=== PATIENT | male | born 1940 | race American Indian/Alaskan Native ===

== ENCOUNTER 2022-06-25 07:56 | Inpatient (IN) | payer MEDICARE ==
[2022-06-25] MEDS ORDERED: SODIUM CHLORIDE 0.9% 1000 ML 1,000 ML ONE (08:05)
[2022-06-25] MEDS ORDERED: SODIUM CHLORIDE 0.9% 1000 ML IV SOLN IV ONE (08:07)
--- NOTE | 2022-06-25 08:16 | Emergency Department Report ---
ED General Adult HPI - General Chief complaint: Altered Mental Status Stated complaint: AMS Time Seen by Provider: 06/25/22 07:59 Source: patient, EMS Mode of arrival: Stretcher Limitations: Altered Mental Status - History of Present Illness Initial comments: This is an 82-year-old male with medical history of stroke about 13 years ago and also prostate cancer who was recently started on bicalutamide this past Saturday brought in by EMS. Called out to EMS was a stroke like symptoms due to AMS and right sided weakness. EKG was done by EMS and with ST elevation; however, EKG was not transmitted to the ER prior to arrival. On arrival, patient was alert and oriented and denies any discomfort; denies chest discomfort/palpitation. Patient has right sided of upper extremity weakness which daughter states that has been going on since Saturday after he was started bicalutamide and noticed it was getting worse yesterday (unknown time) but today not able to move it. Per daughter, patient is able to walk with a front wheel walker at baseline and also is able to move his both upper extremities before as well. EMS EKG WAS SENT TO DR. BREWER AT [phone] AT 07:56AM; STATES ITS NOT STEMI BUT AF W/ BBB. CODE STROKE WAS ACTIVATED IMMEDIATELY. Severity scale (0 -10): 0 - Related Data Allergies Allergy/AdvReac Type Severity Reaction Status Date / Time No Known Allergies Allergy Verified 06/25/22 08:03 ED Review of Systems ROS: Stated complaint: AMS Other details as noted in HPI Comment: All other systems reviewed and negative Constitutional: no symptoms reported Eyes: as per HPI ENT: as per HPI Respiratory: no symptoms reported Cardiovascular: as per HPI Endocrine: no symptoms reported Gastrointestinal: as per HPI Musculoskeletal: other (RIGHT UPPER EXTREMITY WEAKNESS) Skin: as per HPI Neurological: other (RIGHT UPPER EXTREMITY WEAKNESS). denies: headache, weakness, numbness, paresthesias, confusion, abnormal gait Psychiatric: as per HPI Hematological/Lymphatic: as per HPI ED Past Medical Hx - Past Medical History Previous Medical History?: Yes Hx CVA: Yes Hx of Cancer: Yes (PROSTATE) ED Physical Exam - General Limitations: Altered Mental Status ED Course Vital Signs 06/25/22 06/25/22 06/25/22 07:59 08:11 08:34 Temperature 100.2 F H Pulse Rate 76 77 Respiratory 16 10 L Rate Blood Pressure Blood Pressure 78/40 [Left] O2 Sat by Pulse 100 99 Oximetry 06/25/22 06/25/22 08:45 09:01 Temperature Pulse Rate 79 Respiratory 21 Rate Blood Pressure 92/46 Blood Pressure [Left] O2 Sat by Pulse 98 Oximetry - Consultations Consultation #1: 06/25/22 08:21 EMS EKG WAS SENT TO DR. BREWER AT [phone] AT 07:56AM; STATES ITS NOT STEMI BUT AF W/ BBB. CODE STROKE WAS ACTIVATED IMMEDIATELY. PER NURSE, TELE NEUROLOGIST RECOMMEND CT HEAD W/O CONTRAST. ALSO NURSE BROUGHT TO MY ATTENTION THAT PATIENT'S BLOOD PRESSURE IS SOFT (78/40)WITH TEMPERATURE OF 100.2; I WILL EMPERICALLY BOLUS PATIENT AT 30MG/KG AND START SEPSIS PROTOCOL WELL. 06/25/22 08:[address] GAUTHIER; WOULDN'T TPA; BUT WOULD ADMIT FOR ENCEPHALOPATHY WORK UP AND GET MRI INPATIENT. WILL WAIT FOR REST OF LABS TO RETURN AND THEN ADMIT PATIENT. 06/25/22 10:[address] shelley who kindly accepted the patietn. ED Medical Decision Making - Lab Data Result diagrams: 06/25/22 08:23 06/25/22 08:23 Critical care attestation.: If time is entered above; I have spent that time in minutes in the direct care of this critically ill patient, excluding procedure time. ED Disposition Clinical Impression: Hypocalcemia, AMS (altered mental status), Prolonged QT interval Disposition: ADMITTED INPATIENT Is pt being admited?: Yes Does the pt Need Aspirin: No Condition: Stable Time of Disposition: 10:52
--- NOTE | 2022-06-25 08:42 | Cat Scan Report ---
CT HEAD WITHOUT CONTRAST INDICATION / CLINICAL INFORMATION: stroke protocol. TECHNIQUE: All CT scans at this location are performed using CT dose reduction for ALARA by means of automated e xposure control. COMPARISON: None available. FINDINGS: HEMORRHAGE: No evidence of intracranial hemorrhage or extra-axial fluid collection. EXTRA-AXIAL SPACES: Focal dilatation of cortical sulci and enlargement of the left sylvian fissure is noted adjacent to encephalomalacia secondary to large remote left MCA infarction. Elsewhere, the cor tical sulci and sylvian fissures are enlarged reflecting a degree of parenchymal volume loss which is within normal limits for the patient's age of 82 years. Basilar cisterns have an unremarkable appear ance. VENTRICULAR SYSTEM: The third and lateral ventricles are enlarged reflecting presence of age related parenchymal volume loss. In addition there is ex vacuo dilatation of the atria and occipital horn of the left lateral ventricle. CEREBRAL PARENCHYMA: Large areas of encephalomalacia are observed involving much of the left temporal lobe and portions of the left frontal operculum. Additional areas of encephalomalacia are observed i n the left parietal lobe and at the right frontoparietal vertex. These findings reflect the sequelae of multiple remote cortical infarctions. MIDLINE SHIFT OR HERNIATION: There is no mass effect. CEREBELLUM / BRAINSTEM: Several remote infarctions are observed in the left cerebellar hemisphere. MIDLINE STRUCTURES:Pituitary gland has an unremarkable appearance. No abnormalities are seen in the p ineal region. INTRACRANIAL VESSELS:Calcified atherosclerotic plaque is present along the course of the cavernous se gments of both internal carotid arteries. Similar findings are seen at the distal vertebral arteries. CRANIOCERVICAL JUNCTION:No significant abnormality. ORBITS: visualized portions of the orbits have an unremarkable appearance. SOFT TISSUES of HEAD: No significant abnormality. CALVARIUM: Evaluation of bone windows reveals no abnormalities. PARANASAL SINUSES / MASTOID AIR CELLS: Paranasal sinuses are free from inflammatory mucosal disease. Mastoid air cells are normally pneumatized. IMPRESSION: 1. Age-related atrophy and microvascular ischemic change. 2. Large regions of encephalomalacia are present in multiple vascular distributions secondary to mult ifocal remote cortical infarctions as described above. 2. No acute intracranial abnormality. Signer Name: Jim Stokes MD Signed: 06/25/2022 8:37 AM Workstation Name: [id number]
--- NOTE | 2022-06-25 08:47 | XRay Report ---
CHEST 1 VIEW 06/25/2022 7:40 AM INDICATION / CLINICAL INFORMATION: stroke like symptoms. COMPARISON: None available. FINDINGS: SUPPORT DEVICES: None. HEART / MEDIASTINUM: Heart is upper normal size for AP portable technique. LUNGS / PLEURA: No significant pulmonary or pleural abnormality. No pneumothorax. ADDITIONAL FINDINGS: No significant additional findings. IMPRESSION: 1. No acute findings. Signer Name: Nasreen Brown MD Signed: 06/25/2022 8:42 AM Workstation Name: [id number]
--- NOTE | 2022-06-25 09:04 | Consultation ---
History of Present Illness - Reason for Consult Consult date: 06/25/22 - History of Present Illness [facility] Consult Note # Demographics Consult Type: Acute Stroke Level 1 (0-4.5 hrs) Patient Location: Emergency Room First Name: Jim Last Name: Laverne Date of : 1940 Age: 82 Gender: Male Facility: [facility] Time of Initial Page (Eastern Time): 06/25/2022, 08:00 Time of Return Call (Eastern Time): 06/25/2022, 08:00 # HPI History: 82yo man who has had increasing weakness and more confusion for the last day or so. # Scores Time of exam and NIHSS ( Time): 06/25/2022, 08:06 Level of Consciousness 1a: [0] = Alert; keenly responsive LOC Questions 1b: [1] = Answers one correctly LOC Commands 1c: [1] = Performs one correctly Best Gaze 2: [0] = Normal Visual 3: [0] = No visual loss Facial Palsy 4: [1] = Minor paralysis Motor Arm Left 5a: [1] = Drift Motor Arm Right 5b: [2] = Some effort against gravity Motor Leg Left 6a: [3] = No effort against gravity Motor Leg Right 6b: [3] = No effort against gravity Limb Ataxia 7: [0] = Absent Sensory 8: [0] = Normal Best Language 9: [3] = Mute Dysarthria 10: [2] = Severe dysarthria Extinction and Inattention 11: [0] = No abnormality NIHSS Total: 17 # Exam Vitals: vital signs reviewed # PMH-FH-SH Past Medical History: stroke baseline right sided weakness # Data Head CT: no bleed # Assessment Impression: Altered Mental Status Weakness # Plan Thrombolytic/Intervention: NOT IV Thrombolysis or IA Intervention candidate Thrombolytic Exclusion (< 3 hour window): time of onset unclear Intraarterial Exclusion: clinically not consistent with stroke Labs: Ammonia B12 comprehensive metabolic panel ESR liver function tests TSH urine drug screen ua Imaging: (urgency: routine): MRI Brain without contrast only if no other cause found for altered mentation Other: telemetry monitoring I have discussed my recommendations with the referring provider Medications and Allergies Allergies Allergy/AdvReac Type Severity Reaction Status Date / Time No Known Allergies Allergy Verified 06/25/22 08:03 Exam - Constitutional Vitals: Temp Pulse Resp BP Pulse Ox 100.2 F H 79 21 92/46 98 06/25/22 07:59 06/25/22 08:45 06/25/22 08:45 06/25/22 08:45 06/25/22 09:01
[2022-06-25 09:37] LABS: Hematocrit 37.5 % (35.5-45.6); Hemoglobin 11.9 gm/dl (11.8-15.2); Mean Corpuscular HGB Conc 32 % (32-34); Mean Corpuscular Volume 83 fl (84-94); Platelet Count 225 K/mm3 (140-440); Red Blood Count 4.54 M/mm3 (3.65-5.03); Red Cell Distribution Width 16.4 % (13.2-15.2)
[2022-06-25 09:43] LABS: INR 1.27 (0.87-1.13)
[2022-06-25 09:44] LABS: Partial Thromboplastin Time 34.3 Sec. (24.2-36.6)
[2022-06-25 09:49] LABS: Mucus,Urine FEW /HPF
[2022-06-25 09:55] LABS: Alanine Aminotransferase 30 units/L (7-56); Albumin 2.5 g/dL (3.9-5); BUN/Creatinine Ratio 13; Blood Urea Nitrogen 17 mg/dL (9-20); Calcium 7.2 mg/dL (8.4-10.2); Hemolysis Index 58
[2022-06-25 10:20] LABS: Bilirubin,Urine Negative (Negative); Blood,Urine Negative (Negative); Color,Urine Amber (Yellow); Protein,Urine <30 mg dL mg/dL (Negative)
[2022-06-25 10:21] LABS: Urobilinogen,Urine < 2.0 mg/dL (<2.0)
[2022-06-25] MEDS ORDERED: ALBUTEROL 2.5 MG/3 ML NEBU IH PRN (11:23)
[2022-06-25] MEDS ORDERED: PROMETHAZINE 25 MG RECT SUPP PR PRN (11:23)
[2022-06-25] MEDS ORDERED: NALOXONE 0.4 MG/1 ML INJ IV PRN (11:23)
[2022-06-25] MEDS ORDERED: ONDANSETRON 4 MG/2 ML INJ IV PRN ×2 (11:23)
[2022-06-25] MEDS ORDERED: METOCLOPRAMIDE 10 MG TAB PO PRN (11:23)
[2022-06-25] MEDS ORDERED: oxyCODONE /ACETAMINOPHEN 5-325MG TAB PO PRN ×2 (11:23)
[2022-06-25] MEDS ORDERED: ACETAMINOPHEN 325 MG TAB PO PRN ×2 (11:23)
[2022-06-25] MEDS ORDERED: MAGNESIUM HYDROXIDE (MOM) ORAL LIQD UDC PO PRN (11:23)
[2022-06-25] MEDS ORDERED: SODIUM BICARB 8.4% 50 MEQ/50 ML SYRINGE IV ONE (11:43)
--- NOTE | 2022-06-25 11:43 | History and Physical Report ---
History of Present Illness Date of examination: 06/25/22 Date of admission: 06/25/22 Chief complaint: AMS History of present illness: Patient is an 82-year-old male with past medical history of CVA about 13 years ago, stage IV prostate cancer currently started on bicalutamide 3 days ago. He presents to the ED today with complaints of strokelike symptoms worsening co nfusion and right-sided weakness with spasms. Per the the patient has some expressive aphasia that appeared to have worsened today and since the initiation of thebicalutamide the patient has been experiencing right-sided upper extremity weakness but today had increased spasm on the right upper extremity and worsening confusion today. They brought him to the ER where code stroke was called there was also concern of abnormality on the EKG which showed A. fib with bundle branch block instead. There was also noted hypotension and patient recommended for inpatient admission. Initial CT scan of the head shows the previous stroke but no acute pathology at this time. Patient does not present any fever patient is accompanied by the who denies any nausea vomiting or diarrhea. Patient was seen by teleneurology who states that he is not a candidate for tPA but recommended further stroke work-up if no other finding for the altered mental status Past History Past Medical History: stroke (Over 13 years ago) Social history: no significant social history, full code. denies: smoking, alcohol abuse, prescription drug abuse, IV drug use Family history: no significant family history Medications and Allergies Allergies Allergy/AdvReac Type Severity Reaction Status Date / Time No Known Allergies Allergy Verified 06/25/22 08:03 Home Medications Medication Instructions Recorded Confirmed Last Taken Type Bicalutamide [Casodex] 50 mg PO DAILY 06/25/22 06/25/22 06/24/22 History Simvastatin 20 mg PO DAILY 06/25/22 06/25/22 06/24/22 History Tamsulosin [Flomax] 0.4 mg PO QDAY 06/25/22 06/25/22 06/24/22 History lisinopriL [Lisinopril] 20 mg PO DAILY 06/25/22 06/25/22 06/24/22 History Active Meds: Active Medications Acetaminophen (Acetaminophen 325 Mg Tab) 650 mg PO Q4H PRN PRN Reason: Pain, Mild (1-3) Albuterol (Albuterol 2.5 Mg/3 Ml Nebu) 2.5 mg IH Q3HRT PRN PRN Reason: Shortness Of Breath Aspirin (Aspirin 325 Mg Tab) 325 mg PO QDAY RAMEZ Atorvastatin Calcium (Atorvastatin 40 Mg Tab) 40 mg PO QHS RAMEZ Bisacodyl (Bisacodyl 10 Mg Rect Supp) 10 mg CO QDAY PRN PRN Reason: Constipation Heparin Sodium (Porcine) (Heparin 5,000 Unit/1 Ml Vial) 5,000 unit SUB-Q Q8HR RAMEZ Magnesium Hydroxide (Magnesium Hydroxide (Mom) Oral Liqd Udc) 30 ml PO Q4H PRN PRN Reason: Constipation Metoclopramide HCl (Metoclopramide 10 Mg Tab) 10 mg PO Q6H PRN PRN Reason: Nausea And Vomiting Naloxone HCl (Naloxone 0.4 Mg/1 Ml Inj) 0.1 mg IV Q2MIN PRN PRN Reason: Res Rate </= 8 or 02 SAT < 92% Ondansetron HCl (Ondansetron 4 Mg/2 Ml Inj) 4 mg IV Q8H PRN PRN Reason: Nausea And Vomiting Ondansetron HCl (Ondansetron 4 Mg/2 Ml Inj) 4 mg IV Q8H PRN PRN Reason: Nausea And Vomiting Oxycodone/Acetaminophen (Oxycodone /Acetaminophen 5-325mg Tab) 1 tab PO Q6H PRN PRN Reason: Pain, Moderate (4-6) Promethazine HCl (Promethazine 25 Mg Rect Supp) 25 mg CO Q6H PRN PRN Reason: Nausea And Vomiting Senna (Sennosides 8.6 Mg Tab) 8.6 mg PO BID RAMEZ Sodium Chloride (Sodium Chloride 0.9% 10 Ml Flush Syringe) 10 ml IV BID RAMEZ Sodium Chloride (Sodium Chloride 0.9% 10 Ml Flush Syringe) 10 ml IV PRN PRN PRN Reason: LINE FLUSH Sodium Chloride (Sodium Chloride 0.9% 10 Ml Flush Syringe) 10 ml INJ PRN PRN PRN Reason: LINE FLUSH Review of Systems All systems: negative Constitutional: weakness (Right-sided upper extremity), no weight loss, no weight gain, no fever, no chills, no sweats, no night sweats, no anorexia, no fatigue Cardiovascular: no chest pain, no orthopnea, no palpitations, no rapid/irregular heart beat, no syncope, no lightheadedness, no shortness of breath Respiratory: no cough, no excessive sputum, no hemoptysis, no shortness of breath, no dyspnea on exertion Gastrointestinal: no nausea, no diarrhea Musculoskeletal: muscle weakness, no neck stiffness, no neck pain, no shooting arm pain, no arm numbness/tingling, no low back pain, no shooting leg pain, no leg numbness/tingling, no redness of joints, no morning stiffness Integumentary: no rash, no redness, no sores, no darkening of skin Neurological: paralysis, weakness, numbness, paralysis, no head injury, no transient paralysis Exam - Physical Exam Narrative exam: VITAL SIGNS: Reviewed. GENERAL: The patient appears normally developed, Vital signs as documented. HEAD: No signs of head trauma. EYES: Pupils are equal. Extraocular motions intact. EARS: Hearing grossly intact. MOUTH: Oropharynx is normal. NECK: No adenopathy, no JVD. CHEST: Chest with clear breath sounds bilaterally. No wheezes, rales, or rhonchi. CARDIAC: Regular rate and rhythm. S1 and S2, without murmurs, gallops, or ru bs. VASCULAR: No Edema. Peripheral pulses normal and equal in all extremities. ABDOMEN: Soft, non tender and non distended. No rebound or guarding, and no masses palpated. Bowel Sounds normal. MUSCULOSKELETAL: Good range of motion of all major joints. Extremities without clubbing, cyanosis or edema. NEUROLOGIC EXAM: Alert and oriented x 3 no focal sensory deficit. Patient does have right upper extremity spasm with motor strength of 3/5. Dysarthria expressive aphasia. Follows commands. PSYCHIATRIC: Mood normal. SKIN: detail exam as documented in skin assessment - Constitutional Vitals: Temp Pulse Resp BP Pulse Ox 100.2 F H 79 21 92/46 98 06/25/22 07:59 06/25/22 08:45 06/25/22 08:45 06/25/22 08:45 06/25/22 09:01 Results - Labs CBC & Chem 7: 06/25/22 08:23 06/25/22 08:23 Labs: Laboratory Last Values WBC 9.5 K/mm3 (4.5-11.0) 06/25/22 08:23 RBC 4.54 M/mm3 (3.65-5.03) 06/25/22 08:23 Hgb 11.9 gm/dl (11.8-15.2) 06/25/22 08:23 Hct 37.5 % (35.5-45.6) 06/25/22 08:23 MCV 83 fl (84-94) L 06/25/22 08:23 MCH 26 pg (28-32) L 06/25/22 08:23 MCHC 32 % (32-34) 06/25/22 08:23 RDW 16.4 % (13.2-15.2) H 06/25/22 08:23 Plt Count 225 K/mm3 (140-440) 06/25/22 08:23 PT 17.4 Sec. (12.2-14.9) H 06/25/22 08:23 INR 1.27 (0.87-1.13) H 06/25/22 08:23 APTT 34.3 Sec. (24.2-36.6) 06/25/22 08:23 Sodium 134 mmol/L (137-145) L 06/25/22 08:23 Potassium 4.5 mmol/L (3.6-5.0) 06/25/22 08:23 Chloride 108.7 mmol/L (98-107) H 06/25/22 08:23 Carbon Dioxide 16 mmol/L (22-30) L 06/25/22 08:23 Anion Gap 14 mmol/L 06/25/22 08:23 BUN 17 mg/dL (9-20) 06/25/22 08:23 Creatinine 1.3 mg/dL (0.8-1.3) 06/25/22 08:23 Estimated GFR > 60 ml/min 06/25/22 08:23 BUN/Creatinine Ratio 13 % 06/25/22 08:23 Glucose 89 mg/dL (75-100) 06/25/22 08:23 POC Glucose 100 mg/dL (70-105) 06/25/22 08:03 Lactic Acid 2.00 mmol/L (0.7-2.0) 06/25/22 08:48 Calcium 7.2 mg/dL (8.4-10.2) L 06/25/22 08:23 Magnesium 1.70 mg/dL (1.7-2.3) 06/25/22 08:23 Total Bilirubin 0.70 mg/dL (0.1-1.2) 06/25/22 08:23 AST 170 units/L (5-40) H 06/25/22 08:23 ALT 30 units/L (7-56) 06/25/22 08:23 Alkaline Phosphatase 356 units/L (35-129) H 06/25/22 08:23 Total Protein 5.4 g/dL (6.3-8.2) L 06/25/22 08:23 Albumin 2.5 g/dL (3.9-5) L 06/25/22 08:23 Albumin/Globulin Ratio 0.9 % 06/25/22 08:23 Urine Color [place] (Yellow) 06/25/22 09:24 Urine Turbidity Clear (Clear) 06/25/22 09:24 Urine pH 6.0 (5.0-7.0) 06/25/22 09:24 Ur Specific [place] 1.020 (1.003-1.030) 06/25/22 09:24 Urine Protein <30 mg dl mg/dL (Negative) 06/25/22 09:24 Urine Glucose (UA) Negative mg/dL (Negative) 06/25/22 09:24 Urine Ketones Negative mg/dL (Negative) 06/25/22 09:24 Urine Blood Negative (Negative) 06/25/22 09:24 Urine Nitrite Negative (Negative) 06/25/22 09:24 Ur Reducing Substances Not Reportable 06/25/22 09:24 Urine Bilirubin Negative (Negative) 06/25/22 09:24 Urine Ictotest Not Reportable 06/25/22 09:24 Urine Urobilinogen < 2.0 mg/dL (<2.0) 06/25/22 09:24 Ur Leukocyte Esterase Trace (Negative) 06/25/22 09:24 Urine WBC (Auto) 5.0 /HPF (0.0-6.0) 06/25/22 09:24 Urine RBC (Auto) 11.0 /HPF (0.0-6.0) 06/25/22 09:24 U Epithel Cells (Auto) 2.0 /HPF (0-13.0) 06/25/22 09:24 Urine Mucus Few /HPF 06/25/22 09:24 Assessment and Plan Assessment and plan: Patient is an 82-year-old male with past medical history of CVA about 13 years ago, stage IV prostate cancer currently started on bicalutamide 3 days ago. He presents to the ED today with complaints of strokelike symptoms worsening confusion and right-sided weakness with spasms. Per the the patient has some expressive aphasia that appeared to have worsened today and since the initiation of thebicalutamide the patient has been experiencing right-sided upper extremity weakness but today had increased spasm on the right upper extremity and worsening confusion today. They brought him to the ER where code stroke was called there was also concern of abnormality on the EKG which showed A. fib with bundle branch block instead. There was also noted hypotension and patient recommended for inpatient admission. Initial CT scan of the head shows the previous stroke but no acute pathology at this time. Patient does not present any fever patient is accompanied by the who denies any nausea vomiting or diarrhea. Patient was seen by teleneurology who states that he is not a candidate for tPA but recommended further stroke work-up if no other finding for the altered mental status Systemic inflammatory response syndrome without organ dysfunction Metabolic acidosis Hypotension- Unknown etiology, R/O Sepsis Hypoalbuminemia with moderate protein calorie malnutrition Hypocalcemia with corrected calcium showing 8.4 Prolonged QT interval Atrial fibrillation without RVR Acute on chronic metabolic encephalopathy Prior history of stroke Expressive aphasia Right-sided upper extremity paresis slightly worse Plan Admit to ICU Stroke protocol-start on ASA and statin Hold all ANTI HYPERTENSIVE MEDS considering Hypotension Check Lactate and Blood cultures No antibiotics indicated at this time MRI brain without contrast Neurology consult Dovetailer consult discussed with the team Cardiology consultation Speech, PT and OT evaluation Obtain appropriate home medications restart required meds we will hold bicalutamide at this time Obtained TSH, ammonia level, UDS Aspiration and fall precautions DVT and GI prophylaxis Plan of care discussed with the patient and the in detail. Critical care time spent 35 minutes. Advance care planning for 20 additional minutes family reports status as full code. Advance Directives: Yes Plan of care discussed with patient/family: Yes
--- NOTE | 2022-06-25 15:16 | Consultation ---
History of Present Illness Consult date: 06/25/22 Reason for Consult: CVA Chief complaint: Right arm weakness History of present illness: 82 yo male, right-handed, with cva 10 years ago (occassional difficulty with speech), stage IV prostate cancer, glaucoma with progressive vision loss, arthritis, who presents with initiation of baclutamide recently and noted with new onset of weakness of the right arm (LKNormal is unclear but may be evening of 06/21/22 or the morning of 06/22/22). Currently, the granddaughter is at his bedside and notes that he does occassionally have trouble thinking of he right words but the difficulty with speech currently is more than his normal baseline. It is unclear to her if the patient has any active bleeding. Past History Past Medical History: stroke (Over 13 years ago), other (stage IV prostate cancer, arthritis;) Past Surgical History: Other (pt cannot provide hx;) Social history: no significant social history, full code. denies: smoking, alcohol abuse, prescription drug abuse, IV drug use Family history: no significant family history Medications and Allergies Allergies Allergy/AdvReac Type Severity Reaction Status Date / Time No Known Allergies Allergy Verified 06/25/22 08:03 Home Medications Medication Instructions Recorded Confirmed Last Taken Type Bicalutamide [Casodex] 50 mg PO DAILY 06/25/22 06/25/22 06/24/22 History Simvastatin 20 mg PO DAILY 06/25/22 06/25/22 06/24/22 History Tamsulosin [Flomax] 0.4 mg PO QDAY 06/25/22 06/25/22 06/24/22 History lisinopriL [Lisinopril] 20 mg PO DAILY 06/25/22 06/25/22 06/24/22 History Active Meds: Active Medications Acetaminophen (Acetaminophen 325 Mg Tab) 650 mg PO Q4H PRN PRN Reason: Pain, Mild (1-3) Albuterol (Albuterol 2.5 Mg/3 Ml Nebu) 2.5 mg IH Q3HRT PRN PRN Reason: Shortness Of Breath Aspirin (Aspirin 325 Mg Tab) 325 mg PO QDAY RAMEZ Atorvastatin Calcium (Atorvastatin 40 Mg Tab) 40 mg PO QHS RAMEZ Bisacodyl (Bisacodyl 10 Mg Rect Supp) 10 mg [place] QDAY PRN PRN Reason: Constipation Heparin Sodium (Porcine) (Heparin 5,000 Unit/1 Ml Vial) 5,000 unit SUB-Q Q8HR RAMEZ Magnesium Hydroxide (Magnesium Hydroxide (Mom) Oral Liqd Udc) 30 ml PO Q4H PRN PRN Reason: Constipation Metoclopramide HCl (Metoclopramide 10 Mg Tab) 10 mg PO Q6H PRN PRN Reason: Nausea And Vomiting Naloxone HCl (Naloxone 0.4 Mg/1 Ml Inj) 0.1 mg IV Q2MIN PRN PRN Reason: Res Rate </= 8 or 02 SAT < 92% Ondansetron HCl (Ondansetron 4 Mg/2 Ml Inj) 4 mg IV Q8H PRN PRN Reason: Nausea And Vomiting Oxycodone/Acetaminophen (Oxycodone /Acetaminophen 5-325mg Tab) 1 tab PO Q6H PRN PRN Reason: Pain, Moderate (4-6) Promethazine HCl (Promethazine 25 Mg Rect Supp) 25 mg GA Q6H PRN PRN Reason: Nausea And Vomiting Senna (Sennosides 8.6 Mg Tab) 8.6 mg PO BID RAMEZ Sodium Chloride (Sodium Chloride 0.9% 10 Ml Flush Syringe) 10 ml IV BID RAMEZ Sodium Chloride (Sodium Chloride 0.9% 10 Ml Flush Syringe) 10 ml IV PRN PRN PRN Reason: LINE FLUSH Tamsulosin HCl (Tamsulosin 0.4 Mg Cap) 0.4 mg PO QDAY RAMEZ Review of Systems All systems: negative (as per hpi and limited by pt's dysphasia;) Physical Examination - Vital Signs Vital Signs: Vital Signs Temp 100.2 F H 06/25/22 07:59 - Physical Exam Narrative exam: Gen: nad; Head: normocephalic; Eyes: no gaze deviation; no ptosis; ENT: normal vocalization; CVS: warm and well-perfused; Pulm: no respiratory distress; GI: appears non-distended; Ext: no cyanosis appreciated at distal extremities; Skin: no acute rash at distal extremities; Heme: no pathologic ecchymosis appreciated at distal extremities; Neuro: alert, oriented to name, not age, not month, not year, +perseveration; moderate dysphasia/aphasia (mixed expressive/receptive); CN 2 - Left PRRL, visual granado grossly intact on the left with patchy deficits in the right visual field, CN 3, 4, 6 - EOMI, CN 5 - facial sensation symmetric to light touch, CN 7 - facial movement symmetric, CN 8 - hearing grossly intact, CN 9, 10 - uvula midline, CN 11 symmetric shoulder movement, CN 12 - tongue midline; Motor - at least 4/5 at left exts; at least 3/5 at proximal rue/ 0/5 at distal rue; at least 3+/5 at proximal rle, at least 4/5 at distal rle; Sensory - light touch decreased at rle, Cerebellar - fnf /hts difficult due to dysphasia/aphasia, Gait - deferred secondary to fall risk; NIHSS (1a.) Level of Consciousness:0 (1b.) LOC Questions:2 (1c.) LOC Commands:1 (2.) Best Gaze:0 (3.) Visual:2 (4.) Facial Palsy:0 (5a.) Motor Arm, Left:1 (5b.) Motor Arm, Right:2 (6a.) Motor Leg, Left:2 (6b.) Motor Leg, Right:2 (7.) Limb Ataxia:0 (8.) Sensory:1 (9.) Best Language:1 (10.) Dysarthria:1 (11.) Extinction and Inattention:1 NIHSS Total Score: 16 Results - Laboratory Findings CBC and BMP: 06/25/22 08:23 06/25/22 08:23 Abnormal Lab Findings: Abnormal Labs 06/25/22 06/25/22 06/25/22 08:23 08:23 08:23 MCV 83 L MCH 26 L RDW 16.4 H PT 17.4 H INR 1.27 H Sodium 134 L Chloride 108.7 H Carbon Dioxide 16 L Calcium 7.2 L AST 170 H Alkaline Phosphatase 356 H Total Protein 5.4 L Albumin 2.5 L Assessment and Plan 82 yo right-handed male with cva 10 years ago (occasional difficulty with speech), stage IV prostate cancer, glaucoma with progressive vision loss, arthritis, who presents with initiation of bicalutamide recently and noted with new onset of weakness of the right arm (LKNormal is unclear but may be evening of 06/21/22 or the morning of 06/22/22). 1. Acute Ischemic Stroke: ASA 81 mg PO qday, MRI Brain w/o contrast (when clinically stable), CTA Head/Neck w/ & w/o contrast (when clinically stable), TTEcho, confirm LDL/TSH/Covid-19, telemetry, NIHSS q4 hours; SBP goal 160-200 mmHg and DBP 80-100 mmHg for 72 hours. Statin therapy for a goal LDL of 70, when patient passes swallow evaluation. PT/OT/ST/Swallow evaluation. Long-term risk-factor modification, including a strict diet/exercise regimen for secondary stroke prophylaxis. Stroke education prior to discharge. 2. Hypotension (Relative) - ideally, in the setting of stroke, goal SBP 160-200 mmHg and DBP 80-100 mmHg for 72 hours; management per primary team. 3. Dysarthria / Dysphagia - st / swallow evaluation/monitoring. 4. Right Arm Weakness - pt/ot evaluation/monitoring. 5. Unsteady Gait - pt/ot evaluation/monitoring. 6. Vision Loss - low vision ot evaluation/monitoring. 7. Prostate Cancer - consider alternative therapy to bicaluatmide if true culprit for afib; per oncology. 8. Paroxysmal Afib - consider long-term anticoagulation for secondary stroke prophylaxis if "non-triggered" afib, per cardiology. 9. Metabolic Encephalopathy - in the setting of underlying fever, hypotension, transaminitis; r/o underlying infectious, toxic etiology per primary team. 10. Aspiration / Fall precautions. Zev Samuel MD [facility] [id number]
[2022-06-25] MEDS: MIDODRINE 5 MG TAB PO SCH (16:42)
[2022-06-25] MEDS ORDERED: SODIUM CHLORIDE 0.9% 1000 ML 1,000 ML IV SCH (18:00)
--- NOTE | 2022-06-25 18:04 | Consultation ---
History of Present Illness History of present illness: This is patient with hx of hypertension was on lisinopril and new dx of stage 4 prostate cancer. His daughter reports that he was started on anew med and it was not tolerated. She reports that after 2 days he began having contracture in UE. she stopped med but he had persistent symptoms with decrease in oral intake over the past few days. She reports that his antiHTN meds were dc secondary to decrease BP. He also had decrease in mental status and she brought him to ER for evaluation. Pt was also noted to be hypotensive in the ER Presently pt is awake answers questions slowly. Daughter at bedside (Hard of hearing) Past History Past Medical History: hypertension, stroke (Over 13 years ago), other (stage IV prostate cancer, arthritis;glaucoma) Past Surgical History: Other (pt cannot provide hx;) Social history: no significant social history, full code, other ( recently ). denies: smoking, alcohol abuse, prescription drug abuse, IV drug use Family history: no significant family history Medications and Allergies Allergies Allergy/AdvReac Type Severity Reaction Status Date / Time No Known Allergies Allergy Verified 06/25/22 08:03 Home Medications Medication Instructions Recorded Confirmed Last Taken Type Bicalutamide [Casodex] 50 mg PO DAILY 06/25/22 06/25/22 06/24/22 History Simvastatin 20 mg PO DAILY 06/25/22 06/25/22 06/24/22 History Tamsulosin [Flomax] 0.4 mg PO QDAY 06/25/22 06/25/22 06/24/22 History lisinopriL [Lisinopril] 20 mg PO DAILY 06/25/22 06/25/22 06/24/22 History Active Meds: Active Medications Acetaminophen (Acetaminophen 325 Mg Tab) 650 mg PO Q4H PRN PRN Reason: Pain, Mild (1-3) Albuterol (Albuterol 2.5 Mg/3 Ml Nebu) 2.5 mg IH Q3HRT PRN PRN Reason: Shortness Of Breath Aspirin (Aspirin 325 Mg Tab) 325 mg PO QDAY RAMEZ Atorvastatin Calcium (Atorvastatin 40 Mg Tab) 40 mg PO QHS RAMEZ Bisacodyl (Bisacodyl 10 Mg Rect Supp) 10 mg [place] QDAY PRN PRN Reason: Constipation Heparin Sodium (Porcine) (Heparin 5,000 Unit/1 Ml Vial) 5,000 unit SUB-Q Q8HR [facility] Sodium Chloride (Nacl 0.9% 1000 Ml) 1,000 mls @ 42 mls/hr IV DIRECT [facility] Magnesium Hydroxide (Magnesium Hydroxide (Mom) Oral Liqd Udc) 30 ml PO Q4H PRN PRN Reason: Constipation Metoclopramide HCl (Metoclopramide 10 Mg Tab) 10 mg PO Q6H PRN PRN Reason: Nausea And Vomiting Midodrine (Midodrine 5 Mg Tab) 10 mg PO TID@0800,1200,1600 [facility] Last Admin: 06/25/22 16:42 Dose: 10 mg Naloxone HCl (Naloxone 0.4 Mg/1 Ml Inj) 0.1 mg IV Q2MIN PRN PRN Reason: Res Rate </= 8 or 02 SAT < 92% Ondansetron HCl (Ondansetron 4 Mg/2 Ml Inj) 4 mg IV Q8H PRN PRN Reason: Nausea And Vomiting Oxycodone/Acetaminophen (Oxycodone /Acetaminophen 5-325mg Tab) 1 tab PO Q6H PRN PRN Reason: Pain, Moderate (4-6) Promethazine HCl (Promethazine 25 Mg Rect Supp) 25 mg [place] Q6H PRN PRN Reason: Nausea And Vomiting Senna (Sennosides 8.6 Mg Tab) 8.6 mg PO BID [facility] Sodium Chloride (Sodium Chloride 0.9% 10 Ml Flush Syringe) 10 ml IV BID [facility] Sodium Chloride (Sodium Chloride 0.9% 10 Ml Flush Syringe) 10 ml IV PRN PRN PRN Reason: LINE FLUSH Tamsulosin HCl (Tamsulosin 0.4 Mg Cap) 0.4 mg PO QDAY [facility] Review of Systems Eyes: bilateral: decreased vision Genitourinary Male: other (prostate cancer ) Physical Examination Vital signs: Vital Signs Temp 100.2 F H 06/25/22 07:59 General appearance: no acute distress, other (awake) Eyes: non-icteric, other (yellow discharge from rt eye) ENT: oropharynx moist Neck: supple Ascultation: Bilateral: diminished breath sounds Cardiovascular: irregular rhythm Gastrointestinal: normoactive bowel sounds Integumentary: normal Extremities: no cyanosis Musculoskeletal: no deformities Gait: other (not done) Results - Laboratory Findings CBC and BMP: 06/25/22 08:23 06/25/22 08:23 PT/INR, D-dimer PT 17.4 Sec. (12.2-14.9) H 06/25/22 08:23 INR 1.27 (0.87-1.13) H 06/25/22 08:23 Abnormal lab findings: Abnormal Labs 06/25/22 06/25/22 06/25/22 08:23 08:23 08:23 MCV 83 L MCH 26 L RDW 16.4 H PT 17.4 H INR 1.27 H Sodium 134 L Chloride 108.7 H Carbon Dioxide 16 L Calcium 7.2 L AST 170 H Alkaline Phosphatase 356 H Total Protein 5.4 L Albumin 2.5 L - Diagnostic Findings Chest x-ray: report reviewed Assessment and Plan - Patient Problems (1) Hypotension Current Visit: Yes Status: Acute (2) Prostate cancer Current Visit: Yes Status: Acute (3) Glaucoma Current Visit: Yes Status: Acute (4) Volume depletion, unspecified Current Visit: Yes Status: Acute (5) AMS (altered mental status) Current Visit: Yes Status: Acute (6) Hypocalcemia Current Visit: Yes Status: Acute (7) Prolonged QT interval Current Visit: Yes Status: Acute
[2022-06-25 20:26] LABS: Amphetamine Screen,Urine PRESUMPTIVE NEGATIVE; Benzodiazepines Screen,Urine PRESUMPTIVE NEGATIVE; Cannabinoid Screen,Urine PRESUMPTIVE NEGATIVE; Cocaine Screen,Urine PRESUMPTIVE NEGATIVE; Methadone Screen,Urine PRESUMPTIVE NEGATIVE; Opiate Screen,Urine PRESUMPTIVE NEGATIVE
[2022-06-25] MEDS ORDERED: SODIUM CHLORIDE 0.9% 500 ML 500 ML IV ONE (21:00)
[2022-06-25] MEDS: HEPARIN 5,000 UNIT/1 ML VIAL SUB-Q SCH (21:34)
[2022-06-25] MEDS: SENNOSIDES 8.6 MG TAB PO SCH (21:38)
[2022-06-25] MEDS: HYPROMELLOSE 0.5% OPHTH SOLN 15 ML OU SCH (21:39)
[2022-06-25] MEDS ORDERED: NORepinephrine/NS 8 MG-250 ML 8 MG/250 ML INFUS..BTL IV SCH (23:06)
[2022-06-25] MEDS ORDERED: SODIUM CHLORIDE 0.9% 1000 ML 1,000 ML IV ONE (23:26)
[2022-06-26 05:07] LABS: Basophils % (Auto) 0.2 % (0.0-1.8); Hematocrit 38.6 % (35.5-45.6); Hemoglobin 12.3 gm/dl (11.8-15.2); Lymphocytes # (Auto) 1.4 K/mm3 (1.2-5.4); Lymphocytes % (Auto) 11.8 % (13.4-35.0); Mean Corpuscular HGB Conc 32 % (32-34); Mean Corpuscular Volume 82 fl (84-94); Monocytes # (Auto) 1.3 K/mm3 (0.0-0.8); Monocytes % (Auto) 10.7 % (0.0-7.3); Platelet Count 218 K/mm3 (140-440); Red Cell Distribution Width 16.9 % (13.2-15.2)
[2022-06-26 05:30] LABS: Albumin 2.8 g/dL (3.9-5); Calcium 7.8 mg/dL (8.4-10.2); Chol/HDL Ratio 2.54 %
[2022-06-26] MEDS: HYPROMELLOSE 0.5% OPHTH SOLN 15 ML OU SCH ×3 (07:24→21:13)
[2022-06-26] MEDS: HEPARIN 5,000 UNIT/1 ML VIAL SUB-Q SCH ×3 (07:25→21:12)
[2022-06-26] MEDS: MIDODRINE 5 MG TAB PO SCH ×3 (09:00→16:00)
[2022-06-26] MEDS: cefTRIAXone/NS 1 GM/50 ML 1 GM/50 ML BAG IV SCH (09:00)
--- NOTE | 2022-06-26 09:38 | Electrocardiograph Report ---
[facility] Test Date: 2022-06-25 Test Time: 07:59:26 Pat Name: JENNIFER VALDIVIA Department: Room: A255 Gender: M Chief Executive: KYREE : 1940 Requested By: MAYE SANDS Order Number: [id number] Reading MD: Valerio Rod Measurements Intervals Scalf Rate: 76 P: 0 AL: 196 QRS: -85 QRSD: 150 T: 78 QT: 426 QTc: 477 Interpretive Statements Sinus rhythm Atrial premature complexes Right bundle branch block ST elevation secondary to IVCD No previous ECG available for comparison Electronically Signed On 06-26-2022 9:38:19 EDT by Valerio Rod
--- NOTE | 2022-06-26 10:20 | Magnetic Resonance Report ---
NONENHANCED MR SCAN OF THE BRAIN: INDICATION / CLINICAL INFORMATION: CVA. TECHNIQUE: Multiplanar, multisequence MR images of the brain obtained. COMPARISON: CT scan of the head 06/25/2022 FINDINGS: BRAIN / INTRACRANIAL CONTENTS: Subacute border zone ischemia in the left external frontal zone, left centrum semiovale; subacute ischemia left precentral gyrus involving the hand center and left lateral precentral gyrus and superior frontal gyrus; these lesions are more than 12 levels old (increased T2 signal intensity) but less than 5 days old (low ADC) chronic ischemic lesions in the left cerebellar hemisphere, right periventricular white matter extending towards the right occipital lobe, MCA infer ior division territory; Wallerian degeneration in the left corticospinal tract In the CT scan, slight prominence soft tissue above the left anterior clinoid process; no obvious men ingioma seen in the MRI scan CRANIOCERVICAL JUNCTION: No significant abnormality. VASCULAR FLOW-VOIDS: Normal flow signal in the right vertebral artery, basilar artery, carotid arteri es at the level of siphon ORBITS: No significant abnormality of visualized orbits. SINUSES / MASTOIDS: Mucosal thickening in the left maxillary sinus, left frontal sinus ADDITIONAL FINDINGS: Left cervical internal carotid artery intravascular stent extending up to the C1 level IMPRESSION: 1. Subacute border zone ischemic changes in the left frontal lobe and left centrum semiovale ; focal areas of subacute ischemia in the left precentral gyrus and left superior frontal gyrus Signer Name: Juan Manuel Britton MD Signed: 06/26/2022 10:16 AM Workstation Name: [email or web address]
[2022-06-26] MEDS ORDERED: SODIUM CHLORIDE 0.9% 1000 ML 1,000 ML IV ONE ×3 (10:45→17:58)
[2022-06-26] MEDS: SENNOSIDES 8.6 MG TAB PO SCH ×2 (11:00→21:21)
[2022-06-26] MEDS: TAMSULOSIN 0.4 MG CAP PO SCH (11:00)
[2022-06-26] MEDS: ASPIRIN 325 MG TAB PO SCH (11:00)
--- NOTE | 2022-06-26 11:11 | Progress Note ---
Assessment and Plan 82 y/o male with prior history of stroke, presents with several days of stroke like symptoms that have progressed, and found to be hypotensive. 1. Cards-despite depressed EF, patient still on room air with good sats despite volume challenges yesterday. Likely needs more. Will give at least 2 more liter boluses today and reassess. Given new information of CHF, doubt patient's blood pressure is normal at baseline. Will change parameters for weaning pressors to maps of 55 or greater as long as mental state does not become compromised. Follow up cards recs for today. 2. Renal- bump in Cr to 1.5 from 1.3 on yesterday. Still with urine output. Would like to give more volume. Will send urine lytes as well. If continues to worsen, renal ultrasound and renal consult. 3. neuro- follow up MRI results from today and any new neuro recs 4. Prophylaxis 5. Guarded prognosis CCT 31 minutes. Subjective Date of service: 06/26/22 Interval history: Had MRI this morning. Remains on room air. echo shows and EF of 35-40. Still on pressors with levophed at 2. Also on Midodrine therapy as well. Objective - Constitutional Vitals: Vital Signs - 12hr 06/25/22 06/25/22 06/25/22 23:10 23:15 23:20 Temperature 99.3 F Pulse Rate 77 73 Respiratory 20 40 H Rate Blood Pressure 79/39 81/47 O2 Sat by Pulse 98 99 Oximetry 06/25/22 06/25/22 06/25/22 23:30 23:40 23:50 Temperature Pulse Rate 68 79 69 Respiratory 30 H 23 25 H Rate Blood Pressure 80/46 83/45 82/46 O2 Sat by Pulse 100 97 98 Oximetry 06/26/22 06/26/22 06/26/22 00:00 00:11 00:21 Temperature Pulse Rate 73 76 61 Respiratory 39 H 31 H 18 Rate Blood Pressure 89/43 84/47 84/53 O2 Sat by Pulse 100 100 Oximetry 06/26/22 06/26/22 06/26/22 00:31 00:41 00:51 Temperature Pulse Rate 77 74 75 Respiratory 17 16 29 H Rate Blood Pressure 85/48 85/48 83/44 O2 Sat by Pulse 100 96 99 Oximetry 06/26/22 06/26/22 06/26/22 01:00 01:10 01:11 Temperature Pulse Rate 118 H 113 H Respiratory 30 H 18 34 H Rate Blood Pressure 167/96 109/50 O2 Sat by Pulse 97 98 99 Oximetry 06/26/22 06/26/22 06/26/22 01:20 01:31 01:40 Temperature Pulse Rate 100 H 88 85 Respiratory 30 H 30 H 30 H Rate Blood Pressure 84/48 84/42 85/58 O2 Sat by Pulse 98 98 96 Oximetry 06/26/22 06/26/22 06/26/22 01:51 02:00 02:10 Temperature Pulse Rate 84 81 85 Respiratory 35 H 34 H 32 H Rate Blood Pressure 82/44 77/46 90/54 O2 Sat by Pulse 96 97 95 Oximetry 06/26/22 06/26/22 06/26/22 02:20 02:30 02:40 Temperature Pulse Rate 88 99 H 100 H Respiratory 19 25 H 28 H Rate Blood Pressure 112/67 128/65 125/68 O2 Sat by Pulse 95 96 96 Oximetry 06/26/22 06/26/22 06/26/22 02:51 03:01 03:10 Temperature Pulse Rate 110 H 108 H 103 H Respiratory 40 H 37 H 18 Rate Blood Pressure 115/64 110/56 O2 Sat by Pulse 93 93 98 Oximetry 06/26/22 06/26/22 06/26/22 03:11 03:21 03:31 Temperature Pulse Rate 103 H 98 H 103 H Respiratory 32 H 26 H 35 H Rate Blood Pressure 111/72 115/65 110/54 O2 Sat by Pulse 96 92 98 Oximetry 06/26/22 06/26/22 06/26/22 03:40 03:50 04:00 Temperature Pulse Rate 96 H 98 H 94 H Respiratory 30 H 37 H 30 H Rate Blood Pressure 107/65 119/62 105/55 O2 Sat by Pulse 99 98 99 Oximetry 06/26/22 06/26/22 06/26/22 04:10 04:20 04:30 Temperature Pulse Rate 95 H 90 94 H Respiratory 29 H 21 33 H Rate Blood Pressure 107/63 108/61 105/59 O2 Sat by Pulse 97 97 97 Oximetry 06/26/22 06/26/22 06/26/22 04:40 04:51 05:00 Temperature 97.8 F Pulse Rate 98 H 102 H Respiratory 38 H 29 H Rate Blood Pressure 111/63 96/59 O2 Sat by Pulse 97 96 Oximetry 06/26/22 06/26/22 06/26/22 05:01 05:10 05:21 Temperature Pulse Rate 89 105 H 94 H Respiratory 32 H 31 H 31 H Rate Blood Pressure 113/62 105/63 110/69 O2 Sat by Pulse 96 96 97 Oximetry 06/26/22 06/26/22 06/26/22 05:31 05:41 05:51 Temperature Pulse Rate 86 90 87 Respiratory 23 24 27 H Rate Blood Pressure 115/53 113/66 117/69 O2 Sat by Pulse 97 97 95 Oximetry 06/26/22 06/26/22 06/26/22 06:01 06:10 06:11 Temperature Pulse Rate 97 H 84 75 Respiratory 12 18 28 H Rate Blood Pressure 116/61 112/58 O2 Sat by Pulse 97 98 95 Oximetry 06/26/22 06/26/22 06/26/22 06:21 06:31 06:41 Temperature Pulse Rate 88 87 110 H Respiratory 21 31 H 24 Rate Blood Pressure 105/59 109/60 111/54 O2 Sat by Pulse 94 95 97 Oximetry 06/26/22 06/26/22 06/26/22 06:51 07:01 07:09 Temperature 99.5 F Pulse Rate 86 84 Respiratory 32 H 37 H Rate Blood Pressure 81/44 88/50 O2 Sat by Pulse 95 94 Oximetry 06/26/22 06/26/22 06/26/22 07:11 07:21 07:31 Temperature Pulse Rate 89 86 87 Respiratory 30 H 39 H 37 H Rate Blood Pressure 106/63 90/61 102/66 O2 Sat by Pulse 95 86 95 Oximetry 06/26/22 06/26/22 06/26/22 07:40 07:51 08:00 Temperature Pulse Rate 83 79 75 Respiratory 28 H 20 32 H Rate Blood Pressure 101/62 115/60 107/58 O2 Sat by Pulse 97 97 96 Oximetry 06/26/22 06/26/22 06/26/22 08:10 08:20 08:30 Temperature Pulse Rate 84 79 83 Respiratory 28 H 29 H 28 H Rate Blood Pressure 104/68 109/66 104/60 O2 Sat by Pulse 98 97 97 Oximetry 06/26/22 06/26/22 06/26/22 08:41 09:55 10:01 Temperature Pulse Rate 96 H 100 H 92 H Respiratory 38 H 16 22 Rate Blood Pressure 122/59 109/63 109/63 O2 Sat by Pulse 98 Oximetry 06/26/22 06/26/22 06/26/22 10:11 10:21 10:31 Temperature Pulse Rate 102 H 98 H 93 H Respiratory 30 H 26 H 28 H Rate Blood Pressure 109/63 109/63 109/63 O2 Sat by Pulse 100 98 Oximetry 06/26/22 06/26/22 10:41 10:51 Temperature Pulse Rate 78 72 Respiratory 36 H 29 H Rate Blood Pressure 109/63 109/63 O2 Sat by Pulse 98 98 Oximetry - Labs CBC & Chem 7: 06/26/22 04:24 06/26/22 04:24 Labs: Abnormal lab results 06/25/22 06/26/22 06/26/22 Range/Units 17:10 04:24 04:24 WBC 11.7 H (4.5-11.0) K/mm3 MCV 82 L (84-94) fl MCH 26 L (28-32) pg RDW 16.9 H (13.2-15.2) % Lymph % (Auto) 11.8 L (13.4-35.0) % Traill % (Auto) 10.7 H (0.0-7.3) % Traill # (Auto) 1.3 H (0.0-0.8) K/mm3 Seg Neutrophils % 77.3 H (40.0-70.0) % Seg Neutrophils # 9.0 H (1.8-7.7) K/mm3 Sodium 133 L (137-145) mmol/L Carbon Dioxide 18 L (22-30) mmol/L Creatinine 1.5 H (0.8-1.3) mg/dL Glucose 109 H (75-100) mg/dL POC Glucose (70-105) mg/dL Hemoglobin A1c (4-6) % Lactic Acid 2.50 H* (0.7-2.0) mmol/L Calcium 7.8 L (8.4-10.2) mg/dL AST 141 H (5-40) units/L Alkaline Phosphatase 374 H (35-129) units/L Total Protein 5.8 L (6.3-8.2) g/dL Albumin 2.8 L (3.9-5) g/dL 06/26/22 06/26/22 Range/Units 04:24 07:20 WBC (4.5-11.0) K/mm3 MCV (84-94) fl MCH (28-32) pg RDW (13.2-15.2) % Lymph % (Auto) (13.4-35.0) % Traill % (Auto) (0.0-7.3) % Traill # (Auto) (0.0-0.8) K/mm3 Seg Neutrophils % (40.0-70.0) % Seg Neutrophils # (1.8-7.7) K/mm3 Sodium (137-145) mmol/L Carbon Dioxide (22-30) mmol/L Creatinine (0.8-1.3) mg/dL Glucose (75-100) mg/dL POC Glucose 109 H (70-105) mg/dL Hemoglobin A1c 6.2 H (4-6) % Lactic Acid (0.7-2.0) mmol/L Calcium (8.4-10.2) mg/dL AST (5-40) units/L Alkaline Phosphatase (35-129) units/L Total Protein (6.3-8.2) g/dL Albumin (3.9-5) g/dL Medications & Allergies - Medications Allergies/Adverse Reactions: Allergies No Known Allergies Allergy (Verified 06/25/22 08:03) Home Medications: Home Medications Medication Instructions Recorded Confirmed Last Taken Type Bicalutamide [Casodex] 50 mg PO DAILY 06/25/22 06/25/22 06/24/22 History Simvastatin 20 mg PO DAILY 06/25/22 06/25/22 06/24/22 History Tamsulosin [Flomax] 0.4 mg PO QDAY 06/25/22 06/25/22 06/24/22 History lisinopriL [Lisinopril] 20 mg PO DAILY 06/25/22 06/25/22 06/24/22 History Active Medications: Generic Name Dose Route Start Last Admin Trade Name Freq PRN Reason Stop Dose Admin Acetaminophen 650 mg 06/25/22 11:23 Acetaminophen 325 Mg Tab PO Q4H PRN Pain, Mild (1-3) Albuterol 2.5 mg 06/25/22 11:23 Albuterol 2.5 Mg/3 Ml Nebu IH Q3HRT PRN Shortness Of Breath Artificial Tears 2 drops 06/25/22 22:00 06/26/22 07:24 Hypromellose 0.5% Ophth Soln 15 Ml OU 2 drops Q8HR R[facility]Z Administration Aspirin 325 mg 06/26/22 10:00 Aspirin 325 Mg Tab PO QDAY [facility] Atorvastatin Calcium 40 mg 06/25/22 22:00 06/25/22 21:38 Atorvastatin 40 Mg Tab PO 40 mg QHS RAMEZ Administration Bisacodyl 10 mg 06/25/22 11:23 Bisacodyl 10 Mg Rect Supp [place] QDAY PRN Constipation Heparin Sodium (Porcine) 5,000 unit 06/25/22 14:00 06/26/22 07:25 Heparin 5,000 Unit/1 Ml Vial SUB-Q 5,000 unit Q8HR [facility] Administration Sodium Chloride 1,000 mls @ 42 mls/hr 06/25/22 18:00 06/25/22 19:09 Nacl 0.9% 1000 Ml IV 42 mls/hr DIRECT [facility] Administration NORepinephrine/NS 8 MG-250 ML 8 mg in 250 mls @ 3.75 mls/hr 06/25/22 23:06 06/26/22 01:59 Norepinephrine/Ns 8 Mg-250 Ml (Double Conc) IV 2 mcg/min TITRATE RAMEZ 3.75 mls/hr Titration Protocol 2 MCG/MIN Ceftriaxone Sodium 1 gm in 50 mls @ 100 mls/hr 06/26/22 08:00 Rocephin/Ns 1 Gm/50 Ml IV Q24H [facility] Protocol Sodium Chloride 1,000 mls @ 999 mls/hr 06/26/22 10:45 Nacl 0.9% 1000 Ml IV 06/26/22 11:45 BOLUS ONE Latanoprost 1 drops 06/26/22 22:00 Latanoprost 0.005% Ophth Soln 2.5 Ml OU BID [facility] Magnesium Hydroxide 30 ml 06/25/22 11:23 Magnesium Hydroxide (Mom) Oral Liqd Udc PO Q4H PRN Constipation Metoclopramide HCl 10 mg 06/25/22 11:23 Metoclopramide 10 Mg Tab PO Q6H PRN Nausea And Vomiting Midodrine 10 mg 06/25/22 16:16 06/25/22 16:42 Midodrine 5 Mg Tab PO 10 mg TID@0800,1200,1600 [facility] Administration Naloxone HCl 0.1 mg 06/25/22 11:23 Naloxone 0.4 Mg/1 Ml Inj IV Q2MIN PRN Res Rate </= 8 or 02 SAT < 92% Ondansetron HCl 4 mg 06/25/22 11:23 Ondansetron 4 Mg/2 Ml Inj IV Q8H PRN Nausea And Vomiting Oxycodone/Acetaminophen 1 tab 06/25/22 11:23 Oxycodone /Acetaminophen 5-325mg Tab PO Q6H PRN Pain, Moderate (4-6) Promethazine HCl 25 mg 06/25/22 11:23 Promethazine 25 Mg Rect Supp [place] Q6H PRN Nausea And Vomiting Senna 8.6 mg 06/25/22 22:00 06/25/22 21:38 Sennosides 8.6 Mg Tab PO 8.6 mg BID R[facility]Z Administration Sodium Chloride 10 ml 06/25/22 22:00 06/25/22 21:38 Sodium Chloride 0.9% 10 Ml Flush Syringe IV 10 ml BID [facility] Administration Sodium Chloride 10 ml 06/25/22 11:23 Sodium Chloride 0.9% 10 Ml Flush Syringe IV PRN PRN LINE FLUSH Tamsulosin HCl 0.4 mg 06/26/22 10:00 Tamsulosin 0.4 Mg Cap PO QDAY [facility]
--- NOTE | 2022-06-26 11:16 | Consultation ---
History of Present Illness Consult date: 06/26/22 Consult reason: atrial fibrillation History of present illness: Patient is an 82-year-old man who was brought to the emergency room with altered mental status, undergoing further evaluation by internal medicine and neurology for a possible stroke. There is no chest pain, no shortness of breath, no cardiac symptoms are reported. Cardiology is consulted for the finding of an abnormal ECG done on presentation. 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 We do not have old ECGs for comparison. His family member who is at the bedside states that he received his usual in [place], where he lived until moving to [place] earlier this year. Since his move to [place], he has seen a primary care doctor Dr. Misael Parkinson in [place], but has not seen a financial aid advisor. She is unaware of any history of atrial fibrillation or any specific cardiac history. She is unaware of any previous or ongoing therapy with oral anticoagulants. Patient is currently in the ICU, awake, comfortable in no acute distress. Past History Past Medical History: hypertension, stroke (Over 13 years ago), other (stage IV prostate cancer, arthritis, glaucoma) Past Surgical History: Other (pt cannot provide hx;) Social history: no significant social history, full code, other ( recently ). denies: smoking, alcohol abuse, prescription drug abuse, IV drug use Family history: no significant family history Medications and Allergies Allergies Allergy/AdvReac Type Severity Reaction Status Date / Time No Known Allergies Allergy Verified 06/25/22 08:03 Home Medications Medication Instructions Recorded Confirmed Last Taken Type Bicalutamide [Casodex] 50 mg PO DAILY 06/25/22 06/25/22 06/24/22 History Simvastatin 20 mg PO DAILY 06/25/22 06/25/22 06/24/22 History Tamsulosin [Flomax] 0.4 mg PO QDAY 06/25/22 06/25/22 06/24/22 History lisinopriL [Lisinopril] 20 mg PO DAILY 06/25/22 06/25/22 06/24/22 History Active Meds: Active Medications Acetaminophen (Acetaminophen 325 Mg Tab) 650 mg PO Q4H PRN PRN Reason: Pain, Mild (1-3) Albuterol (Albuterol 2.5 Mg/3 Ml Nebu) 2.5 mg IH Q3HRT PRN PRN Reason: Shortness Of Breath Artificial Tears (Hypromellose 0.5% Ophth Soln 15 Ml) 2 drops OU Q8HR RAMEZ Last Admin: 06/26/22 07:24 Dose: 2 drops Aspirin (Aspirin 325 Mg Tab) 325 mg PO QDAY RAMEZ Atorvastatin Calcium (Atorvastatin 40 Mg Tab) 40 mg PO QHS RAMEZ Last Admin: 06/25/22 21:38 Dose: 40 mg Bisacodyl (Bisacodyl 10 Mg Rect Supp) 10 mg [place] QDAY PRN PRN Reason: Constipation Heparin Sodium (Porcine) (Heparin 5,000 Unit/1 Ml Vial) 5,000 unit SUB-Q Q8HR RAMEZ Last Admin: 06/26/22 07:25 Dose: 5,000 unit Sodium Chloride (Nacl 0.9% 1000 Ml) 1,000 mls @ 42 mls/hr IV DIRECT RAMEZ Last Admin: 06/25/22 19:09 Dose: 42 mls/hr NORepinephrine/NS 8 MG-250 ML (Norepinephrine/Ns 8 Mg-250 Ml (Double Conc)) 8 mg in 250 mls @ 3.75 mls/hr IV TITRATE RAMEZ; Protocol Last Titration: 06/26/22 01:59 Dose: 2 mcg/min, 3.75 mls/hr Ceftriaxone Sodium (Rocephin/Ns 1 Gm/50 Ml) 1 gm in 50 mls @ 100 mls/hr IV Q24H [facility]; Protocol Sodium Chloride (Nacl 0.9% 1000 Ml) 1,000 mls @ 999 mls/hr IV BOLUS ONE Stop: 06/26/22 11:45 Latanoprost (Latanoprost 0.005% Ophth Soln 2.5 Ml) 1 drops OU BID RAMEZ Magnesium Hydroxide (Magnesium Hydroxide (Mom) Oral Liqd Udc) 30 ml PO Q4H PRN PRN Reason: Constipation Metoclopramide HCl (Metoclopramide 10 Mg Tab) 10 mg PO Q6H PRN PRN Reason: Nausea And Vomiting Midodrine (Midodrine 5 Mg Tab) 10 mg PO TID@0800,1200,1600 [facility] Last Admin: 06/25/22 16:42 Dose: 10 mg Naloxone HCl (Naloxone 0.4 Mg/1 Ml Inj) 0.1 mg IV Q2MIN PRN PRN Reason: Res Rate </= 8 or 02 SAT < 92% Ondansetron HCl (Ondansetron 4 Mg/2 Ml Inj) 4 mg IV Q8H PRN PRN Reason: Nausea And Vomiting Oxycodone/Acetaminophen (Oxycodone /Acetaminophen 5-325mg Tab) 1 tab PO Q6H PRN PRN Reason: Pain, Moderate (4-6) Promethazine HCl (Promethazine 25 Mg Rect Supp) 25 mg [place] Q6H PRN PRN Reason: Nausea And Vomiting Senna (Sennosides 8.6 Mg Tab) 8.6 mg PO BID [facility] Last Admin: 06/25/22 21:38 Dose: 8.6 mg Sodium Chloride (Sodium Chloride 0.9% 10 Ml Flush Syringe) 10 ml IV BID [facility] Last Admin: 06/25/22 21:38 Dose: 10 ml Sodium Chloride (Sodium Chloride 0.9% 10 Ml Flush Syringe) 10 ml IV PRN PRN PRN Reason: LINE FLUSH Tamsulosin HCl (Tamsulosin 0.4 Mg Cap) 0.4 mg PO QDAY [facility] Review of Systems Cardiovascular: no chest pain, no orthopnea, no palpitations, no rapid/irregular heart beat, no edema, no syncope, no lightheadedness, no shortness of breath Physical Examination Vital Signs Temp 100.2 F H 06/25/22 07:59 General appearance: no acute distress HEENT: Positive: PERRL Neck: Positive: neck supple Cardiac: Positive: irregularly irregular Lungs: Positive: Decreased Breath Sounds Neuro: Positive: Weakness (Generalized lethargy, nonfocal) Abdomen: Positive: Soft Male genitourinary: Positive: deferred Skin: Positive: Clear Extremities: Absent: edema Results 06/26/22 04:24 06/26/22 04:24 Cardiac Enzymes 06/26/22 Range/Units 04:24 AST 141 H (5-40) units/L Lipids 06/26/22 Range/Units 04:24 Triglycerides 52 (2-149) mg/dL Cholesterol 107 (50-199) mg/dL HDL Cholesterol 42 (40-59) mg/dL Cholesterol/HDL Ratio 2.54 % CBC 06/26/22 Range/Units 04:24 WBC 11.7 H (4.5-11.0) K/mm3 RBC 4.70 (3.65-5.03) M/mm3 Hgb 12.3 (11.8-15.2) gm/dl Hct 38.6 (35.5-45.6) % Plt Count 218 (140-440) K/mm3 Lymph # (Auto) 1.4 (1.2-5.4) K/mm3 [place] # (Auto) 1.3 H (0.0-0.8) K/mm3 Eos # (Auto) 0.0 (0.0-0.4) K/mm3 Baso # (Auto) 0.0 (0.0-0.1) K/mm3 Comprehensive Metabolic Panel 06/26/22 Range/Units 04:24 Sodium 133 L (137-145) mmol/L Potassium 4.2 (3.6-5.0) mmol/L Chloride 105.0 (98-107) mmol/L Carbon Dioxide 18 L (22-30) mmol/L BUN 20 (9-20) mg/dL Creatinine 1.5 H (0.8-1.3) mg/dL Glucose 109 H (75-100) mg/dL Calcium 7.8 L (8.4-10.2) mg/dL AST 141 H (5-40) units/L ALT 31 (7-56) units/L Alkaline Phosphatase 374 H (35-129) units/L Total Protein 5.8 L (6.3-8.2) g/dL Albumin 2.8 L (3.9-5) g/dL EKG interpretations - Telemetry EKG Rhythm: Atrial Fibrillation (With left anterior fascicular block and right bundle branch block) Assessment and Plan - Patient Problems (1) Atrial fibrillation Current Visit: Yes Status: Acute Plan to address problem: 82-year-old man who presents with altered mental status and is undergoing n eurological work-up for possible CVA, presented with abnormal ECG that shows atrial fibrillation, well-controlled ventricular rate, unknown chronicity. 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 With regards to management of atrial fibrillation, he will ultimately benefit from low-dose oral anticoagulation when his neurological status permits. There is no indication for AV hector blocking agents, patient is rate controlled at baseline. We have requested a copy of his previous ECG from his primary care doctor's office, to assess chronicity of his atrial fibrillation and bundle branch block abnormality on his ECG.
--- NOTE | 2022-06-26 15:12 | Progress Note ---
Assessment and Plan Assessment and plan: his is a 82-year-old male with CVA (2008), stage IV prostate cancer admitted with hypotension, A. fib RVR and CVA Neuro: Acute CVA -Neurology consulted, appreciate recommendations -Initial CT head radiology read: Age-related atrophy and microvascular ischemic changes, large areas of encephalomalacia in multiple vascular distributions secondary to multifocal remote cortical infarctions, no acute intracranial normality -MRI brain radiology read: Subacute border zone ischemic changes in the left frontal lobe and left centrum semiovale, focal areas of subacute ischemia in the left precentral gyrus and left superior frontoparietal -MRA head/neck pending -Lipitor, aspirin -PT/OT/ST consulted, recommendations -Echocardiogram shows no PFO -Reorientation as needed -Maintain sleep-wake cycle -Aspiration/seizure precautions -As needed analgesia -Neurochecks per protocol Cardiac: Atrial fibrillation, hypotension, h/o HFrEF -Cardiology and CCM consulted, appreciate recommendations -Per cardiology: no indication for AV hector blockers -Blood pressure monitoring per protocol -Midodrine 3 times daily -Vasopressor support with levophed -MAP goal greater than 55 -Given 2 LNS bolus -Echocardiogram shows four-chamber cardiomyopathy, LVEF 35 to 40%, negative contrast bubble study Respiratory: NAD -Supplemental oxygen as needed -Pulmonary hygiene -SPO2 monitoring GI: Moderate protein calorie malnutrition -24 hours -190 mL -PPI -ST evaluation pending -passed bedside swallow eval->regular diet -BR: colace : Hyponatremia, metabolic acidosis, acute kidney injury likely secondary to vasomotor nephropathy given hypotension -Monitor intake and output -Renally dose medications -Avoid nephrotoxic medications -Urine lytes pending -Trend BMP ID: Lactic acidosis -f/u blood culture -06/25 BC NGTD -Monitor WBC and temperature curve Endo: NAD -Avoid hypoglycemia -Hemaglobin A1C 6.2 -Accuchecks q 4 Heme: Leukocytosis -Trend CBC -Transfuse hemoglobin less than 7 -SCDs to BLE while in bed Oncology: Stage IV Prostate -Recently started on bicalutamide -Hem/Onc consulted, appreciate recommendations -Uric acid pending -Continue supportive care The high probability of a clinically significant, sudden or life threatening deterioration of the [neuro/cardio] system(s) required my full and direct attention, intervention and personal management. The aggregate critical care time was [90] minutes. This time is in addition to time spent performing reported procedures but includes the following: [x] Data Review and interpretation [x] Patient assessment and monitoring of vital signs [x] Documentation [x] Medication orders and management Disposition Plan: icu Total Time Spent with Patient (Minutes): 90 History Interval history: This is 82-year-old male with CVA (13 years ago), glaucoma, arthritis, stage IV prostate cancer currently started on bicalutamide 3 days ago presented to emergency department on 06/25 after having right-sided weakness with spasms, per family expressive aphasia, and confusion. Code stroke was called and ECG showed A. fib with bundle branch block and was noted to have hypotension. Initial CT showed previous stroke with no acute pathology. Patient was admitted to the hospitalist service with consults to telemetry neurology, CCM and cardiology for A. fib with RVR and to rule out CVA. Hospital course to date: 06/26: Patient had a MRI brain which showed subacute ischemia and MRA head/neck was obtained due to increasing renal function. Echocardiogram with bubble study pending. For hypertension patient was started on midodrine yesterday evening and given a total of 1500 mL normal saline bolus overnight. Today we administered 2 L normal saline bolus and his remains on Levophed at 2. PICC line ordered. Extensive conversation at bedside with daughter. T Hospitalist Physical - Constitutional Vitals: Temp Pulse Resp BP Pulse Ox 97.9 F 72 29 H 109/63 98 06/26/22 11:36 06/26/22 10:51 06/26/22 10:51 06/26/22 10:51 06/26/22 10:51 General appearance: Present: no acute distress - EENT Eyes: Present: PERRL, EOM intact ENT: poor dentition - Neck Neck: Present: normal ROM - Respiratory Respiratory effort: normal Respiratory: bilateral: CTA - Cardiovascular Rhythm: regular Heart Sounds: Present: S1 & S2. Absent: systolic murmur, diastolic murmur - Extremities Extremities: no ischemia, pulses intact, pulses symmetrical, No edema, normal temperature, normal color Peripheral Pulses: within normal limits - Abdominal General gastrointestinal: soft, non-tender, non-distended, normal bowel sounds - Integumentary Integumentary: Present: warm, dry - Psychiatric Psychiatric: cooperative - Neurologic Neurologic: moves all extremities - Allied Health Allied health notes reviewed: nursing, PT, ST, OT, social work Results - Labs CBC & Chem 7: 06/26/22 04:24 06/26/22 04:24 Labs: Laboratory Last Values WBC 11.7 K/mm3 (4.5-11.0) H 06/26/22 04:24 RBC 4.70 M/mm3 (3.65-5.03) 06/26/22 04:24 Hgb 12.3 gm/dl (11.8-15.2) 06/26/22 04:24 Hct 38.6 % (35.5-45.6) 06/26/22 04:24 MCV 82 fl (84-94) L 06/26/22 04:24 MCH 26 pg (28-32) L 06/26/22 04:24 MCHC 32 % (32-34) 06/26/22 04:24 RDW 16.9 % (13.2-15.2) H 06/26/22 04:24 Plt Count 218 K/mm3 (140-440) 06/26/22 04:24 Lymph % (Auto) 11.8 % (13.4-35.0) L 06/26/22 04:24 [place] % (Auto) 10.7 % (0.0-7.3) H 06/26/22 04:24 Eos % (Auto) 0.0 % (0.0-4.3) 06/26/22 04:24 Baso % (Auto) 0.2 % (0.0-1.8) 06/26/22 04:24 Lymph # (Auto) 1.4 K/mm3 (1.2-5.4) 06/26/22 04:24 [place] # (Auto) 1.3 K/mm3 (0.0-0.8) H 06/26/22 04:24 Eos # (Auto) 0.0 K/mm3 (0.0-0.4) 06/26/22 04:24 Baso # (Auto) 0.0 K/mm3 (0.0-0.1) 06/26/22 04:24 Seg Neutrophils % 77.3 % (40.0-70.0) H 06/26/22 04:24 Seg Neutrophils # 9.0 K/mm3 (1.8-7.7) H 06/26/22 04:24 PT 17.4 Sec. (12.2-14.9) H 06/25/22 08:23 INR 1.27 (0.87-1.13) H 06/25/22 08:23 APTT 34.3 Sec. (24.2-36.6) 06/25/22 08:23 Sodium 133 mmol/L (137-145) L 06/26/22 04:24 Potassium 4.2 mmol/L (3.6-5.0) 06/26/22 04:24 Chloride 105.0 mmol/L (98-107) 06/26/22 04:24 Carbon Dioxide 18 mmol/L (22-30) L 06/26/22 04:24 Anion Gap 14 mmol/L 06/26/22 04:24 BUN 20 mg/dL (9-20) 06/26/22 04:24 Creatinine 1.5 mg/dL (0.8-1.3) H 06/26/22 04:24 Estimated GFR 54 ml/min 06/26/22 04:24 BUN/Creatinine Ratio 13 % 06/26/22 04:24 Glucose 109 mg/dL (75-100) H 06/26/22 04:24 POC Glucose 109 mg/dL (70-105) H 06/26/22 07:20 Hemoglobin A1c 6.2 % (4-6) H 06/26/22 04:24 Lactic Acid 2.50 mmol/L (0.7-2.0) H* 06/25/22 17:10 Calcium 7.8 mg/dL (8.4-10.2) L 06/26/22 04:24 Magnesium 1.70 mg/dL (1.7-2.3) 06/25/22 08:23 Total Bilirubin 1.20 mg/dL (0.1-1.2) 06/26/22 04:24 AST 141 units/L (5-40) H 06/26/22 04:24 ALT 31 units/L (7-56) 06/26/22 04:24 Alkaline Phosphatase 374 units/L (35-129) H 06/26/22 04:24 Ammonia 28.0 umol/L (25-60) 06/25/22 17:10 Total Protein 5.8 g/dL (6.3-8.2) L 06/26/22 04:24 Albumin 2.8 g/dL (3.9-5) L 06/26/22 04:24 Albumin/Globulin Ratio 0.9 % 06/26/22 04:24 Triglycerides 52 mg/dL (2-149) 06/26/22 04:24 Cholesterol 107 mg/dL (50-199) 06/26/22 04:24 LDL Cholesterol Direct 64 mg/dL (50-130) 06/26/22 04:24 HDL Cholesterol 42 mg/dL (40-59) 06/26/22 04:24 Cholesterol/HDL Ratio 2.54 % 06/26/22 04:24 Vitamin B12 582.9 pg/mL (211-911) 06/25/22 17:10 TSH 0.805 mlU/mL (0.270-4.200) 06/25/22 17:10 Urine Color [place] (Yellow) 06/25/22 09:24 Urine Turbidity Clear (Clear) 06/25/22 09:24 Urine pH 6.0 (5.0-7.0) 06/25/22 09:24 Ur Specific [place] 1.020 (1.003-1.030) 06/25/22 09:24 Urine Protein <30 mg dl mg/dL (Negative) 06/25/22 09:24 Urine Glucose (UA) Negative mg/dL (Negative) 06/25/22 09:24 Urine Ketones Negative mg/dL (Negative) 06/25/22 09:24 Urine Blood Negative (Negative) 06/25/22 09:24 Urine Nitrite Negative (Negative) 06/25/22 09:24 Ur Reducing Substances Not Reportable 06/25/22 09:24 Urine Bilirubin Negative (Negative) 06/25/22 09:24 Urine Ictotest Not Reportable 06/25/22 09:24 Urine Urobilinogen < 2.0 mg/dL (<2.0) 06/25/22 09:24 Ur Leukocyte Esterase Trace (Negative) 06/25/22 09:24 Urine WBC (Auto) 5.0 /HPF (0.0-6.0) 06/25/22 09:24 Urine RBC (Auto) 11.0 /HPF (0.0-6.0) 06/25/22 09:24 U Epithel Cells (Auto) 2.0 /HPF (0-13.0) 06/25/22 09:24 Urine Mucus Few /HPF 06/25/22 09:24 Urine Opiates Screen Presumptive negative 06/25/22 14:05 Urine Methadone Screen Presumptive negative 06/25/22 14:05 Ur Barbiturates Screen Presumptive negative 06/25/22 14:05 Ur Phencyclidine Scrn Presumptive negative 06/25/22 14:05 Ur Amphetamines Screen Presumptive negative 06/25/22 14:05 U Benzodiazepines Scrn Presumptive negative 06/25/22 14:05 Urine Cocaine Screen Presumptive negative 06/25/22 14:05 U Marijuana (THC) Screen Presumptive negative 06/25/22 14:05 Drugs of Abuse Note Disclamer 06/25/22 14:05 Microbiology: Microbiology 06/25/22 08:48 Peripheral/Venous Blood Culture - Preliminary NO GROWTH AFTER 24 HOURS 06/25/22 08:48 Peripheral/Venous Blood Culture - Preliminary NO GROWTH AFTER 24 HOURS Javier/IV: Voiding Method Indwelling Catheter Active Medications - Current Medications Current Medications: Generic Name Dose Route Start Last Admin Trade Name Freq PRN Reason Stop Dose Admin Acetaminophen 650 mg 06/25/22 11:23 Acetaminophen 325 Mg Tab PO Q4H PRN Pain, Mild (1-3) Albuterol 2.5 mg 06/25/22 11:23 Albuterol 2.5 Mg/3 Ml Nebu IH Q3HRT PRN Shortness Of Breath Artificial Tears 2 drops 06/25/22 22:00 06/26/22 07:24 Hypromellose 0.5% Ophth Soln 15 Ml OU 2 drops Q8HR RAMEZ Administration Aspirin 325 mg 06/26/22 10:00 06/26/22 11:00 Aspirin 325 Mg Tab PO 325 mg QDAY RAMEZ Administration Atorvastatin Calcium 40 mg 06/25/22 22:00 06/25/22 21:38 Atorvastatin 40 Mg Tab PO 40 mg QHS RAMEZ Administration Bisacodyl 10 mg 06/25/22 11:23 Bisacodyl 10 Mg Rect Supp [place] QDAY PRN Constipation Docusate Sodium 100 mg 06/26/22 22:00 Docusate Sodium 100 Mg Cap PO BID RAMEZ Heparin Sodium (Porcine) 5,000 unit 06/25/22 14:00 06/26/22 07:25 Heparin 5,000 Unit/1 Ml Vial SUB-Q 5,000 unit Q8HR RAMEZ Administration Sodium Chloride 1,000 mls @ 42 mls/hr 06/25/22 18:00 06/25/22 19:09 Nacl 0.9% 1000 Ml IV 42 mls/hr DIRECT RAMEZ Administration NORepinephrine/NS 8 MG-250 ML 8 mg in 250 mls @ 3.75 mls/hr 06/25/22 23:06 06/26/22 01:59 Norepinephrine/Ns 8 Mg-250 Ml (Double Conc) IV 2 mcg/min TITRATE RAMEZ 3.75 mls/hr Titration Protocol 2 MCG/MIN Ceftriaxone Sodium 1 gm in 50 mls @ 100 mls/hr 06/26/22 08:00 06/26/22 09:00 Rocephin/Ns 1 Gm/50 Ml IV 100 mls/hr Q24H RAMEZ Administration Protocol Latanoprost 1 drops 06/26/22 22:00 Latanoprost 0.005% Ophth Soln 2.5 Ml OU BID RAMEZ Magnesium Hydroxide 30 ml 06/25/22 11:23 Magnesium Hydroxide (Mom) Oral Liqd Udc PO Q4H PRN Constipation Metoclopramide HCl 10 mg 06/25/22 11:23 Metoclopramide 10 Mg Tab PO Q6H PRN Nausea And Vomiting Midodrine 10 mg 06/25/22 16:16 06/26/22 09:00 Midodrine 5 Mg Tab PO 10 mg TID@0800,1200,1600 RAMEZ Administration Naloxone HCl 0.1 mg 06/25/22 11:23 Naloxone 0.4 Mg/1 Ml Inj IV Q2MIN PRN Res Rate </= 8 or 02 SAT < 92% Ondansetron HCl 4 mg 06/25/22 11:23 Ondansetron 4 Mg/2 Ml Inj IV Q8H PRN Nausea And Vomiting Oxycodone/Acetaminophen 1 tab 06/25/22 11:23 Oxycodone /Acetaminophen 5-325mg Tab PO Q6H PRN Pain, Moderate (4-6) Promethazine HCl 25 mg 06/25/22 11:23 Promethazine 25 Mg Rect Supp [place] Q6H PRN Nausea And Vomiting Senna 8.6 mg 06/25/22 22:00 06/26/22 11:00 Sennosides 8.6 Mg Tab PO Not Given BID RAMEZ Sodium Chloride 10 ml 06/25/22 22:00 06/26/22 11:00 Sodium Chloride 0.9% 10 Ml Flush Syringe IV 10 ml BID RAMEZ Administration Sodium Chloride 10 ml 06/25/22 11:23 Sodium Chloride 0.9% 10 Ml Flush Syringe IV PRN PRN LINE FLUSH Tamsulosin HCl 0.4 mg 06/26/22 10:00 06/26/22 11:00 Tamsulosin 0.4 Mg Cap PO 0.4 mg QDAY RAMEZ Administration Nutrition/Malnutrition Assess - Dietary Evaluation Nutrition/Malnutrition Findings: Nutrition Notes Start: 06/25/22 18:00 Freq: Status: Active Protocol: Document 06/25/22 18:00 HEATHER (Rec: 06/25/22 18:14 HEATHER [id number]) Nutrition Notes Need for Assessment generated from: MD Order Initial or Follow up Assessment Current Diagnosis Hypertension,Malnutrition, Stroke Other Pertinent Diagnosis Metabolic Encephalopathy & Acidosis, Atrial Fibrilation, SIRS, Prostate Can Current Diet Regular Diet (since L 06/25). Labs/Tests 06/25: Na 134, Cl 108.7, CO2 16, Ca 7.2. Pertinent Medications 06/25: Nutritionally unremarkable. Height 5 ft 11 in Weight 76.379 kg [place] Body Weight (kg) 78.18 BMI 23.5 Weight change and time frame None provided at admision. Weight Status Appropriate Subjective/Other Information RD consult for malnutrition assessment. No reports available on Pt's PO intake of meals at the time , will assess at F/U. Pt is on Room Air, O2 saturation @ 98%, according to Physical Assessment History notes. Pt shows no signs of concern for risk of malnutrition at the time, according to Physical Assessment History notes. Percent of energy/protein needs met: Prescribed Regular Diet provides for energy/protein needs (2,289 Kcal/89 g) during LOS. Burn Absent Trauma Absent GI Symptoms None Food Allergy No Skin Integrity/Comment Assessment WNL. Minimum of two criteria No Fluid Accumulation N/A Reduced Dairy Associate Strength Measurably Reduced (severe) Protein-Calorie Malnutrition N\A #1 Nutrition Diagnosis No nutrition diagnosis at this time Is patient on ventilator? No Is Patient Ambulatory and/or Out of Bed Yes REE-([facility]-ambulatory/OOB) [ [id number]] Calculation Used for Recommendations [facility] Additional Notes Protein: 1-1.2 g/Kg ABW; 76-91 g/day. Fluids: 1 ml/Kcal, or as per MD. Nutrition Intervention Change Diet Order: Continue Regular Diet. Follow-Up By: 07/02/22 Additional Comments Continue monitoring food tolerance, %PO intake of meals , and BM.
--- NOTE | 2022-06-26 19:24 | XRay Report ---
CHEST 1 VIEW 06/26/2022 6:15 PM INDICATION / CLINICAL INFORMATION: Picc placement. COMPARISON: 06/25/2022 FINDINGS: SUPPORT DEVICES: Left PICC line terminating at the cavoatrial junction. HEART / MEDIASTINUM: No significant abnormality. LUNGS / PLEURA: Mild pulmonary vascular indistinctness. No pneumothorax. ADDITIONAL FINDINGS: No significant additional findings. IMPRESSION: 1. PICC line terminating at the cavoatrial junction. 2. Mild pulmonary vascular indistinctness which may represent pulmonary edema. Signer Name: Elvin Plaza DO Signed: 06/26/2022 7:19 PM Workstation Name: [id number]
[2022-06-26] MEDS: DOCUSATE SODIUM 100 MG CAP PO SCH (21:21)
[2022-06-26 21:57] LABS: Creatinine,Urine 286.7 mg/dL (0.1-20.0)
[2022-06-26] MEDS ORDERED: LATANOPROST 0.005% OPHTH SOLN 2.5 ML OU SCH (22:00)
[2022-06-27 03:53] LABS: Hematocrit 36.2 % (35.5-45.6); Mean Corpuscular HGB Conc 33 % (32-34); Mean Corpuscular Volume 81 fl (84-94); Platelet Count 207 K/mm3 (140-440); Red Blood Count 4.48 M/mm3 (3.65-5.03); Red Cell Distribution Width 16.8 % (13.2-15.2)
[2022-06-27 04:01] LABS: Calcium 7.9 mg/dL (8.4-10.2)
[2022-06-27] MEDS: HYPROMELLOSE 0.5% OPHTH SOLN 15 ML OU SCH ×3 (05:54→21:16)
[2022-06-27] MEDS: HEPARIN 5,000 UNIT/1 ML VIAL SUB-Q SCH (05:54)
[2022-06-27] MEDS ORDERED: SODIUM CHLORIDE 0.9% 500 ML 500 ML IV ONE (08:00)
[2022-06-27] MEDS: MIDODRINE 5 MG TAB PO SCH ×3 (08:04→16:10)
[2022-06-27] MEDS: cefTRIAXone/NS 1 GM/50 ML 1 GM/50 ML BAG IV SCH (08:04)
[2022-06-27] MEDS: ASPIRIN 325 MG TAB PO SCH (09:16)
[2022-06-27] MEDS: TAMSULOSIN 0.4 MG CAP PO SCH (09:16)
[2022-06-27] MEDS: SENNOSIDES 8.6 MG TAB PO SCH ×2 (09:47→21:13)
[2022-06-27] MEDS: DOCUSATE SODIUM 100 MG CAP PO SCH ×2 (09:47→21:12)
--- NOTE | 2022-06-27 10:32 | Progress Note ---
Assessment and Plan Assessment and plan: This is a 82-year-old male with CVA (2008), stage IV prostate cancer admitted with hypotension, A. fib RVR and CVA Neuro: Acute CVA -Neurology consulted, appreciate recommendations -Initial CT head radiology read: Age-related atrophy and microvascular ischemic changes, large areas of encephalomalacia in multiple vascular distributions secondary to multifocal remote cortical infarctions, no acute intracranial normality -MRI brain radiology read: Subacute border zone ischemic changes in the left frontal lobe and left centrum semiovale, focal areas of subacute ischemia in the left precentral gyrus and left superior frontoparietal -MRA head/neck pending read -Lipitor, aspirin -PT/OT/ST consulted, recommendations -Echocardiogram shows no PFO -Reorientation as needed -Maintain sleep-wake cycle -Aspiration/seizure precautions -As needed analgesia -Neurochecks per protocol Cardiac: Atrial fibrillation, hypotension, h/o HFrEF -Cardiology and CCM consulted, appreciate recommendations -Per cardiology: no indication for AV hector blockers -Blood pressure monitoring per protocol -Midodrine 3 times daily -s/p Vasopressor support with levophed -Echocardiogram shows four-chamber cardiomyopathy, LVEF 35 to 40%, negative contrast bubble study Respiratory: NAD -Supplemental oxygen as needed -Pulmonary hygiene -SPO2 monitoring GI: Moderate protein calorie malnutrition -24 hours -256 mL -PPI -ST evaluation cleared for pureed diet with thins -Passed bedside swallow eval -BR: colace : Metabolic acidosis, acute kidney injury likely secondary to vasomotor nephropathy given hypotension -Given decreased UOP overnight given 500 ml bolus -Monitor intake and output -Renally dose medications -Avoid nephrotoxic medications -FeNa 0.12% -Trend BMP ID: Lactic acidosis -f/u blood culture -06/25 BC NGTD -Monitor WBC and temperature curve -s/p Rocephin x 2 Endo: NAD -Avoid hypoglycemia -Hemaglobin A1C 6.2 -Accuchecks ACHS Heme: NAD -Trend CBC -Transfuse hemoglobin less than 7 -SCDs to BLE while in bed Oncology: Stage IV Prostate -Recently started on bicalutamide as outpatient -Hem/Onc consulted, appreciate recommendations -Uric acid 4.2 -Continue supportive care The high probability of a clinically significant, sudden or life threatening deterioration of the [neuro/cardio] system(s) required my full and direct attention, intervention and personal management. The aggregate critical care time was [60] minutes. This time is in addition to time spent performing re ported procedures but includes the following: [x] Data Review and interpretation [x] Patient assessment and monitoring of vital signs [x] Documentation [x] Medication orders and management Disposition Plan: transfer to floor Total Time Spent with Patient (Minutes): 60 History Interval history: This is 82-year-old male with CVA (13 years ago), glaucoma, arthritis, stage IV prostate cancer currently started on bicalutamide 3 days ago presented to emergency department on 06/25 after having right-sided weakness with spasms, per family expressive aphasia, and confusion. Code stroke was called and ECG showed A. fib with bundle branch block and was noted to have hypotension. Initial CT showed previous stroke with no acute pathology. Patient was admitted to the hospitalist service with consults to telemetry neurology, CCM and cardiology for A. fib with RVR and to rule out CVA. Hospital course to date: 06/26: Patient had a MRI brain which showed subacute ischemia and MRA head/neck was obtained due to increasing renal function. Echocardiogram with bubble study pending. For hypertension patient was started on midodrine yesterday evening and given a total of 1500 mL normal saline bolus overnight. Today we administered 2 L normal saline bolus and his remains on Levophed at 2. PICC line ordered. Extensive conversation at bedside with daughter. 06/27: Off levophed, increase noted to Cr and decreased UOP therefore will give 500ml bolus. Will dc abx and transfer to tele Hospitalist Physical - Constitutional Vitals: Temp Pulse Resp BP Pulse Ox 98.9 F 94 H 37 H 99/74 89 06/27/22 08:00 06/27/22 10:16 06/27/22 10:16 06/27/22 10:16 06/27/22 10:16 General appearance: Present: no acute distress - EENT Eyes: Present: PERRL, EOM intact - Neck Neck: Present: normal ROM - Respiratory Respiratory effort: normal Respiratory: bilateral: diminished - Cardiovascular Rhythm: regular Heart Sounds: Present: S1 & S2. Absent: systolic murmur, diastolic murmur - Extremities Extremities: no ischemia, pulses intact, pulses symmetrical, No edema, normal temperature, normal color Peripheral Pulses: within normal limits - Abdominal General gastrointestinal: soft, non-tender, non-distended, normal bowel sounds - Psychiatric Psychiatric: cooperative - Neurologic Neurologic: other (does not move RUE, expressive aphasia, no drift noted to BLE) - Allied Health Allied health notes reviewed: nursing, PT, ST, OT, RT, social work Results - Labs CBC & Chem 7: 06/27/22 03:15 06/27/22 03:15 Labs: Laboratory Last Values WBC 9.9 K/mm3 (4.5-11.0) 06/27/22 03:15 RBC 4.48 M/mm3 (3.65-5.03) 06/27/22 03:15 Hgb 12.0 gm/dl (11.8-15.2) 06/27/22 03:15 Hct 36.2 % (35.5-45.6) 06/27/22 03:15 MCV 81 fl (84-94) L 06/27/22 03:15 MCH 27 pg (28-32) L 06/27/22 03:15 MCHC 33 % (32-34) 06/27/22 03:15 RDW 16.8 % (13.2-15.2) H 06/27/22 03:15 Plt Count 207 K/mm3 (140-440) 06/27/22 03:15 Lymph % (Auto) 11.8 % (13.4-35.0) L 06/26/22 04:24 Kendall % (Auto) 10.7 % (0.0-7.3) H 06/26/22 04:24 Eos % (Auto) 0.0 % (0.0-4.3) 06/26/22 04:24 Baso % (Auto) 0.2 % (0.0-1.8) 06/26/22 04:24 Lymph # (Auto) 1.4 K/mm3 (1.2-5.4) 06/26/22 04:24 Kendall # (Auto) 1.3 K/mm3 (0.0-0.8) H 06/26/22 04:24 Eos # (Auto) 0.0 K/mm3 (0.0-0.4) 06/26/22 04:24 Baso # (Auto) 0.0 K/mm3 (0.0-0.1) 06/26/22 04:24 Seg Neutrophils % 77.3 % (40.0-70.0) H 06/26/22 04:24 Seg Neutrophils # 9.0 K/mm3 (1.8-7.7) H 06/26/22 04:24 PT 17.4 Sec. (12.2-14.9) H 06/25/22 08:23 INR 1.27 (0.87-1.13) H 06/25/22 08:23 APTT 34.3 Sec. (24.2-36.6) 06/25/22 08:23 Sodium 139 mmol/L (137-145) 06/27/22 03:15 Potassium 4.6 mmol/L (3.6-5.0) 06/27/22 03:15 Chloride 108.7 mmol/L (98-107) H 06/27/22 03:15 Carbon Dioxide 19 mmol/L (22-30) L 06/27/22 03:15 Anion Gap 16 mmol/L 06/27/22 03:15 BUN 24 mg/dL (9-20) H 06/27/22 03:15 Creatinine 1.6 mg/dL (0.8-1.3) H 06/27/22 03:15 Estimated GFR 50 ml/min 06/27/22 03:15 BUN/Creatinine Ratio 15 % 06/27/22 03:15 Glucose 102 mg/dL (75-100) H 06/27/22 03:15 POC Glucose 82 mg/dL (70-105) 06/27/22 07:48 Hemoglobin A1c 6.2 % (4-6) H 06/26/22 04:24 Lactic Acid 2.50 mmol/L (0.7-2.0) H* 06/25/22 17:10 Uric Acid 4.2 mg/dL (3.5-7.6) 06/26/22 14:58 Calcium 7.9 mg/dL (8.4-10.2) L 06/27/22 03:15 Magnesium 1.70 mg/dL (1.7-2.3) 06/25/22 08:23 Total Bilirubin 1.20 mg/dL (0.1-1.2) 06/26/22 04:24 AST 141 units/L (5-40) H 06/26/22 04:24 ALT 31 units/L (7-56) 06/26/22 04:24 Alkaline Phosphatase 374 units/L (35-129) H 06/26/22 04:24 Ammonia 28.0 umol/L (25-60) 06/25/22 17:10 Total Protein 5.8 g/dL (6.3-8.2) L 06/26/22 04:24 Albumin 2.8 g/dL (3.9-5) L 06/26/22 04:24 Albumin/Globulin Ratio 0.9 % 06/26/22 04:24 Triglycerides 52 mg/dL (2-149) 06/26/22 04:24 Cholesterol 107 mg/dL (50-199) 06/26/22 04:24 LDL Cholesterol Direct 64 mg/dL (50-130) 06/26/22 04:24 HDL Cholesterol 42 mg/dL (40-59) 06/26/22 04:24 Cholesterol/HDL Ratio 2.54 % 06/26/22 04:24 Vitamin B12 582.9 pg/mL (211-911) 06/25/22 17:10 TSH 0.805 mlU/mL (0.270-4.200) 06/25/22 17:10 Urine Color Whitney (Yellow) 06/25/22 09:24 Urine Turbidity Clear (Clear) 06/25/22 09:24 Urine pH 6.0 (5.0-7.0) 06/25/22 09:24 Ur Specific Barnum 1.020 (1.003-1.030) 06/25/22 09:24 Urine Protein <30 mg dl mg/dL (Negative) 06/25/22 09:24 Urine Glucose (UA) Negative mg/dL (Negative) 06/25/22 09:24 Urine Ketones Negative mg/dL (Negative) 06/25/22 09:24 Urine Blood Negative (Negative) 06/25/22 09:24 Urine Nitrite Negative (Negative) 06/25/22 09:24 Ur Reducing Substances Not Reportable 06/25/22 09:24 Urine Bilirubin Negative (Negative) 06/25/22 09:24 Urine Ictotest Not Reportable 06/25/22 09:24 Urine Urobilinogen < 2.0 mg/dL (<2.0) 06/25/22 09:24 Ur Leukocyte Esterase Trace (Negative) 06/25/22 09:24 Urine WBC (Auto) 5.0 /HPF (0.0-6.0) 06/25/22 09:24 Urine RBC (Auto) 11.0 /HPF (0.0-6.0) 06/25/22 09:24 U Epithel Cells (Auto) 2.0 /HPF (0-13.0) 06/25/22 09:24 Urine Mucus Few /HPF 06/25/22 09:24 Urine Creatinine 286.7 mg/dL (0.1-20.0) H 06/26/22 21:30 Urine Sodium 30 mmol/L 06/26/22 21:30 Urine Opiates Screen Presumptive negative 06/25/22 14:05 Urine Methadone Screen Presumptive negative 06/25/22 14:05 Ur Barbiturates Screen Presumptive negative 06/25/22 14:05 Ur Phencyclidine Scrn Presumptive negative 06/25/22 14:05 Ur Amphetamines Screen Presumptive negative 06/25/22 14:05 U Benzodiazepines Scrn Presumptive negative 06/25/22 14:05 Urine Cocaine Screen Presumptive negative 06/25/22 14:05 U Marijuana (THC) Screen Presumptive negative 06/25/22 14:05 Drugs of Abuse Note Disclamer 06/25/22 14:05 Microbiology: Microbiology 06/25/22 08:48 Peripheral/Venous Blood Culture - Preliminary NO GROWTH AFTER 24 HOURS 06/25/22 08:48 Peripheral/Venous Blood Culture - Preliminary NO GROWTH AFTER 24 HOURS Javier/IV: Voiding Method Indwelling Catheter Active Medications - Current Medications Current Medications: Generic Name Dose Route Start Last Admin Trade Name Freq PRN Reason Stop Dose Admin Acetaminophen 650 mg 06/25/22 11:23 Acetaminophen 325 Mg Tab PO Q4H PRN Pain, Mild (1-3) Albuterol 2.5 mg 06/25/22 11:23 Albuterol 2.5 Mg/3 Ml Nebu IH Q3HRT PRN Shortness Of Breath Artificial Tears 2 drops 06/25/22 22:00 06/27/22 05:54 Hypromellose 0.5% Ophth Soln 15 Ml OU Not Given Q8HR RAMEZ Aspirin 325 mg 06/26/22 10:00 06/27/22 09:16 Aspirin 325 Mg Tab PO 325 mg QDAY RAMEZ Administration Atorvastatin Calcium 40 mg 06/25/22 22:00 06/26/22 21:13 Atorvastatin 40 Mg Tab PO 40 mg QHS RAMEZ Administration Bisacodyl 10 mg 06/25/22 11:23 Bisacodyl 10 Mg Rect Supp DC QDAY PRN Constipation Docusate Sodium 100 mg 06/26/22 22:00 06/27/22 09:47 Docusate Sodium 100 Mg Cap PO Not Given BID RAMEZ Heparin Sodium (Porcine) 5,000 unit 06/25/22 14:00 06/27/22 05:54 Heparin 5,000 Unit/1 Ml Vial SUB-Q 5,000 unit Q8HR RAMEZ Administration Sodium Chloride 1,000 mls @ 42 mls/hr 06/25/22 18:00 06/25/22 19:09 Nacl 0.9% 1000 Ml IV 42 mls/hr DIRECT RAMEZ Administration NORepinephrine/NS 8 MG-250 ML 8 mg in 250 mls @ 3.75 mls/hr 06/25/22 23:06 06/26/22 16:10 Norepinephrine/Ns 8 Mg-250 Ml (Double Conc) IV 0 mcg/min TITRATE RAMEZ 0 mls/hr Titration Protocol 2 MCG/MIN Ceftriaxone Sodium 1 gm in 50 mls @ 100 mls/hr 06/26/22 08:00 06/27/22 08:04 Rocephin/Ns 1 Gm/50 Ml IV 100 mls/hr Q24H RAMEZ Administration Protocol Latanoprost 1 drops 06/27/22 22:00 Latanoprost 0.005% Ophth Soln 2.5 Ml OU QHS RAMEZ Magnesium Hydroxide 30 ml 06/25/22 11:23 Magnesium Hydroxide (Mom) Oral Liqd Udc PO Q4H PRN Constipation Metoclopramide HCl 10 mg 06/25/22 11:23 Metoclopramide 10 Mg Tab PO Q6H PRN Nausea And Vomiting Midodrine 10 mg 06/25/22 16:16 06/27/22 08:04 Midodrine 5 Mg Tab PO 10 mg TID@0800,1200,1600 RAMEZ Administration Naloxone HCl 0.1 mg 06/25/22 11:23 Naloxone 0.4 Mg/1 Ml Inj IV Q2MIN PRN Res Rate </= 8 or 02 SAT < 92% Ondansetron HCl 4 mg 06/25/22 11:23 Ondansetron 4 Mg/2 Ml Inj IV Q8H PRN Nausea And Vomiting Oxycodone/Acetaminophen 1 tab 06/25/22 11:23 Oxycodone /Acetaminophen 5-325mg Tab PO Q6H PRN Pain, Moderate (4-6) Promethazine HCl 25 mg 06/25/22 11:23 Promethazine 25 Mg Rect Supp DC Q6H PRN Nausea And Vomiting Senna 8.6 mg 06/25/22 22:00 06/27/22 09:47 Sennosides 8.6 Mg Tab PO Not Given BID RAMEZ Sodium Chloride 10 ml 06/25/22 22:00 06/27/22 09:17 Sodium Chloride 0.9% 10 Ml Flush Syringe IV 10 ml BID RAMEZ Administration Sodium Chloride 10 ml 06/25/22 11:23 Sodium Chloride 0.9% 10 Ml Flush Syringe IV PRN PRN LINE FLUSH Tamsulosin HCl 0.4 mg 06/26/22 10:00 06/27/22 09:16 Tamsulosin 0.4 Mg Cap PO 0.4 mg QDAY RAMEZ Administration Nutrition/Malnutrition Assess - Dietary Evaluation Nutrition/Malnutrition Findings: Nutrition Notes Start: 06/25/22 18:00 Freq: Status: Active Protocol: Document 06/26/22 14:43 HEATHER (Rec: 06/26/22 15:10 HEATHER [id number]) Nutrition Notes Initial or Follow up Brief Note Current Diagnosis Hypertension,Malnutrition, Stroke Other Pertinent Diagnosis Metabolic Encephalopathy & Acidosis, Atrial Fibrilation, SIRS, Prostate Can Current Diet Cardiac Diet (since D 06/26). Height 5 ft 11 in Weight 73.9 kg [place] Body Weight (kg) 78.18 BMI 22.7 Intake Prior to Admission Poor Weight change and time frame Pt denies having loss body weight [employer]. 2.476 Kg body weight loss in 1 day reported. Weight Status Appropriate Subjective/Other Information RD consult for skin risk assessment. Still no reports available on Pt's PO intake of meals at the time, will assess at F/U. Pt is on Room Air, O2 saturation @ 98%, according to Physical Assessment History notes. Pt presents an unspecified area of concern in the sacral area -apparently healing-, according to Physical Assessment History notes. Percent of energy/protein needs met: Prescribed Cardiac Diet provides for energy/protein needs (2,230 Kcal/85 g) during LOS. Is patient on ventilator? No Is Patient Ambulatory and/or Out of Bed Yes [facility] [ [id number] [id number]] Kcal/Kg value to use for calculation 29 Approximate Energy Requirements Using 2143 kcal/Kg Calculation Used for Recommendations Kcal/kg Additional Notes Protein: 1-1.2 g/Kg ABW; 76-91 g/day. Fluids: 1 ml/Kcal, or as per MD. Nutrition Intervention Change Diet Order: Change to Cardiac Diet. Follow-Up By: 07/03/22 Additional Comments Continue monitoring food tolerance, %PO intake of meals , and BM.
--- NOTE | 2022-06-27 11:54 | Progress Note ---
Assessment and Plan 82 y/o male with prior history of stroke, presents with several days of stroke like symptoms that have progressed, and found to be hypotensive. 06/27/22: Off pressors. Had depressed EF so not sure what baseline BP will be. Cardiology awaiting recs from [place]. Clinically stable, will transfer to [facility]. Agree with more fluids but if renal function continues to worsen, will need nephrology consult. Will sign off once out of unit. 1. Cards-despite depressed EF, patient still on room air with good sats despite volume challenges yesterday. Likely needs more. Will give at least 2 more liter boluses today and reassess. Given new information of CHF, doubt patient's blood pressure is normal at baseline. Will change parameters for weaning pressors to maps of 55 or greater as long as mental state does not become compromised. Follow up cards recs for today. 2. Renal- bump in Cr to 1.5 from 1.3 on yesterday. Still with urine output. Would like to give more volume. Will send urine lytes as well. If continues to worsen, renal ultrasound and renal consult. 3. neuro- follow up MRI results from today and any new neuro recs 4. Prophylaxis 5. Guarded prognosis CCT 31 minutes. Subjective Date of service: 06/27/22 Interval history: no acute events. Off pressors since about 4pm yesterday. Cr bumped again and urine output has decreased. Remains on room air, no respiratory distress. Picc placed yesterday. FeNa was consistent with pre renal state on yesterday and renal ultrasound did not show hydro. Bladder scan was negative. Objective - Constitutional Vitals: Vital Signs - 12hr 06/26/22 06/27/22 06/27/22 23:45 00:00 00:04 Temperature 98.7 F Pulse Rate 58 L 70 66 Pulse Rate [ 80 From Monitor] Respiratory 24 10 L 24 Rate Blood Pressure 83/45 83/45 85/48 O2 Sat by Pulse 100 100 100 Oximetry 06/27/22 06/27/22 06/27/22 00:15 00:30 00:45 Temperature Pulse Rate 67 68 70 Pulse Rate [ From Monitor] Respiratory 17 10 L 15 Rate Blood Pressure 85/47 92/54 92/48 O2 Sat by Pulse 100 100 96 Oximetry 06/27/22 06/27/22 06/27/22 01:00 01:15 01:30 Temperature Pulse Rate 63 62 78 Pulse Rate [ From Monitor] Respiratory 16 17 29 H Rate Blood Pressure 92/48 79/50 87/57 O2 Sat by Pulse 96 100 98 Oximetry 06/27/22 06/27/22 06/27/22 01:45 02:00 02:15 Temperature Pulse Rate 80 74 60 Pulse Rate [ From Monitor] Respiratory 38 H 29 H 31 H Rate Blood Pressure 97/59 97/59 95/53 O2 Sat by Pulse 99 99 99 Oximetry 06/27/22 06/27/22 06/27/22 02:30 02:46 03:00 Temperature Pulse Rate 59 L 57 L 61 Pulse Rate [ From Monitor] Respiratory 16 30 H 33 H Rate Blood Pressure 95/53 95/53 87/49 O2 Sat by Pulse 99 100 Oximetry 06/27/22 06/27/22 06/27/22 03:16 03:30 03:46 Temperature Pulse Rate 79 70 68 Pulse Rate [ From Monitor] Respiratory 38 H 31 H 19 Rate Blood Pressure 97/44 91/51 100/35 O2 Sat by Pulse 98 98 98 Oximetry 06/27/22 06/27/22 06/27/22 03:52 03:54 04:00 Temperature 99 F Pulse Rate 68 77 Pulse Rate [ 80 From Monitor] Respiratory 23 Rate Blood Pressure 98/63 O2 Sat by Pulse 100 99 Oximetry 06/27/22 06/27/22 06/27/22 04:15 04:30 04:45 Temperature Pulse Rate 65 69 72 Pulse Rate [ From Monitor] Respiratory 19 32 H 19 Rate Blood Pressure 81/56 89/47 88/54 O2 Sat by Pulse 99 98 99 Oximetry 06/27/22 06/27/22 06/27/22 05:00 05:16 05:30 Temperature Pulse Rate 71 72 68 Pulse Rate [ From Monitor] Respiratory 10 L 21 22 Rate Blood Pressure 88/54 86/59 97/49 O2 Sat by Pulse 99 99 98 Oximetry 06/27/22 06/27/22 06/27/22 05:46 06:00 06:15 Temperature Pulse Rate 78 68 76 Pulse Rate [ From Monitor] Respiratory 21 31 H 34 H Rate Blood Pressure 81/50 81/50 94/46 O2 Sat by Pulse 93 100 99 Oximetry 06/27/22 06/27/22 06/27/22 06:30 06:46 07:00 Temperature Pulse Rate 60 69 85 Pulse Rate [ From Monitor] Respiratory 28 H 31 H 16 Rate Blood Pressure 96/54 91/59 91/50 O2 Sat by Pulse 99 98 98 Oximetry 06/27/22 06/27/22 06/27/22 07:15 07:30 07:45 Temperature Pulse Rate 72 77 70 Pulse Rate [ From Monitor] Respiratory 24 26 H 36 H Rate Blood Pressure 97/57 93/56 94/48 O2 Sat by Pulse 99 90 87 Oximetry 06/27/22 06/27/22 06/27/22 08:00 08:16 08:30 Temperature 98.9 F Pulse Rate 73 69 80 Pulse Rate [ 69 From Monitor] Respiratory 36 H 36 H 39 H Rate Blood Pressure 94/48 99/53 99/53 O2 Sat by Pulse 90 93 94 Oximetry 06/27/22 06/27/22 06/27/22 08:46 09:00 09:16 Temperature Pulse Rate 77 60 76 Pulse Rate [ From Monitor] Respiratory 27 H 27 H 40 H Rate Blood Pressure 99/53 96/44 96/44 O2 Sat by Pulse 92 90 100 Oximetry 06/27/22 06/27/22 06/27/22 09:30 09:46 10:00 Temperature Pulse Rate 88 86 79 Pulse Rate [ From Monitor] Respiratory 30 H 33 H 32 H Rate Blood Pressure 96/44 96/44 94/53 O2 Sat by Pulse 98 99 100 Oximetry 06/27/22 06/27/22 06/27/22 10:16 10:30 10:46 Temperature Pulse Rate 94 H 80 73 Pulse Rate [ From Monitor] Respiratory 37 H 28 H 21 Rate Blood Pressure 99/74 109/83 109/83 O2 Sat by Pulse 89 98 99 Oximetry 06/27/22 11:00 Temperature Pulse Rate 75 Pulse Rate [ From Monitor] Respiratory 34 H Rate Blood Pressure 93/54 O2 Sat by Pulse 97 Oximetry - Labs CBC & Chem 7: 06/27/22 03:15 06/27/22 03:15 Labs: Abnormal lab results 06/26/22 06/27/22 06/27/22 Range/Units 21:30 03:15 03:15 MCV 81 L (84-94) fl MCH 27 L (28-32) pg RDW 16.8 H (13.2-15.2) % Chloride 108.7 H (98-107) mmol/L Carbon Dioxide 19 L (22-30) mmol/L BUN 24 H (9-20) mg/dL Creatinine 1.6 H (0.8-1.3) mg/dL Glucose 102 H (75-100) mg/dL Calcium 7.9 L (8.4-10.2) mg/dL Urine Creatinine 286.7 H (0.1-20.0) mg/dL Medications & Allergies - Medications Allergies/Adverse Reactions: Allergies No Known Allergies Allergy (Verified 06/25/22 08:03) Home Medications: Home Medications Medication Instructions Recorded Confirmed Last Taken Type Bicalutamide [Casodex] 50 mg PO DAILY 06/25/22 06/25/22 06/24/22 History Simvastatin 20 mg PO DAILY 06/25/22 06/25/22 06/24/22 History Tamsulosin [Flomax] 0.4 mg PO QDAY 06/25/22 06/25/22 06/24/22 History lisinopriL [Lisinopril] 20 mg PO DAILY 06/25/22 06/25/22 06/24/22 History Active Medications: Generic Name Dose Route Start Last Admin Trade Name Freq PRN Reason Stop Dose Admin Acetaminophen 650 mg 06/25/22 11:23 Acetaminophen 325 Mg Tab PO Q4H PRN Pain, Mild (1-3) Albuterol 2.5 mg 06/25/22 11:23 Albuterol 2.5 Mg/3 Ml Nebu IH Q3HRT PRN Shortness Of Breath Artificial Tears 2 drops 06/25/22 22:00 06/27/22 05:54 Hypromellose 0.5% Ophth Soln 15 Ml OU Not Given Q8HR RAMEZ Aspirin 325 mg 06/26/22 10:00 06/27/22 09:16 Aspirin 325 Mg Tab PO 325 mg QDAY RAMEZ Administration Atorvastatin Calcium 40 mg 06/25/22 22:00 06/26/22 21:13 Atorvastatin 40 Mg Tab PO 40 mg QHS RAMEZ Administration Bisacodyl 10 mg 06/25/22 11:23 Bisacodyl 10 Mg Rect Supp CA QDAY PRN Constipation Docusate Sodium 100 mg 06/26/22 22:00 06/27/22 09:47 Docusate Sodium 100 Mg Cap PO Not Given BID [facility] Heparin Sodium (Porcine) 5,000 unit 06/25/22 14:00 06/27/22 05:54 Heparin 5,000 Unit/1 Ml Vial SUB-Q 5,000 unit Q8HR RAMEZ Administration Sodium Chloride 1,000 mls @ 42 mls/hr 06/25/22 18:00 06/25/22 19:09 Nacl 0.9% 1000 Ml IV 42 mls/hr DIRECT RAMEZ Administration NORepinephrine/NS 8 MG-250 ML 8 mg in 250 mls @ 3.75 mls/hr 06/25/22 23:06 06/26/22 16:10 Norepinephrine/Ns 8 Mg-250 Ml (Double Conc) IV 0 mcg/min TITRATE RAMEZ 0 mls/hr Titration Protocol 2 MCG/MIN Latanoprost 1 drops 06/27/22 22:00 Latanoprost 0.005% Ophth Soln 2.5 Ml OU QHS RAMEZ Magnesium Hydroxide 30 ml 06/25/22 11:23 Magnesium Hydroxide (Mom) Oral Liqd Udc PO Q4H PRN Constipation Metoclopramide HCl 10 mg 06/25/22 11:23 Metoclopramide 10 Mg Tab PO Q6H PRN Nausea And Vomiting Midodrine 10 mg 06/25/22 16:16 06/27/22 08:04 Midodrine 5 Mg Tab PO 10 mg TID@0800,1200,1600 RAMEZ Administration Naloxone HCl 0.1 mg 06/25/22 11:23 Naloxone 0.4 Mg/1 Ml Inj IV Q2MIN PRN Res Rate </= 8 or 02 SAT < 92% Ondansetron HCl 4 mg 06/25/22 11:23 Ondansetron 4 Mg/2 Ml Inj IV Q8H PRN Nausea And Vomiting Oxycodone/Acetaminophen 1 tab 06/25/22 11:23 Oxycodone /Acetaminophen 5-325mg Tab PO Q6H PRN Pain, Moderate (4-6) Promethazine HCl 25 mg 06/25/22 11:23 Promethazine 25 Mg Rect Supp CA Q6H PRN Nausea And Vomiting Senna 8.6 mg 06/25/22 22:00 06/27/22 09:47 Sennosides 8.6 Mg Tab PO Not Given BID RAMEZ Sodium Chloride 10 ml 06/25/22 22:00 06/27/22 09:17 Sodium Chloride 0.9% 10 Ml Flush Syringe IV 10 ml BID RAMEZ Administration Sodium Chloride 10 ml 07/25/22 11:23 Sodium Chloride 0.9% 10 Ml Flush Syringe IV PRN PRN LINE FLUSH Tamsulosin HCl 0.4 mg 06/26/22 10:00 06/27/22 09:16 Tamsulosin 0.4 Mg Cap PO 0.4 mg QDAY RAMEZ Administration
--- NOTE | 2022-06-27 12:34 | Hem/Onc Consultation ---
History of Present Illness - Reason for Consult Consult date: 06/27/22 Stage IV prostate cancer - History of Present Illness Onc Consult Note Seen via [employer] CPT 92627 Dx Prostate Cancer This is a 82 yo AA male who presented to [facility] ED with complaints of right sided weakness, spasms, expressive aphasia and confusion. Past medical history of CVA (13 years ago), glaucoma, arthritis, and stage IV prostate cancer currently started on bicalutamide 3 days ago. Upon arrival to the ED, code stroke was called and ECG showed afib with bundle branch block and was noted to have hypotension. Initial CT head revealed age-related atrophy and microvascular ischemic changes, large areas of encephalomalacia in multiple vascular distributions secondary to multifocal remote cortical infarctions, no acute intracranial normality. Brain MRI revealed subacute border zone ischemic changes in the left frontal lobe and left centrum semiovale, focal areas of subacute ischemia in the left precentral gyrus and left superior frontoparietal. Head/neck MRA is pending. Oncology was consulted for evaluation of stage IV prostate cancer. Patient examined at bedside, in no acute distress, AAOX1. No bleeding noted or reported. DATA REVIEWED BELOW IMP: Stage IV prostate cancer with recent initiation of bicalutamide Clotting tendency Hypercoagulable state of malignancy, with past history of CVA, now with acute ischemic changes Initiation of bicalutamide and new stroke may be a coincidence Plan: Labs to include cardiolipin ab, hgEP, iron studies Recommend Lovenox 1mg/kg daily while inpatient, frequency adjusted for age and renal function Plan for discharge on Eliquis 2.5mg BID Follow MRA results Neurology following, appreciate recommendations No plans for inpatient antitumor therapy Outpatient follow up with established Urologist/Oncologist Laboratory Last Values WBC 9.9 K/mm3 (4.5-11.0) 06/27/22 03:15 Hgb 12.0 gm/dl (11.8-15.2) 06/27/22 03:15 Hct 36.2 % (35.5-45.6) 06/27/22 03:15 MCV 81 fl (84-94) L 06/27/22 03:15 Plt Count 207 K/mm3 (140-440) 06/27/22 03:15 PT 17.4 Sec. (12.2-14.9) H 06/25/22 08:23 INR 1.27 (0.87-1.13) H 06/25/22 08:23 APTT 34.3 Sec. (24.2-36.6) 06/25/22 08:23 Drugs of Abuse Note Disclamer 06/25/22 14:05 Past History Past Medical History: hypertension, stroke (Over 13 years ago), other (stage IV prostate cancer, arthritis, glaucoma) Past Surgical History: Other (pt cannot provide hx;) Social history: no significant social history, full code, other ( recently ). denies: smoking, alcohol abuse, prescription drug abuse, IV drug use Family history: no significant family history Medications and Allergies Allergies Allergy/AdvReac Type Severity Reaction Status Date / Time No Known Allergies Allergy Verified 06/25/22 08:03 Home Medications Medication Instructions Recorded Confirmed Last Taken Type Bicalutamide [Casodex] 50 mg PO DAILY 06/25/22 06/25/22 06/24/22 History Simvastatin 20 mg PO DAILY 06/25/22 06/25/22 06/24/22 History Tamsulosin [Flomax] 0.4 mg PO QDAY 06/25/22 06/25/22 06/24/22 History lisinopriL [Lisinopril] 20 mg PO DAILY 06/25/22 06/25/22 06/24/22 History Active Meds: Active Medications Acetaminophen (Acetaminophen 325 Mg Tab) 650 mg PO Q4H PRN PRN Reason: Pain, Mild (1-3) Albuterol (Albuterol 2.5 Mg/3 Ml Nebu) 2.5 mg IH Q3HRT PRN PRN Reason: Shortness Of Breath Apixaban (Apixaban 2.5 Mg Tab) 2.5 mg PO Q12HR RAMEZ; Protocol Artificial Tears (Hypromellose 0.5% Ophth Soln 15 Ml) 2 drops OU Q8HR RAMEZ Last Admin: 06/27/22 05:54 Dose: Not Given Aspirin (Aspirin 81 Mg Tab Chew) 81 mg PO QDAY RAMEZ Atorvastatin Calcium (Atorvastatin 40 Mg Tab) 40 mg PO QHS [facility] Last Admin: 06/26/22 21:13 Dose: 40 mg Bisacodyl (Bisacodyl 10 Mg Rect Supp) 10 mg DC QDAY PRN PRN Reason: Constipation Docusate Sodium (Docusate Sodium 100 Mg Cap) 100 mg PO BID [facility] Last Admin: 06/27/22 09:47 Dose: Not Given Sodium Chloride (Nacl 0.9% 1000 Ml) 1,000 mls @ 42 mls/hr IV DIRECT [facility] Last Admin: 06/25/22 19:09 Dose: 42 mls/hr NORepinephrine/NS 8 MG-250 ML (Norepinephrine/Ns 8 Mg-250 Ml (Double Conc)) 8 mg in 250 mls @ 3.75 mls/hr IV TITRATE RAMEZ; Protocol Last Titration: 06/26/22 16:10 Dose: 0 mcg/min, 0 mls/hr Latanoprost (Latanoprost 0.005% Ophth Soln 2.5 Ml) 1 drops OU QHS [facility] Magnesium Hydroxide (Magnesium Hydroxide (Mom) Oral Liqd Udc) 30 ml PO Q4H PRN PRN Reason: Constipation Metoclopramide HCl (Metoclopramide 10 Mg Tab) 10 mg PO Q6H PRN PRN Reason: Nausea And Vomiting Midodrine (Midodrine 5 Mg Tab) 10 mg PO TID@0800,1200,1600 [facility] Last Admin: 06/27/22 08:04 Dose: 10 mg Naloxone HCl (Naloxone 0.4 Mg/1 Ml Inj) 0.1 mg IV Q2MIN PRN PRN Reason: Res Rate </= 8 or 02 SAT < 92% Ondansetron HCl (Ondansetron 4 Mg/2 Ml Inj) 4 mg IV Q8H PRN PRN Reason: Nausea And Vomiting Oxycodone/Acetaminophen (Oxycodone /Acetaminophen 5-325mg Tab) 1 tab PO Q6H PRN PRN Reason: Pain, Moderate (4-6) Promethazine HCl (Promethazine 25 Mg Rect Supp) 25 mg DC Q6H PRN PRN Reason: Nausea And Vomiting Senna (Sennosides 8.6 Mg Tab) 8.6 mg PO BID [facility] Last Admin: 06/27/22 09:47 Dose: Not Given Sodium Chloride (Sodium Chloride 0.9% 10 Ml Flush Syringe) 10 ml IV BID [facility] Last Admin: 06/27/22 09:17 Dose: 10 ml Sodium Chloride (Sodium Chloride 0.9% 10 Ml Flush Syringe) 10 ml IV PRN PRN PRN Reason: LINE FLUSH Tamsulosin HCl (Tamsulosin 0.4 Mg Cap) 0.4 mg PO QDAY [facility] Last Admin: 06/27/22 09:16 Dose: 0.4 mg Exam - Constitutional Vitals: Last Vital Signs Temp 98.9 F 06/27/22 08:00 Pulse 75 06/27/22 11:00 Resp 34 H 06/27/22 11:00 BP 93/54 06/27/22 11:00 Pulse Ox 97 06/27/22 11:00 Results - Labs lab Results: Laboratory Results - last 24 hr 06/26/22 06/26/22 06/26/22 14:58 16:04 20:20 WBC RBC Hgb Hct MCV MCH MCHC RDW Plt Count Sodium Potassium Chloride Carbon Dioxide Anion Gap BUN Creatinine Estimated GFR BUN/Creatinine Ratio Glucose POC Glucose 100 96 Uric Acid 4.2 Calcium Urine Creatinine Urine Sodium 06/26/22 06/27/22 06/27/22 21:30 02:21 03:15 WBC 9.9 RBC 4.48 Hgb 12.0 Hct 36.2 MCV 81 L MCH 27 L MCHC 33 RDW 16.8 H Plt Count 207 Sodium Potassium Chloride Carbon Dioxide Anion Gap BUN Creatinine Estimated GFR BUN/Creatinine Ratio Glucose POC Glucose 97 Uric Acid Calcium Urine Creatinine 286.7 H Urine Sodium 30 06/27/22 06/27/22 06/27/22 03:15 05:49 07:48 WBC RBC Hgb Hct MCV MCH MCHC RDW Plt Count Sodium 139 Potassium 4.6 Chloride 108.7 H Carbon Dioxide 19 L Anion Gap 16 BUN 24 H Creatinine 1.6 H Estimated GFR 50 BUN/Creatinine Ratio 15 Glucose 102 H POC Glucose 81 82 Uric Acid Calcium 7.9 L Urine Creatinine Urine Sodium 06/27/22 11:37 WBC RBC Hgb Hct MCV MCH MCHC RDW Plt Count Sodium Potassium Chloride Carbon Dioxide Anion Gap BUN Creatinine Estimated GFR BUN/Creatinine Ratio Glucose POC Glucose 100 Uric Acid Calcium Urine Creatinine Urine Sodium
--- NOTE | 2022-06-27 13:32 | Progress Note ---
Assessment and Plan - Patient Problems (1) Atrial fibrillation Current Visit: Yes Status: Acute Plan to address problem: 82-year-old man who presents with altered mental status and is undergoing neurological work-up for possible CVA, presented with abnormal ECG that shows atrial fibrillation, well-controlled ventricular rate, unknown chronicity. 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 With regards to management of atrial fibrillation, he will ultimately benefit from low-dose oral anticoagulation when his neurological status permits. There is no indication for AV hector blocking agents, patient is rate controlled at baseline. We have requested a copy of his previous ECG from his primary care doctor's office, to assess chronicity of his atrial fibrillation and bundle branch block abnormality on his ECG. Neurology to advise on timing of initiation of oral anticoagulation with a NOAC. Subjective Date of service: 06/27/22 Principal diagnosis: CVA, atrial fibrillation Interval history: Patient is comfortable in no acute respiratory distress. On quality assurance monitor final, there is atrial fibrillation, well-controlled ventricular rate in the 70s to 80s. Objective Vital Signs Temp Pulse Pulse Resp BP Pulse Ox 06/27/22 13:00 82 21 87/54 98 06/27/22 12:46 75 23 92/50 99 06/27/22 12:30 73 29 H 92/50 98 06/27/22 12:16 68 29 H 92/50 98 06/27/22 12:00 98.2 F 69 81 20 92/50 98 06/27/22 11:46 73 16 93/54 99 06/27/22 11:30 69 33 H 93/54 99 06/27/22 11:16 59 L 35 H 93/54 99 06/27/22 11:00 75 34 H 93/54 97 06/27/22 10:46 73 21 109/83 99 06/27/22 10:30 80 28 H 109/83 98 06/27/22 10:16 94 H 37 H 99/74 89 06/27/22 10:00 79 32 H 94/53 100 06/27/22 09:46 86 33 H 96/44 99 06/27/22 09:30 88 30 H 96/44 98 06/27/22 09:16 76 40 H 96/44 100 06/27/22 09:00 60 27 H 96/44 90 06/27/22 08:46 77 27 H 99/53 92 06/27/22 08:30 80 39 H 99/53 94 06/27/22 08:16 69 36 H 99/53 93 06/27/22 08:00 98.9 F 73 69 36 H 94/48 90 06/27/22 07:45 70 36 H 94/48 87 06/27/22 07:30 77 26 H 93/56 90 06/27/22 07:15 72 24 97/57 99 06/27/22 07:00 85 16 91/50 98 06/27/22 06:46 69 31 H 91/59 98 06/27/22 06:30 60 28 H 96/54 99 06/27/22 06:15 76 34 H 94/46 99 06/27/22 06:00 68 31 H 81/50 100 06/27/22 05:46 78 21 81/50 93 06/27/22 05:30 68 22 97/49 98 06/27/22 05:16 72 21 86/59 99 06/27/22 05:00 71 10 L 88/54 99 06/27/22 04:45 72 19 88/54 99 06/27/22 04:30 69 32 H 89/47 98 06/27/22 04:15 65 19 81/56 99 06/27/22 04:00 99 F 77 23 98/63 99 06/27/22 03:54 80 100 06/27/22 03:52 68 06/27/22 03:46 68 19 100/35 98 06/27/22 03:30 70 31 H 91/51 98 06/27/22 03:16 79 38 H 97/44 98 06/27/22 03:00 61 33 H 87/49 100 06/27/22 02:46 57 L 30 H 95/53 99 06/27/22 02:30 59 L 16 95/53 06/27/22 02:15 60 31 H 95/53 99 06/27/22 02:00 74 29 H 97/59 99 06/27/22 01:45 80 38 H 97/59 99 06/27/22 01:30 78 29 H 87/57 98 06/27/22 01:15 62 17 79/50 100 06/27/22 01:00 63 16 92/48 96 06/27/22 00:45 70 15 92/48 96 06/27/22 00:30 68 10 L 92/54 100 06/27/22 00:15 67 17 85/47 100 06/27/22 00:04 66 24 85/48 100 06/27/22 00:00 98.7 F 70 80 10 L 83/45 100 06/26/22 23:45 58 L 24 83/45 100 06/26/22 23:30 62 30 H 76/49 100 06/26/22 23:15 72 11 L 83/49 100 06/26/22 23:00 66 14 86/49 94 06/26/22 22:45 70 13 86/50 97 06/26/22 22:30 63 21 95/48 100 06/26/22 22:16 65 15 87/49 100 06/26/22 22:00 63 10 L 97/49 100 06/26/22 21:45 68 15 90/57 100 06/26/22 21:30 61 41 H 86/51 06/26/22 21:15 75 18 93/60 100 06/26/22 21:00 64 31 H 80/47 100 06/26/22 20:45 67 36 H 92/49 100 06/26/22 20:30 71 34 H 83/52 06/26/22 20:15 70 31 H 82/53 99 06/26/22 20:00 98.5 F 68 80 21 84/49 100 06/26/22 19:46 83 36 H 85/48 99 06/26/22 19:30 88 30 H 80/53 99 06/26/22 19:10 70 27 H 98 06/26/22 19:06 66 20 97 06/26/22 19:00 71 06/26/22 18:41 61 22 86/45 95 06/26/22 18:30 55 L 28 H 86/45 100 06/26/22 18:21 56 L 44 H 77/45 84 06/26/22 18:11 60 19 78/45 98 06/26/22 18:00 62 12 78/45 99 06/26/22 17:51 57 L 17 78/46 99 06/26/22 17:41 62 25 H 78/45 99 06/26/22 17:30 70 29 H 78/45 99 06/26/22 17:21 72 34 H 77/45 99 06/26/22 17:11 69 33 H 91/52 100 06/26/22 17:00 83 35 H 91/52 99 06/26/22 16:51 87 37 H 100/61 99 06/26/22 16:41 67 27 H 94/55 98 06/26/22 16:30 84 28 H 94/55 99 06/26/22 16:29 99.8 F H 06/26/22 16:21 98 H 26 H 94/55 98 06/26/22 16:11 83 38 H 98/53 100 06/26/22 16:00 83 28 H 89/46 98 06/26/22 15:51 79 38 H 89/46 100 06/26/22 15:41 76 21 93/49 100 06/26/22 15:30 81 39 H 93/49 97 06/26/22 15:21 75 29 H 84/51 99 06/26/22 15:11 74 43 H 83/44 100 06/26/22 15:01 67 60 22 83/44 95 06/26/22 14:51 84 28 H 103/63 98 06/26/22 14:41 89 31 H 105/59 96 06/26/22 14:30 87 42 H 105/59 97 06/26/22 14:21 86 23 96/55 97 06/26/22 14:11 82 17 90/49 100 06/26/22 14:00 96 H 29 H 87/57 96 06/26/22 13:51 106 H 25 H 123/62 100 06/26/22 13:40 107 H 22 107/59 100 - Physical Examination General: Other (No acute respiratory distress, intermittent, habitual grunting noises) HEENT: Positive: PERRL Neck: Positive: neck supple Cardiac: Positive: irregularly irregular Lungs: Positive: Decreased Breath Sounds Neuro: Positive: Weakness (Generalized lethargy, nonfocal) Abdomen: Positive: Soft Skin: Positive: Clear Extremities: Absent: edema - Labs and Meds CBC 06/27/22 Range/Units 03:15 WBC 9.9 (4.5-11.0) K/mm3 RBC 4.48 (3.65-5.03) M/mm3 Hgb 12.0 (11.8-15.2) gm/dl Hct 36.2 (35.5-45.6) % Plt Count 207 (140-440) K/mm3 Comprehensive Metabolic Panel 06/27/22 Range/Units 03:15 Sodium 139 (137-145) mmol/L Potassium 4.6 (3.6-5.0) mmol/L Chloride 108.7 H (98-107) mmol/L Carbon Dioxide 19 L (22-30) mmol/L BUN 24 H (9-20) mg/dL Creatinine 1.6 H (0.8-1.3) mg/dL Glucose 102 H (75-100) mg/dL Calcium 7.9 L (8.4-10.2) mg/dL
[2022-06-27 14:05] LABS: Hematocrit 38.4 % (35.5-45.6); Hemoglobin 12.4 gm/dl (11.8-15.2); Mean Corpuscular HGB Conc 32 % (32-34); Mean Corpuscular Volume 81 fl (84-94); Platelet Count 207 K/mm3 (140-440); Red Blood Count 4.72 M/mm3 (3.65-5.03); Red Cell Distribution Width 17.3 % (13.2-15.2)
[2022-06-27 14:22] LABS: INR 1.34 (0.87-1.13)
[2022-06-27 14:23] LABS: Partial Thromboplastin Time 39.6 Sec. (24.2-36.6)
[2022-06-27] MEDS: LATANOPROST 0.005% OPHTH SOLN 2.5 ML OU SCH (21:13)
[2022-06-27] MEDS ORDERED: APIXABAN 2.5 MG TAB PO SCH (22:00)
[2022-06-28] MEDS: HYPROMELLOSE 0.5% OPHTH SOLN 15 ML OU SCH ×3 (05:48→22:16)
[2022-06-28 07:46] LABS: Hematocrit 36.5 % (35.5-45.6); Hemoglobin 11.8 gm/dl (11.8-15.2); Mean Corpuscular HGB Conc 32 % (32-34); Mean Corpuscular Volume 81 fl (84-94); Platelet Count 186 K/mm3 (140-440); Red Cell Distribution Width 16.7 % (13.2-15.2)
[2022-06-28 08:09] LABS: BUN/Creatinine Ratio 16; Blood Urea Nitrogen 21 mg/dL (9-20); Hemolysis Index 25; Iron 29 ug/dL (49-181); Total Iron Binding Capacity 146 mcg/dL (250-450)
--- NOTE | 2022-06-28 08:53 | Magnetic Resonance Report ---
MR MRA/MRV head wo con INDICATION / CLINICAL INFORMATION: 82 years Male; cva, weakness, ams. TECHNIQUE: 3-D time of flight. NASCET type criteria used to evaluate stenoses. Some motion artifact. COMPARISON: None available. FINDINGS: INTERNAL CAROTID ARTERIES: No significant narrowing appreciated. VERTEBROBASILAR SYSTEM: No significant narrowing appreciated. DISTAL BRANCHES: Distal branches of the anterior, middle, and posterior cerebral arteries are fairly symmetric in appearance and number, but are relatively poorly visualized because of motion. Hypoplastic P1 segment noted on the left, which is normal variant. ANEURYSM: None identified. IMPRESSION: No significant abnormality on this limited MRA of the brain. Signer Name: Ricardo Campbell MD, III Signed: 06/28/2022 8:48 AM Workstation Name: [id number]
[2022-06-28] MEDS: TAMSULOSIN 0.4 MG CAP PO SCH (09:28)
[2022-06-28] MEDS: ASPIRIN 81 MG TAB CHEW PO SCH (09:28)
[2022-06-28] MEDS: SENNOSIDES 8.6 MG TAB PO SCH ×2 (09:28→22:17)
[2022-06-28] MEDS: MIDODRINE 5 MG TAB PO SCH ×3 (09:28→16:05)
[2022-06-28] MEDS: DOCUSATE SODIUM 100 MG CAP PO SCH ×2 (09:28→22:15)
--- NOTE | 2022-06-28 11:23 | Progress Note ---
Assessment and Plan - Patient Problems (1) Atrial fibrillation Current Visit: Yes Status: Acute Plan to address problem: 82-year-old man who presents with altered mental status and is undergoing neurological work-up for possible CVA, presented with abnormal ECG that shows atrial fibrillation, well-controlled ventricular rate, unknown chronicity. 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 With regards to management of atrial fibrillation, he will ultimately benefit from low-dose oral anticoagulation when his neurological status permits. There is no indication for AV hector blocking agents, patient is rate controlled at baseline. We have requested a copy of his previous ECG from his primary care doctor's office, to assess chronicity of his atrial fibrillation and bundle branch block abnormality on his ECG. Neurology to advise on timing of initiation of oral anticoagulation with a NOAC. Subjective Date of service: 06/28/22 Principal diagnosis: CVA, atrial fibrillation Interval history: Patient is comfortable in no acute respiratory distress. On utilization supervisor, there is atrial fibrillation, well-controlled ventricular rate. Objective Vital Signs Temp Pulse Pulse Resp BP Pulse Ox 06/28/22 08:11 98.1 F 76 18 96/55 100 06/28/22 04:00 65 06/28/22 03:09 98.1 F 75 19 104/56 98 06/28/22 00:00 78 06/27/22 23:07 98.4 F 61 18 94/46 99 06/27/22 22:38 98 06/27/22 21:00 84 18 97/57 99 06/27/22 20:50 82 36 H 93/56 96 06/27/22 20:40 86 26 H 93/56 97 06/27/22 20:00 98.3 F 88 88 40 H 91/51 99 06/27/22 19:00 71 24 95/48 95 06/27/22 18:00 79 27 H 103/52 96 06/27/22 17:00 74 35 H 97/52 97 06/27/22 16:16 78 40 H 83/54 99 06/27/22 16:10 84 42 H 83/54 98 06/27/22 16:05 77 22 83/54 97 06/27/22 16:00 98 F 68 80 34 H 69/48 98 06/27/22 15:56 77 24 80/53 99 06/27/22 15:50 68 29 H 80/53 100 06/27/22 15:46 68 38 H 80/53 99 06/27/22 15:42 86 06/27/22 15:40 80 27 H 80/53 98 06/27/22 15:36 79 22 80/53 97 06/27/22 15:30 73 22 80/53 98 06/27/22 15:26 78 32 H 80/53 98 06/27/22 15:20 85 39 H 80/53 98 06/27/22 15:00 63 15 80/53 90 06/27/22 14:30 72 25 H 90/57 98 06/27/22 14:16 85 24 90/57 93 06/27/22 14:00 85 24 86/56 100 06/27/22 13:46 85 26 H 87/54 100 06/27/22 13:30 66 25 H 87/54 100 06/27/22 13:16 72 34 H 87/54 99 06/27/22 13:00 82 21 87/54 98 06/27/22 12:46 75 23 92/50 99 06/27/22 12:30 73 29 H 92/50 98 06/27/22 12:16 68 29 H 92/50 98 06/27/22 12:00 98.2 F 69 81 20 92/50 98 06/27/22 11:46 73 16 93/54 99 06/27/22 11:30 69 33 H 93/54 99 - Physical Examination General: No Apparent Distress HEENT: Positive: PERRL Neck: Positive: neck supple Cardiac: Positive: irregularly irregular Lungs: Positive: Decreased Breath Sounds Neuro: Positive: Weakness (Generalized lethargy, nonfocal) Abdomen: Positive: Soft Skin: Positive: Clear Extremities: Absent: edema - Labs and Meds Coagulation 06/27/22 Range/Units 12:50 PT 18.2 H (12.2-14.9) Sec. INR 1.34 H (0.87-1.13) APTT 39.6 H (24.2-36.6) Sec. CBC 06/27/22 06/28/22 Range/Units 12:50 07:05 WBC 9.2 7.7 (4.5-11.0) K/mm3 RBC 4.72 4.50 (3.65-5.03) M/mm3 Hgb 12.4 11.8 (11.8-15.2) gm/dl Hct 38.4 36.5 (35.5-45.6) % Plt Count 207 186 (140-440) K/mm3 Comprehensive Metabolic Panel 06/27/22 06/28/22 Range/Units 12:50 07:05 Sodium 137 (137-145) mmol/L Potassium 4.5 (3.6-5.0) mmol/L Chloride 109.8 H (98-107) mmol/L Carbon Dioxide 16 L (22-30) mmol/L BUN 21 H (9-20) mg/dL Creatinine 1.4 H 1.3 (0.8-1.3) mg/dL Glucose 99 (75-100) mg/dL Calcium 8.0 L (8.4-10.2) mg/dL
--- NOTE | 2022-06-28 11:56 | Progress Note ---
Assessment and Plan Assessment and plan: History Interval history: This is 82-year-old male with CVA (13 years ago), glaucoma, arthritis, stage IV prostate cancer currently started on bicalutamide 3 days ago presented to emergency department on 06/25 after having right-sided weakness with spasms, per family expressive aphasia, and confusion. Code stroke was called and ECG showed A. fib with bundle branch block and was noted to have hypotension. Initial CT showed previous stroke with no acute pathology. Patient was admitted to the hospitalist service with consults to telemetry neurology, CCM and cardiology for A. fib with RVR and to rule out CVA. Hospital course to date: 06/26: Patient had a MRI brain which showed subacute ischemia and MRA head/neck was obtained due to increasing renal function. Echocardiogram with bubble study pending. For hypertension patient was started on midodrine yesterday evening and given a total of 1500 mL normal saline bolus overnight. Today we administered 2 L normal saline bolus and his remains on Levophed at 2. PICC line ordered. Extensive conversation at bedside with daughter. 06/27: Off levophed, increase noted to Cr and decreased UOP therefore will give 500ml bolus. Will dc abx and transfer to tele 06/28: No overnight events. PT recommended subacute rehab. Discussed with case management for placement. Reached out to neurology regarding anticoagulation recommendation in light of subacute stroke. Patient would likely benefit from a DOAC. Assessment and plan: This is a 82-year-old male with CVA (2008), stage IV prostate cancer admitted with hypotension, A. fib RVR and CVA Neuro: Subacute CVA -Neurology consulted, appreciate recommendations -Initial CT head radiology read: Age-related atrophy and microvascular ischemic changes, large areas of encephalomalacia in multiple vascular distributions secondary to multifocal remote cortical infarctions, no acute intracranial normality -MRI brain radiology read: Subacute border zone ischemic changes in the left frontal lobe and left centrum semiovale, focal areas of subacute ischemia in the left precentral gyrus and left superior frontoparietal -MRA head/neck pending read -Lipitor, aspirin -PT/OT/ST consulted, recommendations -Echocardiogram shows no PFO -Reorientation as needed -Maintain sleep-wake cycle -Aspiration/seizure precautions -As needed analgesia -Neurochecks per protocol Cardiac: Atrial fibrillation, hypotension, h/o HFrEF -Cardiology and CCM consulted, appreciate recommendations -Per cardiology: no indication for AV hector blockers -Blood pressure monitoring per protocol -Midodrine 3 times daily -s/p Vasopressor support with levophed -Echocardiogram shows four-chamber cardiomyopathy, LVEF 35 to 40%, negative contrast bubble study Respiratory: NAD -Supplemental oxygen as needed -Pulmonary hygiene -SPO2 monitoring GI: Moderate protein calorie malnutrition -24 hours -256 mL -PPI -ST evaluation cleared for pureed diet with thins -Passed bedside swallow eval -BR: colace : Metabolic acidosis, acute kidney injury likely secondary to vasomotor nephropathy given hypotension -Given decreased UOP overnight given 500 ml bolus -Monitor intake and output -Renally dose medications -Avoid nephrotoxic medications -FeNa 0.12% -Trend BMP ID: Lactic acidosis -f/u blood culture -06/25 BC NGTD -Monitor WBC and temperature curve -s/p Rocephin x 2 Endo: NAD -Avoid hypoglycemia -Hemaglobin A1C 6.2 -Accuchecks ACHS Heme: NAD -Trend CBC -Transfuse hemoglobin less than 7 -SCDs to BLE while in bed Oncology: Stage IV Prostate -Recently started on bicalutamide as outpatient -Hem/Onc consulted, appreciate recommendations -Uric acid 4.2 -Continue supportive care #Advance care planning Disease education conducted, care plan discussed, diagnoses discussed, prognosis discussed, patient is full code, patient acknowledges understanding and agree with care plan, +30 minutes. Disposition Plan: Telemetry Total Time Spent with Patient (Minutes): 35 History Interval history: Patient seen and evaluated bedside. No acute complaints today. Resting comfortably. Hospitalist Physical - Physical exam Narrative exam: Physical Exam: VITAL SIGNS: Reviewed. GENERAL: The patient appears normally developed, Vital signs as documented. HEAD: No signs of head trauma. EYES: Pupils are equal. Extraocular motions intact. EARS: Hearing grossly intact. MOUTH: Oropharynx is normal. NECK: No adenopathy, no JVD. CHEST: Chest with clear breath sounds bilaterally. No wheezes, rales, or rhonchi. CARDIAC: Regular rate and rhythm. S1 and S2, without murmurs, gallops, or rubs. VASCULAR: No Edema. Peripheral pulses normal and equal in all extremities. ABDOMEN: Soft, non tender and non distended. No rebound or guarding, and no masses palpated. Bowel Sounds normal. MUSCULOSKELETAL: Good range of motion of all major joints. Extremities without clubbing, cyanosis or edema. NEUROLOGIC EXAM: Alert and oriented x 4. no focal sensory or strength deficits. PSYCHIATRIC: Mood normal. SKIN: detail exam as documented in skin assessment - Constitutional Vitals: Temp Pulse Resp BP Pulse Ox 97.8 F 82 17 97/55 97 06/28/22 11:36 06/28/22 11:36 06/28/22 11:36 06/28/22 11:36 06/28/22 11:36 General appearance: Present: no acute distress Results - Labs CBC & Chem 7: 06/28/22 07:05 06/28/22 07:05 Labs: Laboratory Last Values WBC 7.7 K/mm3 (4.5-11.0) 06/28/22 07:05 RBC 4.50 M/mm3 (3.65-5.03) 06/28/22 07:05 Hgb 11.8 gm/dl (11.8-15.2) 06/28/22 07:05 Hct 36.5 % (35.5-45.6) 06/28/22 07:05 MCV 81 fl (84-94) L 06/28/22 07:05 MCH 26 pg (28-32) L 06/28/22 07:05 MCHC 32 % (32-34) 06/28/22 07:05 RDW 16.7 % (13.2-15.2) H 06/28/22 07:05 Plt Count 186 K/mm3 (140-440) 06/28/22 07:05 Lymph % (Auto) 11.8 % (13.4-35.0) L 06/26/22 04:24 [place] % (Auto) 10.7 % (0.0-7.3) H 06/26/22 04:24 Eos % (Auto) 0.0 % (0.0-4.3) 06/26/22 04:24 Baso % (Auto) 0.2 % (0.0-1.8) 06/26/22 04:24 Lymph # (Auto) 1.4 K/mm3 (1.2-5.4) 06/26/22 04:24 [place] # (Auto) 1.3 K/mm3 (0.0-0.8) H 06/26/22 04:24 Eos # (Auto) 0.0 K/mm3 (0.0-0.4) 06/26/22 04:24 Baso # (Auto) 0.0 K/mm3 (0.0-0.1) 06/26/22 04:24 Seg Neutrophils % 77.3 % (40.0-70.0) H 06/26/22 04:24 Seg Neutrophils # 9.0 K/mm3 (1.8-7.7) H 06/26/22 04:24 PT 18.2 Sec. (12.2-14.9) H 06/27/22 12:50 INR 1.34 (0.87-1.13) H 06/27/22 12:50 APTT 39.6 Sec. (24.2-36.6) H 06/27/22 12:50 Sodium 137 mmol/L (137-145) 06/28/22 07:05 Potassium 4.5 mmol/L (3.6-5.0) 06/28/22 07:05 Chloride 109.8 mmol/L (98-107) H 06/28/22 07:05 Carbon Dioxide 16 mmol/L (22-30) L 06/28/22 07:05 Anion Gap 16 mmol/L 06/28/22 07:05 BUN 21 mg/dL (9-20) H 06/28/22 07:05 Creatinine 1.3 mg/dL (0.8-1.3) 06/28/22 07:05 Estimated GFR > 60 ml/min 06/28/22 07:05 BUN/Creatinine Ratio 16 % 06/28/22 07:05 Glucose 99 mg/dL (75-100) 06/28/22 07:05 POC Glucose 100 mg/dL (70-105) 06/27/22 11:37 Hemoglobin A1c 6.2 % (4-6) H 06/26/22 04:24 Lactic Acid 1.10 mmol/L (0.7-2.0) 06/28/22 07:05 Uric Acid 4.2 mg/dL (3.5-7.6) 06/26/22 14:58 Calcium 8.0 mg/dL (8.4-10.2) L 06/28/22 07:05 Magnesium 1.70 mg/dL (1.7-2.3) 06/25/22 08:23 Iron 29 ug/dL (49-181) L 06/28/22 07:05 TIBC 146 mcg/dL (250-450) L 06/28/22 07:05 Ferritin 1425.0 ng/mL (30.0-300.0) H 06/28/22 07:05 Total Bilirubin 1.20 mg/dL (0.1-1.2) 06/26/22 04:24 AST 141 units/L (5-40) H 06/26/22 04:24 ALT 31 units/L (7-56) 06/26/22 04:24 Alkaline Phosphatase 374 units/L (35-129) H 06/26/22 04:24 Ammonia 28.0 umol/L (25-60) 06/25/22 17:10 Total Protein 5.8 g/dL (6.3-8.2) L 06/26/22 04:24 Albumin 2.8 g/dL (3.9-5) L 06/26/22 04:24 Albumin/Globulin Ratio 0.9 % 06/26/22 04:24 Triglycerides 52 mg/dL (2-149) 06/26/22 04:24 Cholesterol 107 mg/dL (50-199) 06/26/22 04:24 LDL Cholesterol Direct 64 mg/dL (50-130) 06/26/22 04:24 HDL Cholesterol 42 mg/dL (40-59) 06/26/22 04:24 Cholesterol/HDL Ratio 2.54 % 06/26/22 04:24 Vitamin B12 582.9 pg/mL (211-911) 06/25/22 17:10 TSH 0.805 mlU/mL (0.270-4.200) 06/25/22 17:10 Urine Color [place] (Yellow) 06/25/22 09:24 Urine Turbidity Clear (Clear) 06/25/22 09:24 Urine pH 6.0 (5.0-7.0) 06/25/22 09:24 Ur Specific [place] 1.020 (1.003-1.030) 06/25/22 09:24 Urine Protein <30 mg dl mg/dL (Negative) 06/25/22 09:24 Urine Glucose (UA) Negative mg/dL (Negative) 06/25/22 09:24 Urine Ketones Negative mg/dL (Negative) 06/25/22 09:24 Urine Blood Negative (Negative) 06/25/22 09:24 Urine Nitrite Negative (Negative) 06/25/22 09:24 Ur Reducing Substances Not Reportable 06/25/22 09:24 Urine Bilirubin Negative (Negative) 06/25/22 09:24 Urine Ictotest Not Reportable 06/25/22 09:24 Urine Urobilinogen < 2.0 mg/dL (<2.0) 06/25/22 09:24 Ur Leukocyte Esterase Trace (Negative) 06/25/22 09:24 Urine WBC (Auto) 5.0 /HPF (0.0-6.0) 06/25/22 09:24 Urine RBC (Auto) 11.0 /HPF (0.0-6.0) 06/25/22 09:24 U Epithel Cells (Auto) 2.0 /HPF (0-13.0) 06/25/22 09:24 Urine Mucus Few /HPF 06/25/22 09:24 Urine Creatinine 286.7 mg/dL (0.1-20.0) H 06/26/22 21:30 Urine Sodium 30 mmol/L 06/26/22 21:30 Urine Opiates Screen Presumptive negative 06/25/22 14:05 Urine Methadone Screen Presumptive negative 06/25/22 14:05 Ur Barbiturates Screen Presumptive negative 06/25/22 14:05 Ur Phencyclidine Scrn Presumptive negative 06/25/22 14:05 Ur Amphetamines Screen Presumptive negative 06/25/22 14:05 U Benzodiazepines Scrn Presumptive negative 06/25/22 14:05 Urine Cocaine Screen Presumptive negative 06/25/22 14:05 U Marijuana (THC) Screen Presumptive negative 06/25/22 14:05 Drugs of Abuse Note Disclamer 06/25/22 14:05 Microbiology: Microbiology 06/25/22 08:48 Peripheral/Venous Blood Culture - Preliminary NO GROWTH AFTER 48 HOURS 06/25/22 08:48 Peripheral/Venous Blood Culture - Preliminary NO GROWTH AFTER 48 HOURS Javier/IV: Voiding Method Indwelling Catheter Active Medications - Current Medications Current Medications: Generic Name Dose Route Start Last Admin Trade Name Freq PRN Reason Stop Dose Admin Acetaminophen 650 mg 06/25/22 11:23 Acetaminophen 325 Mg Tab PO Q4H PRN Pain, Mild (1-3) Albuterol 2.5 mg 06/25/22 11:23 Albuterol 2.5 Mg/3 Ml Nebu IH Q3HRT PRN Shortness Of Breath Apixaban 2.5 mg 07/11/22 10:00 Apixaban 2.5 Mg Tab PO Q12HR [facility] Protocol Artificial Tears 2 drops 06/25/22 22:00 06/28/22 05:48 Hypromellose 0.5% Ophth Soln 15 Ml OU Not Given Q8HR [facility] Aspirin 81 mg 06/28/22 10:00 06/28/22 09:28 Aspirin 81 Mg Tab Chew PO 81 mg QDAY [facility] Administration Atorvastatin Calcium 40 mg 06/25/22 22:00 06/27/22 21:15 Atorvastatin 40 Mg Tab PO 40 mg QHS [facility] Administration Bisacodyl 10 mg 06/25/22 11:23 Bisacodyl 10 Mg Rect Supp GA QDAY PRN Constipation Docusate Sodium 100 mg 06/26/22 22:00 06/28/22 09:28 Docusate Sodium 100 Mg Cap PO Not Given BID [facility] Latanoprost 1 drops 06/27/22 22:00 06/27/22 21:13 Latanoprost 0.005% Ophth Soln 2.5 Ml OU 1 drops QHS [facility] Administration Magnesium Hydroxide 30 ml 06/25/22 11:23 Magnesium Hydroxide (Mom) Oral Liqd Udc PO Q4H PRN Constipation Metoclopramide HCl 10 mg 06/25/22 11:23 Metoclopramide 10 Mg Tab PO Q6H PRN Nausea And Vomiting Midodrine 10 mg 06/25/22 16:16 06/28/22 09:28 Midodrine 5 Mg Tab PO 10 mg TID@0800,1200,1600 [facility] Administration Naloxone HCl 0.1 mg 06/25/22 11:23 Naloxone 0.4 Mg/1 Ml Inj IV Q2MIN PRN Res Rate </= 8 or 02 SAT < 92% Ondansetron HCl 4 mg 06/25/22 11:23 Ondansetron 4 Mg/2 Ml Inj IV Q8H PRN Nausea And Vomiting Oxycodone/Acetaminophen 1 tab 06/25/22 11:23 Oxycodone /Acetaminophen 5-325mg Tab PO Q6H PRN Pain, Moderate (4-6) Promethazine HCl 25 mg 06/25/22 11:23 Promethazine 25 Mg Rect Supp GA Q6H PRN Nausea And Vomiting Senna 8.6 mg 06/25/22 22:00 06/28/22 09:28 Sennosides 8.6 Mg Tab PO Not Given BID RAMEZ Sodium Chloride 10 ml 06/25/22 22:00 06/28/22 09:28 Sodium Chloride 0.9% 10 Ml Flush Syringe IV 10 ml BID RAMEZ Administration Sodium Chloride 10 ml 06/25/22 11:23 Sodium Chloride 0.9% 10 Ml Flush Syringe IV PRN PRN LINE FLUSH Tamsulosin HCl 0.4 mg 06/26/22 10:00 06/28/22 09:28 Tamsulosin 0.4 Mg Cap PO 0.4 mg QDAY RAMEZ Administration Nutrition/Malnutrition Assess - Dietary Evaluation Nutrition/Malnutrition Findings: Nutrition Notes Start: 06/25/22 18:00 Freq: Status: Active Protocol: Document 06/26/22 14:43 HEATHER (Rec: 06/26/22 15:10 HEATHER [id number]) Nutrition Notes Initial or Follow up Brief Note Current Diagnosis Hypertension,Malnutrition, Stroke Other Pertinent Diagnosis Metabolic Encephalopathy & Acidosis, Atrial Fibrilation, SIRS, Prostate Can Current Diet Cardiac Diet (since D 06/26). Height 5 ft 11 in Weight 73.9 kg [place] Body Weight (kg) 78.18 BMI 22.7 Intake Prior to Admission Poor Weight change and time frame Pt denies having loss body weight [employer]. 2.476 Kg body weight loss in 1 day reported. Weight Status Appropriate Subjective/Other Information RD consult for skin risk assessment. Still no reports available on Pt's PO intake of meals at the time, will assess at F/U. Pt is on Room Air, O2 saturation @ 98%, according to Physical Assessment History notes. Pt presents an unspecified area of concern in the sacral area -apparently healing-, according to Physical Assessment History notes. Percent of energy/protein needs met: Prescribed Cardiac Diet provides for energy/protein needs (2,230 Kcal/85 g) during LOS. Is patient on ventilator? No Is Patient Ambulatory and/or Out of Bed Yes REE-([place]-St. Jeor-ambulatory/OOB) [ [id number] [id number]] Kcal/Kg value to use for calculation 29 Approximate Energy Requirements Using 2143 kcal/Kg Calculation Used for Recommendations Kcal/kg Additional Notes Protein: 1-1.2 g/Kg ABW; 76-91 g/day. Fluids: 1 ml/Kcal, or as per MD. Nutrition Intervention Change Diet Order: Change to Cardiac Diet. Follow-Up By: 07/03/22 Additional Comments Continue monitoring food tolerance, %PO intake of meals , and BM.
--- NOTE | 2022-06-28 12:29 | Progress Note ---
Assessment and Plan 82 y/o male with prior history of stroke, presents with several days of stroke like symptoms that have progressed, and found to be hypotensive. 06/28/22: Will sign off. Call if questions. 06/27/22: Off pressors. Had depressed EF so not sure what baseline BP will be. Cardiology awaiting recs from [place]. Clinically stable, will transfer to [facility]. Agree with more fluids but if renal function continues to worsen, will need nephrology consult. Will sign off once out of unit. 1. Cards-despite depressed EF, patient still on room air with good sats despite volume challenges yesterday. Likely needs more. Will give at least 2 more liter boluses today and reassess. Given new information of CHF, doubt patient's blood pressure is normal at baseline. Will change parameters for weaning pressors to maps of 55 or greater as long as mental state does not become compromised. Follow up cards recs for today. 2. Renal- bump in Cr to 1.5 from 1.3 on yesterday. Still with urine output. Would like to give more volume. Will send urine lytes as well. If continues to worsen, renal ultrasound and renal consult. 3. neuro- follow up MRI results from today and any new neuro recs 4. Prophylaxis 5. Guarded prognosis CCT 31 minutes. Subjective Date of service: 06/28/22 Principal diagnosis: CVA, atrial fibrillation Interval history: Successful transfer out of unit. remains on room air. Objective - Constitutional Vitals: Vital Signs - 12hr 06/28/22 06/28/22 06/28/22 03:09 04:00 08:11 Temperature 98.1 F 98.1 F Pulse Rate 75 65 76 Respiratory 19 18 Rate Blood Pressure 104/56 96/55 O2 Sat by Pulse 98 100 Oximetry 06/28/22 06/28/22 06/28/22 09:10 11:36 12:00 Temperature 98.1 F 97.8 F Pulse Rate 82 73 Respiratory 17 17 Rate Blood Pressure 97/55 O2 Sat by Pulse 97 Oximetry - Labs CBC & Chem 7: 06/28/22 07:05 06/28/22 07:05 Labs: Abnormal lab results 06/27/22 06/27/22 06/27/22 Range/Units 12:50 12:50 12:50 MCV 81 L (84-94) fl MCH 26 L (28-32) pg RDW 17.3 H (13.2-15.2) % PT 18.2 H (12.2-14.9) Sec. INR 1.34 H (0.87-1.13) APTT 39.6 H (24.2-36.6) Sec. Chloride (98-107) mmol/L Carbon Dioxide (22-30) mmol/L BUN (9-20) mg/dL Creatinine 1.4 H (0.8-1.3) mg/dL Calcium (8.4-10.2) mg/dL Iron (49-181) ug/dL TIBC (250-450) mcg/dL Ferritin (30.0-300.0) ng/mL 06/28/22 06/28/22 06/28/22 Range/Units 07:05 07:05 07:05 MCV 81 L (84-94) fl MCH 26 L (28-32) pg RDW 16.7 H (13.2-15.2) % PT (12.2-14.9) Sec. INR (0.87-1.13) APTT (24.2-36.6) Sec. Chloride 109.8 H (98-107) mmol/L Carbon Dioxide 16 L (22-30) mmol/L BUN 21 H (9-20) mg/dL Creatinine (0.8-1.3) mg/dL Calcium 8.0 L (8.4-10.2) mg/dL Iron 29 L (49-181) ug/dL TIBC 146 L (250-450) mcg/dL Ferritin 1425.0 H (30.0-300.0) ng/mL Medications & Allergies - Medications Allergies/Adverse Reactions: Allergies No Known Allergies Allergy (Verified 06/25/22 08:03) Home Medications: Home Medications Medication Instructions Recorded Confirmed Last Taken Type Bicalutamide [Casodex] 50 mg PO DAILY 06/25/22 06/25/22 06/24/22 History Simvastatin 20 mg PO DAILY 06/25/22 06/25/22 06/24/22 History Tamsulosin [Flomax] 0.4 mg PO QDAY 06/25/22 06/25/22 06/24/22 History lisinopriL [Lisinopril] 20 mg PO DAILY 06/25/22 06/25/2206/24/22 History Active Medications: Generic Name Dose Route Start Last Admin Trade Name Freq PRN Reason Stop Dose Admin Acetaminophen 650 mg 06/25/22 11:23 Acetaminophen 325 Mg Tab PO Q4H PRN Pain, Mild (1-3) Albuterol 2.5 mg 06/25/22 11:23 Albuterol 2.5 Mg/3 Ml Nebu IH Q3HRT PRN Shortness Of Breath Apixaban 2.5 mg 07/11/22 10:00 Apixaban 2.5 Mg Tab PO Q12HR [facility] Protocol Artificial Tears 2 drops 06/25/22 22:00 06/28/22 05:48 Hypromellose 0.5% Ophth Soln 15 Ml OU Not Given Q8HR [facility] Aspirin 81 mg 06/28/22 10:00 06/28/22 09:28 Aspirin 81 Mg Tab Chew PO 81 mg QDAY RAMEZ Administration Atorvastatin Calcium 40 mg 06/25/22 22:00 06/27/22 21:15 Atorvastatin 40 Mg Tab PO 40 mg QHS [facility] Administration Bisacodyl 10 mg 06/25/22 11:23 Bisacodyl 10 Mg Rect Supp [place] QDAY PRN Constipation Docusate Sodium 100 mg 06/26/22 22:00 06/28/22 09:28 Docusate Sodium 100 Mg Cap PO Not Given BID [facility] Latanoprost 1 drops 06/27/22 22:00 06/27/22 21:13 Latanoprost 0.005% Ophth Soln 2.5 Ml OU 1 drops QHS [facility] Administration Magnesium Hydroxide 30 ml 06/25/22 11:23 Magnesium Hydroxide (Mom) Oral Liqd Udc PO Q4H PRN Constipation Metoclopramide HCl 10 mg 06/25/22 11:23 Metoclopramide 10 Mg Tab PO Q6H PRN Nausea And Vomiting Midodrine 10 mg 06/25/22 16:16 06/28/22 09:28 Midodrine 5 Mg Tab PO 10 mg TID@0800,1200,1600 [facility] Administration Naloxone HCl 0.1 mg 06/25/22 11:23 Naloxone 0.4 Mg/1 Ml Inj IV Q2MIN PRN Res Rate </= 8 or 02 SAT < 92% Ondansetron HCl 4 mg 06/25/22 11:23 Ondansetron 4 Mg/2 Ml Inj IV Q8H PRN Nausea And Vomiting Oxycodone/Acetaminophen 1 tab 06/25/22 11:23 Oxycodone /Acetaminophen 5-325mg Tab PO Q6H PRN Pain, Moderate (4-6) Promethazine HCl 25 mg 06/25/22 11:23 Promethazine 25 Mg Rect Supp [place] Q6H PRN Nausea And Vomiting Senna 8.6 mg 06/25/22 22:00 06/28/22 09:28 Sennosides 8.6 Mg Tab PO Not Given BID RAMEZ Sodium Chloride 10 ml 06/25/22 22:00 06/28/22 09:28 Sodium Chloride 0.9% 10 Ml Flush Syringe IV 10 ml BID RAMEZ Administration Sodium Chloride 10 ml 06/25/22 11:23 Sodium Chloride 0.9% 10 Ml Flush Syringe IV PRN PRN LINE FLUSH Tamsulosin HCl 0.4 mg 06/26/22 10:00 06/28/22 09:28 Tamsulosin 0.4 Mg Cap PO 0.4 mg QDAY RAMEZ Administration
[2022-06-28] MEDS: LATANOPROST 0.005% OPHTH SOLN 2.5 ML OU SCH (22:16)
--- NOTE | 2022-06-29 02:47 | Progress Note ---
Assessment and Plan 82 yo right-handed male with cva 10 years ago (occasional difficulty with speech), stage IV prostate cancer, glaucoma with progressive vision loss, arthritis, who presents with initiation of bicalutamide recently and noted with new onset of weakness of the right arm (LKNormal is unclear but may be evening of 06/21/22 or the morning of 06/22/22). 1. Acute Ischemic Stroke: ASA 81 mg PO qday, CUS ordered to confirm/deny evid ence of LICA stenosis/occlusion (?hypotension-induced infarction vs secondary to cardiac event), TTEcho w/ EF 35-40%, telemetry, NIHSS q4 hours; SBP goal 160-200 mmHg and DBP 80-100 mmHg until CUS results available. Statin therapy for a goal LDL of 70, when patient passes swallow evaluation. PT/OT/ST/Swallow evaluation. Long-term risk-factor modification, including a strict diet/exercise regimen for secondary stroke prophylaxis. Stroke education prior to discharge. 2. Hypotension (Relative) - ideally, in the setting of stroke, goal SBP 160-200 mmHg and DBP 80-100 mmHg until CUS results available; management per primary team. 3. Dysarthria / Dysphagia - st / swallow evaluation/monitoring. 4. Right Arm Weakness - pt/ot evaluation/monitoring. 5. Unsteady Gait - pt/ot evaluation/monitoring. 6. Vision Loss - low vision ot evaluation/monitoring. 7. Prostate Cancer - consider alternative therapy to bicaluatmide if true culprit for afib; per oncology. 8. Paroxysmal Afib - if CUS is unremarkable, recommend long-term cardiac mo nitoring to confirm evidence of paroxysmal afib for secondary stroke prophylaxis. 9. Metabolic Encephalopathy - in the setting of underlying fever, hypotension, transaminitis; r/o underlying infectious, toxic etiology per primary team. 10. Aspiration / Fall precautions. Zev Samuel MD [facility] [id number] Subjective Date of service: 06/28/22 Principal diagnosis: CVA, atrial fibrillation Interval history: MR Brain reveales left watshed-type subacute infarct c/w clinical history. Appreciate Cardiology input. Objective - Exam Narrative Exam: Patient not seen. - Vital Sign Vital Signs - 12hr 06/28/22 06/28/22 06/28/22 16:00 16:05 19:04 Temperature 97.8 F 98.1 F Pulse Rate 86 77 84 Respiratory 17 16 Rate Respiratory Rate [Right Arm ] Blood Pressure 96/62 91/56 O2 Sat by Pulse 100 98 Oximetry 06/28/22 06/28/22 22:00 23:19 Temperature 98.0 F Pulse Rate 67 Respiratory 18 Rate Respiratory 20 Rate [Right Arm ] Blood Pressure 94/55 O2 Sat by Pulse 100 Oximetry - Laboratory Findings CBC and BMP: 06/28/22 07:05 06/28/22 07:05 Abnormal Lab Findings: Abnormal Labs 06/25/22 06/25/22 06/25/22 08:23 08:23 08:23 WBC MCV 83 L MCH 26 L RDW 16.4 H Lymph % (Auto) [place] % (Auto) [place] # (Auto) Seg Neutrophils % Seg Neutrophils # PT 17.4 H INR 1.27 H APTT Sodium 134 L Chloride 108.7 H Carbon Dioxide 16 L BUN Creatinine Glucose POC Glucose Hemoglobin A1c Lactic Acid Calcium 7.2 L Iron TIBC Ferritin AST 170 H Alkaline Phosphatase 356 H Total Protein 5.4 L Albumin 2.5 L Urine Creatinine 06/25/22 06/26/22 06/26/22 17:10 04:24 04:24 WBC 11.7 H MCV 82 L MCH 26 L RDW 16.9 H Lymph % (Auto) 11.8 L [place] % (Auto) 10.7 H [place] # (Auto) 1.3 H Seg Neutrophils % 77.3 H Seg Neutrophils # 9.0 H PT INR APTT Sodium 133 L Chloride Carbon Dioxide 18 L BUN Creatinine 1.5 H Glucose 109 H POC Glucose Hemoglobin A1c Lactic Acid 2.50 H* Calcium 7.8 L Iron TIBC Ferritin AST 141 H Alkaline Phosphatase 374 H Total Protein 5.8 L Albumin 2.8 L Urine Creatinine 06/26/22 06/26/22 06/26/22 04:24 07:20 21:30 WBC MCV MCH RDW Lymph % (Auto) [place] % (Auto) [place] # (Auto) Seg Neutrophils % Seg Neutrophils # PT INR APTT Sodium Chloride Carbon Dioxide BUN Creatinine Glucose POC Glucose 109 H Hemoglobin A1c 6.2 H Lactic Acid Calcium Iron TIBC Ferritin AST Alkaline Phosphatase Total Protein Albumin Urine Creatinine 286.7 H 06/27/22 06/27/22 06/27/22 03:15 03:15 12:50 WBC MCV 81 L 81 L MCH 27 L 26 L RDW 16.8 H 17.3 H Lymph % (Auto) [place] % (Auto) [place] # (Auto) Seg Neutrophils % Seg Neutrophils # PT INR APTT Sodium Chloride 108.7 H Carbon Dioxide 19 L BUN 24 H Creatinine 1.6 H Glucose 102 H POC Glucose Hemoglobin A1c Lactic Acid Calcium 7.9 L Iron TIBC Ferritin AST Alkaline Phosphatase Total Protein Albumin Urine Creatinine 06/27/22 06/27/22 06/28/22 12:50 12:50 07:05 WBC MCV 81 L MCH 26 L RDW 16.7 H Lymph % (Auto) [place] % (Auto) [place] # (Auto) Seg Neutrophils % Seg Neutrophils # PT 18.2 H INR 1.34 H APTT 39.6 H Sodium Chloride Carbon Dioxide BUN Creatinine 1.4 H Glucose POC Glucose Hemoglobin A1c Lactic Acid Calcium Iron TIBC Ferritin AST Alkaline Phosphatase Total Protein Albumin Urine Creatinine 06/28/22 06/28/22 07:05 07:05 WBC MCV MCH RDW Lymph % (Auto) [place] % (Auto) [place] # (Auto) Seg Neutrophils % Seg Neutrophils # PT INR APTT Sodium Chloride 109.8 H Carbon Dioxide 16 L BUN 21 H Creatinine Glucose POC Glucose Hemoglobin A1c Lactic Acid Calcium 8.0 L Iron 29 L TIBC 146 L Ferritin 1425.0 H AST Alkaline Phosphatase Total Protein Albumin Urine Creatinine
[2022-06-29 06:00] LABS: Hematocrit 34.2 % (35.5-45.6); Mean Corpuscular HGB Conc 32 % (32-34); Mean Corpuscular Volume 82 fl (84-94); Platelet Count 184 K/mm3 (140-440); Red Blood Count 4.16 M/mm3 (3.65-5.03); Red Cell Distribution Width 16.9 % (13.2-15.2)
--- NOTE | 2022-06-29 07:31 | Progress Note ---
Assessment and Plan Assessment and plan: History Interval history: This is 82-year-old male with CVA (13 years ago), glaucoma, arthritis, stage IV prostate cancer currently started on bicalutamide 3 days ago presented to emergency department on 06/25 after having right-sided weakness with spasms, per family expressive aphasia, and confusion. Code stroke was called and ECG showed A. fib with bundle branch block and was noted to have hypotension. Initial CT showed previous stroke with no acute pathology. Patient was admitted to the hospitalist service with consults to telemetry neurology, CCM and cardiology for A. fib with RVR and to rule out CVA. Hospital course to date: 06/26: Patient had a MRI brain which showed subacute ischemia and MRA head/neck was obtained due to increasing renal function. Echocardiogram with bubble study pending. For hypertension patient was started on midodrine yesterday evening and given a total of 1500 mL normal saline bolus overnight. Today we administered 2 L normal saline bolus and his remains on Levophed at 2. PICC line ordered. Extensive conversation at bedside with daughter. 06/27: Off levophed, increase noted to Cr and decreased UOP therefore will give 500ml bolus. Will dc abx and transfer to tele 06/28: No overnight events. PT recommended subacute rehab. Discussed with case management for placement. Reached out to neurology regarding anticoagulation recommendation in light of subacute stroke. Patient would likely benefit from a DOAC. 06/29: Neurology ordered Carotid US to rule out atheroembolic plaque from carotid. If not occlusions noted, recommends OP holter monitor. No recommendation for DOAC at this time. Currently dispo for patient is subacute rehab. Will d/w Cm regarding placement. Assessment and plan: This is a 82-year-old male with CVA (2008), stage IV prostate cancer admitted wi th hypotension, A. fib RVR and CVA Neuro: Subacute CVA -Neurology consulted, appreciate recommendations -Initial CT head radiology read: Age-related atrophy and microvascular ischemic changes, large areas of encephalomalacia in multiple vascular distributions secondary to multifocal remote cortical infarctions, no acute intracranial normality -MRI brain radiology read: Subacute border zone ischemic changes in the left frontal lobe and left centrum semiovale, focal areas of subacute ischemia in the left precentral gyrus and left superior frontoparietal -MRA head/neck pending read -Lipitor, aspirin -PT/OT/ST consulted, recommendations -Echocardiogram shows no PFO -Reorientation as needed -Maintain sleep-wake cycle -Aspiration/seizure precautions -As needed analgesia -Neurochecks per protocol Cardiac: Atrial fibrillation, hypotension, h/o HFrEF -Cardiology and CCM consulted, appreciate recommendations -Per cardiology: no indication for AV hector blockers -Blood pressure monitoring per protocol -Midodrine 3 times daily -s/p Vasopressor support with levophed -Echocardiogram shows four-chamber cardiomyopathy, LVEF 35 to 40%, negative con trast bubble study Respiratory: NAD -Supplemental oxygen as needed -Pulmonary hygiene -SPO2 monitoring GI: Moderate protein calorie malnutrition -24 hours -256 mL -PPI -ST evaluation cleared for pureed diet with thins -Passed bedside swallow eval -BR: colace : Metabolic acidosis, acute kidney injury likely secondary to vasomotor n ephropathy given hypotension -Given decreased UOP overnight given 500 ml bolus -Monitor intake and output -Renally dose medications -Avoid nephrotoxic medications -FeNa 0.12% -Trend BMP ID: Lactic acidosis -f/u blood culture -06/25 NGTD -Monitor WBC and temperature curve -s/p Rocephin x 2 Endo: NAD -Avoid hypoglycemia -Hemaglobin A1C 6.2 -Accuchecks ACHS Heme: NAD -Trend CBC -Transfuse hemoglobin less than 7 -SCDs to BLE while in bed Oncology: Stage IV Prostate -Recently started on bicalutamide as outpatient -Hem/Onc consulted, appreciate recommendations -Uric acid 4.2 -Continue supportive care #Advance care planning Disease education conducted, care plan discussed, diagnoses discussed, prognosis discussed, patient is full code, patient acknowledges understanding and agree with care plan, +30 minutes. Disposition Plan: tele Total Time Spent with Patient (Minutes): 35 History Interval history: Patient seen and evaluated bedside. No acute complaints today. Resting comfo rtably at bedside Hospitalist Physical - Physical exam Narrative exam: Physical Exam: VITAL SIGNS: Reviewed. GENERAL: The patient appears normally developed, Vital signs as documented. HEAD: No signs of head trauma. EYES: Pupils are equal. Extraocular motions intact. EARS: Hearing grossly intact. MOUTH: Oropharynx is normal. NECK: No adenopathy, no JVD. CHEST: Chest with clear breath sounds bilaterally. No wheezes, rales, or rhonchi. CARDIAC: Regular rate and rhythm. S1 and S2, without murmurs, gallops, or rubs. VASCULAR: No Edema. Peripheral pulses normal and equal in all extremities. ABDOMEN: Soft, non tender and non distended. No rebound or guarding, and no masses palpated. Bowel Sounds normal. MUSCULOSKELETAL: Good range of motion of all major joints. Extremities without clubbing, cyanosis or edema. NEUROLOGIC EXAM: Alert and oriented x 4. no focal sensory or strength deficits. PSYCHIATRIC: Mood normal. SKIN: detail exam as documented in skin assessment - Constitutional Vitals: Temp Pulse Resp BP Pulse Ox 98.3 F 75 17 107/67 98 06/29/22 07:00 06/29/22 07:00 06/29/22 07:00 06/29/22 07:00 06/29/22 07:00 General appearance: Present: no acute distress Results - Labs CBC & Chem 7: 06/29/22 04:30 06/28/22 07:05 Labs: Laboratory Last Values WBC 5.9 K/mm3 (4.5-11.0) 06/29/22 04:30 RBC 4.16 M/mm3 (3.65-5.03) 06/29/22 04:30 Hgb 11.0 gm/dl (11.8-15.2) L 06/29/22 04:30 Hct 34.2 % (35.5-45.6) L 06/29/22 04:30 MCV 82 fl (84-94) L 06/29/22 04:30 MCH 26 pg (28-32) L 06/29/22 04:30 MCHC 32 % (32-34) 06/29/22 04:30 RDW 16.9 % (13.2-15.2) H 06/29/22 04:30 Plt Count 184 K/mm3 (140-440) 06/29/22 04:30 Lymph % (Auto) 11.8 % (13.4-35.0) L 06/26/22 04:24 [place] % (Auto) 10.7 % (0.0-7.3) H 06/26/22 04:24 Eos % (Auto) 0.0 % (0.0-4.3) 06/26/22 04:24 Baso % (Auto) 0.2 % (0.0-1.8) 06/26/22 04:24 Lymph # (Auto) 1.4 K/mm3 (1.2-5.4) 06/26/22 04:24 [place] # (Auto) 1.3 K/mm3 (0.0-0.8) H 06/26/22 04:24 Eos # (Auto) 0.0 K/mm3 (0.0-0.4) 06/26/22 04:24 Baso # (Auto) 0.0 K/mm3 (0.0-0.1) 06/26/22 04:24 Seg Neutrophils % 77.3 % (40.0-70.0) H 06/26/22 04:24 Seg Neutrophils # 9.0 K/mm3 (1.8-7.7) H 06/26/22 04:24 PT 18.2 Sec. (12.2-14.9) H 06/27/22 12:50 INR 1.34 (0.87-1.13) H 06/27/22 12:50 APTT 39.6 Sec. (24.2-36.6) H 06/27/22 12:50 Sodium 137 mmol/L (137-145) 06/28/22 07:05 Potassium 4.5 mmol/L (3.6-5.0) 06/28/22 07:05 Chloride 109.8 mmol/L (98-107) H 06/28/22 07:05 Carbon Dioxide 16 mmol/L (22-30) L 06/28/22 07:05 Anion Gap 16 mmol/L 06/28/22 07:05 BUN 21 mg/dL (9-20) H 06/28/22 07:05 Creatinine 1.3 mg/dL (0.8-1.3) 06/28/22 07:05 Estimated GFR > 60 ml/min 06/28/22 07:05 BUN/Creatinine Ratio 16 % 06/28/22 07:05 Glucose 99 mg/dL (75-100) 06/28/22 07:05 POC Glucose 100 mg/dL (70-105) 06/27/22 11:37 Hemoglobin A1c 6.2 % (4-6) H 06/26/22 04:24 Lactic Acid 1.10 mmol/L (0.7-2.0) 06/28/22 07:05 Uric Acid 4.2 mg/dL (3.5-7.6) 06/26/22 14:58 Calcium 8.0 mg/dL (8.4-10.2) L 06/28/22 07:05 Magnesium 1.70 mg/dL (1.7-2.3) 06/25/22 08:23 Iron 29 ug/dL (49-181) L 06/28/22 07:05 TIBC 146 mcg/dL (250-450) L 06/28/22 07:05 Ferritin 1425.0 ng/mL (30.0-300.0) H 06/28/22 07:05 Total Bilirubin 1.20 mg/dL (0.1-1.2) 06/26/22 04:24 AST 141 units/L (5-40) H 06/26/22 04:24 ALT 31 units/L (7-56) 06/26/22 04:24 Alkaline Phosphatase 374 units/L (35-129) H 06/26/22 04:24 Ammonia 28.0 umol/L (25-60) 06/25/22 17:10 Total Protein 5.8 g/dL (6.3-8.2) L 06/26/22 04:24 Albumin 2.8 g/dL (3.9-5) L 06/26/22 04:24 Albumin/Globulin Ratio 0.9 % 06/26/22 04:24 Triglycerides 52 mg/dL (2-149) 06/26/22 04:24 Cholesterol 107 mg/dL (50-199) 06/26/22 04:24 LDL Cholesterol Direct 64 mg/dL (50-130) 06/26/22 04:24 HDL Cholesterol 42 mg/dL (40-59) 06/26/22 04:24 Cholesterol/HDL Ratio 2.54 % 06/26/22 04:24 Vitamin B12 582.9 pg/mL (211-911) 06/25/22 17:10 TSH 0.805 mlU/mL (0.270-4.200) 06/25/22 17:10 Urine Color [place] (Yellow) 06/25/22 09:24 Urine Turbidity Clear (Clear) 06/25/22 09:24 Urine pH 6.0 (5.0-7.0) 06/25/22 09:24 Ur Specific [place] 1.020 (1.003-1.030) 06/25/22 09:24 Urine Protein <30 mg dl mg/dL (Negative) 06/25/22 09:24 Urine Glucose (UA) Negative mg/dL (Negative) 06/25/22 09:24 Urine Ketones Negative mg/dL (Negative) 06/25/22 09:24 Urine Blood Negative (Negative) 06/25/22 09:24 Urine Nitrite Negative (Negative) 06/25/22 09:24 Ur Reducing Substances Not Reportable 06/25/22 09:24 Urine Bilirubin Negative (Negative) 06/25/22 09:24 Urine Ictotest Not Reportable 06/25/22 09:24 Urine Urobilinogen < 2.0 mg/dL (<2.0) 06/25/22 09:24 Ur Leukocyte Esterase Trace (Negative) 06/25/22 09:24 Urine WBC (Auto) 5.0 /HPF (0.0-6.0) 06/25/22 09:24 Urine RBC (Auto) 11.0 /HPF (0.0-6.0) 06/25/22 09:24 U Epithel Cells (Auto) 2.0 /HPF (0-13.0) 06/25/22 09:24 Urine Mucus Few /HPF 06/25/22 09:24 Urine Creatinine 286.7 mg/dL (0.1-20.0) H 06/26/22 21:30 Urine Sodium 30 mmol/L 06/26/22 21:30 Urine Opiates Screen Presumptive negative 06/25/22 14:05 Urine Methadone Screen Presumptive negative 06/25/22 14:05 Ur Barbiturates Screen Presumptive negative 06/25/22 14:05 Ur Phencyclidine Scrn Presumptive negative 06/25/22 14:05 Ur Amphetamines Screen Presumptive negative 06/25/22 14:05 U Benzodiazepines Scrn Presumptive negative 06/25/22 14:05 Urine Cocaine Screen Presumptive negative 06/25/22 14:05 U Marijuana (THC) Screen Presumptive negative 06/25/22 14:05 Drugs of Abuse Note Disclamer 06/25/22 14:05 Microbiology: Microbiology 06/25/22 08:48 Peripheral/Venous Blood Culture - Preliminary NO GROWTH AFTER 72 HOURS 06/25/22 08:48 Peripheral/Venous Blood Culture - Preliminary NO GROWTH AFTER 72 HOURS Javier/IV: Voiding Method Indwelling Catheter Active Medications - Current Medications Current Medications: Generic Name Dose Route Start Last Admin Trade Name Freq PRN Reason Stop Dose Admin Acetaminophen 650 mg 06/25/22 11:23 Acetaminophen 325 Mg Tab PO Q4H PRN Pain, Mild (1-3) Albuterol 2.5 mg 06/25/22 11:23 Albuterol 2.5 Mg/3 Ml Nebu IH Q3HRT PRN Shortness Of Breath Apixaban 2.5 mg 07/11/22 10:00 Apixaban 2.5 Mg Tab PO Q12HR [facility] Protocol Artificial Tears 2 drops 06/25/22 22:00 06/28/22 22:16 Hypromellose 0.5% Ophth Soln 15 Ml OU 2 drops Q8HR RAMEZ Administration Aspirin 81 mg 06/28/22 10:00 06/28/22 09:28 Aspirin 81 Mg Tab Chew PO 81 mg QDAY RAMEZ Administration Atorvastatin Calcium 40 mg 06/25/22 22:00 06/28/22 22:17 Atorvastatin 40 Mg Tab PO 40 mg QHS RAMEZ Administration Bisacodyl 10 mg 06/25/22 11:23 Bisacodyl 10 Mg Rect Supp AR QDAY PRN Constipation Docusate Sodium 100 mg 06/26/22 22:00 06/28/22 22:15 Docusate Sodium 100 Mg Cap PO 100 mg BID RAMEZ Administration Latanoprost 1 drops 06/27/22 22:00 06/28/22 22:16 Latanoprost 0.005% Ophth Soln 2.5 Ml OU 1 drops QHS RAMEZ Administration Magnesium Hydroxide 30 ml 06/25/22 11:23 Magnesium Hydroxide (Mom) Oral Liqd Udc PO Q4H PRN Constipation Metoclopramide HCl 10 mg 06/25/22 11:23 Metoclopramide 10 Mg Tab PO Q6H PRN Nausea And Vomiting Midodrine 10 mg 06/25/22 16:16 06/28/22 16:05 Midodrine 5 Mg Tab PO 10 mg TID@0800,1200,1600 RAMEZ Administration Naloxone HCl 0.1 mg 06/25/22 11:23 Naloxone 0.4 Mg/1 Ml Inj IV Q2MIN PRN Res Rate </= 8 or 02 SAT < 92% Ondansetron HCl 4 mg 06/25/22 11:23 Ondansetron 4 Mg/2 Ml Inj IV Q8H PRN Nausea And Vomiting Oxycodone/Acetaminophen 1 tab 06/25/22 11:23 Oxycodone /Acetaminophen 5-325mg Tab PO Q6H PRN Pain, Moderate (4-6) Promethazine HCl 25 mg 06/25/22 11:23 Promethazine 25 Mg Rect Supp AR Q6H PRN Nausea And Vomiting Senna 8.6 mg 06/25/22 22:00 06/28/22 22:17 Sennosides 8.6 Mg Tab PO 8.6 mg BID RAMEZ Administration Sodium Chloride 10 ml 06/25/22 22:00 06/28/22 22:17 Sodium Chloride 0.9% 10 Ml Flush Syringe IV 10 ml BID RAMEZ Administration Sodium Chloride 10 ml 06/25/22 11:23 Sodium Chloride 0.9% 10 Ml Flush Syringe IV PRN PRN LINE FLUSH Tamsulosin HCl 0.4 mg 06/26/22 10:00 06/28/22 09:28 Tamsulosin 0.4 Mg Cap PO 0.4 mg QDAY RAMEZ Administration Nutrition/Malnutrition Assess - Dietary Evaluation Nutrition/Malnutrition Findings: Nutrition Notes Start: 06/25/22 18:00 Freq: Status: Active Protocol: Document 06/26/22 14:43 HEATHER (Rec: 06/26/22 15:10 HEATHER [id number]) Nutrition Notes Initial or Follow up Brief Note Current Diagnosis Hypertension,Malnutrition, Stroke Other Pertinent Diagnosis Metabolic Encephalopathy & Acidosis, Atrial Fibrilation, SIRS, Prostate Can Current Diet Cardiac Diet (since D 06/26). 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 2.476 Kg body weight loss in 1 day reported. Weight Status Appropriate Subjective/Other Information RD consult for skin risk assessment. Still no reports available on Pt's PO intake of meals at the time, will assess at F/U. Pt is on Room Air, O2 saturation @ 98%, according to Physical Assessment History notes. Pt presents an unspecified area of concern in the sacral area -apparently healing-, according to Physical Assessment History notes. Percent of energy/protein needs met: Prescribed Cardiac Diet provides for energy/protein needs (2,230 Kcal/85 g) during LOS. Is patient on ventilator? No Is Patient Ambulatory and/or Out of Bed Yes REE-([place]-St. Jeor-ambulatory/OOB) [ 1899.469 NUTR.MSJOOB] Kcal/Kg value to use for calculation 29 Approximate Energy Requirements Using 2143 kcal/Kg Calculation Used for Recommendations Kcal/kg Additional Notes Protein: 1-1.2 g/Kg ABW; 76-91 g/day. Fluids: 1 ml/Kcal, or as per MD. Nutrition Intervention Change Diet Order: Change to Cardiac Diet. Follow-Up By: 07/03/22 Additional Comments Continue monitoring food tolerance, %PO intake of meals , and BM.
[2022-06-29] MEDS: HYPROMELLOSE 0.5% OPHTH SOLN 15 ML OU SCH ×3 (07:53→21:44)
[2022-06-29] MEDS: MIDODRINE 5 MG TAB PO SCH ×3 (09:09→16:37)
[2022-06-29] MEDS: DOCUSATE SODIUM 100 MG CAP PO SCH ×2 (09:10→21:44)
[2022-06-29] MEDS: SENNOSIDES 8.6 MG TAB PO SCH ×2 (09:10→21:44)
[2022-06-29] MEDS: ASPIRIN 81 MG TAB CHEW PO SCH (09:10)
[2022-06-29] MEDS: TAMSULOSIN 0.4 MG CAP PO SCH (09:10)
--- NOTE | 2022-06-29 09:16 | Progress Note ---
Assessment and Plan - Patient Problems (1) Atrial fibrillation Current Visit: Yes Status: Acute Plan to address problem: 82-year-old man who presents with altered mental status and is undergoing neurological work-up for possible CVA, presented with abnormal ECG that shows atrial fibrillation, well-controlled ventricular rate, unknown chronicity. 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 With regards to management of atrial fibrillation, he will ultimately benefit from low-dose oral anticoagulation when his neurological status permits. There is no indication for AV hector blocking agents, patient is rate controlled at baseline. We have requested a copy of his previous ECG from his primary care doctor's office, to assess chronicity of his atrial fibrillation and bundle branch block abnormality on his ECG. Neurology to advise on timing of initiation of oral anticoagulation with a NOAC. Subjective Date of service: 06/29/22 Principal diagnosis: CVA, atrial fibrillation Interval history: Patient is comfortable, no acute distress, no new cardiac complaints. Objective Vital Signs Temp Pulse Resp Resp BP Pulse Ox 06/29/22 07:00 98.3 F 75 17 107/67 98 06/29/22 03:42 97.3 F L 68 18 102/58 100 06/28/22 23:19 98.0 F 67 18 94/55 100 06/28/22 22:00 20 20 97 06/28/22 19:04 98.1 F 84 16 91/56 98 06/28/22 16:05 97.8 F 77 17 96/62 100 06/28/22 16:00 86 06/28/22 12:00 73 06/28/22 11:36 97.8 F 82 17 97/55 97 06/28/22 10:00 18 97 - Physical Examination General: No Apparent Distress HEENT: Positive: PERRL Neck: Positive: neck supple Cardiac: Positive: irregularly irregular Lungs: Positive: Decreased Breath Sounds Neuro: Positive: Weakness (Generalized lethargy, nonfocal) Abdomen: Positive: Soft Skin: Positive: Clear Extremities: Absent: edema - Labs and Meds CBC 06/29/22 Range/Units 04:30 WBC 5.9 (4.5-11.0) K/mm3 RBC 4.16 (3.65-5.03) M/mm3 Hgb 11.0 L (11.8-15.2) gm/dl Hct 34.2 L (35.5-45.6) % Plt Count 184 (140-440) K/mm3
--- NOTE | 2022-06-29 12:47 | Vascular Lab Report ---
DUPLEX DOPPLER ULTRASOUND CAROTID, BILATERAL INDICATION / CLINICAL INFORMATION: cva. COMPARISON: None available. FINDINGS: RIGHT CAROTID: Presence of the endovascular stent - PLAQUE ESTIMATE (%): < 50% - CCA velocity: 103 cm/sec. - ICA peak systolic velocity: 97 cm/sec. - ICA/CCA PSV Ratio: Less than 2 Right Vertebral Artery: Antegrade flow. LEFT CAROTID: Presence of endovascular stent - PLAQUE ESTIMATE (%): < 50% - CCA velocity: 89 cm/sec. - ICA peak systolic velocity: 102 cm/sec. - ICA/CCA PSV Ratio: Less than 2 Left Vertebral Artery: Antegrade flow. IMPRESSION: 1. Right Internal Carotid Artery: Less than 50% diameter stenosis. 2. Left Internal Carotid Artery: Less than 50% diameter stenosis. Velocity criteria are extrapolated from diameter data as defined by the Society of Radiologists in Ul trasound Consensus Conference, Radiology 2003; 229;340-346. NO STENOSIS (NORMAL) - Plaque = none; ICA PSV < 125 cm/sec; ICA/CCA PSV Ratio < 2.0 <50% STENOSIS - Plaque < 50%; ICA PSV < 125 cm/sec; ICA/CCA PSV Ratio < 2.0 50-69% STENOSIS - Plaque > 50%; ICA PSV = 125-230 cm/sec; ICA/CCA PSV Ratio = 2.0-4.0 >70% BUT <100% STENOSIS - Plaque > 50%; ICA PSV > 230 cm/sec; ICA/CCA PSV Ratio > 4.0 NEAR OCCLUSION - Plaque = visible lumen; ICA PSV = high/low/none; ICA/CCA PSV Ratio = variable TOTAL OCCLUSION - Plaque = no lumen; ICA PSV = none; ICA/CCA PSV Ratio = N/A Signer Name: Elvin Plaza DO Signed: 06/29/2022 12:43 PM Workstation Name: [id number]
[2022-06-29] MEDS: LATANOPROST 0.005% OPHTH SOLN 2.5 ML OU SCH (21:43)
[2022-06-30] MEDS: HYPROMELLOSE 0.5% OPHTH SOLN 15 ML OU SCH ×3 (06:03→21:45)
[2022-06-30] MEDS: MIDODRINE 5 MG TAB PO SCH ×3 (08:20→17:04)
--- NOTE | 2022-06-30 09:10 | Progress Note ---
Assessment and Plan Assessment and plan: This is 82-year-old male with CVA (13 years ago), glaucoma, arthritis, stage IV prostate cancer currently started on bicalutamide 3 days ago presented to emergency department on 06/25 after having right-sided weakness with spasms, per family expressive aphasia, and confusion. Code stroke was called and ECG showed A. fib with bundle branch block and was noted to have hypotension. Initial CT showed previous stroke with no acute pathology. Patient was admitted to the hospitalist service with consults to telemetry neurology, CCM and cardiology for A. fib with RVR and to rule out CVA. Hospital course to date: 06/26: Patient had a MRI brain which showed subacute ischemia and MRA head/neck was obtained due to increasing renal function. Echocardiogram with bubble study pending. For hypertension patient was started on midodrine yesterday evening and given a total of 1500 mL normal saline bolus overnight. Today we administered 2 L normal saline bolus and his remains on Levophed at 2. PICC line ordered. Extensive conversation at bedside with daughter. 06/27: Off levophed, increase noted to Cr and decreased UOP therefore will give 500ml bolus. Will dc abx and transfer to tele 06/28: No overnight events. PT recommended subacute rehab. Discussed with case management for placement. Reached out to neurology regarding anticoagulation recommendation in light of subacute stroke. Patient would likely benefit from a DOAC. 06/29: Neurology ordered Carotid US to rule out atheroembolic plaque from carotid. If not occlusions noted, recommends OP holter monitor. No recommendation for DOAC at this time. Currently dispo for patient is subacute rehab. Will d/w Cm regarding placement. 06/30: Unremarkable carotid Dopplers for occlusion. Patient will continue with o utpatient Holter monitor. Pending subacute rehab authorization. Continue to monitor. Assessment and plan: This is a 82-year-old male with CVA (2008), stage IV prostate cancer admitted with hypotension, A. fib RVR and CVA Neuro: Subacute CVA -Neurology consulted, appreciate recommendations -Initial CT head radiology read: Age-related atrophy and microvascular ischemic changes, large areas of encephalomalacia in multiple vascular distributions secondary to multifocal remote cortical infarctions, no acute intracranial normality -MRI brain radiology read: Subacute border zone ischemic changes in the left frontal lobe and left centrum semiovale, focal areas of subacute ischemia in the left precentral gyrus and left superior frontoparietal -MRA head/neck pending read -Lipitor, aspirin -PT/OT/ST consulted, recommendations -Echocardiogram shows no PFO -Reorientation as needed -Maintain sleep-wake cycle -Aspiration/seizure precautions -As needed analgesia -Neurochecks per protocol Cardiac: Atrial fibrillation, hypotension, h/o HFrEF -Cardiology and CCM consulted, appreciate recommendations -Per cardiology: no indication for AV hector blockers -Blood pressure monitoring per protocol -Midodrine 3 times daily -s/p Vasopressor support with levophed -Echocardiogram shows four-chamber cardiomyopathy, LVEF 35 to 40%, negative contrast bubble study Respiratory: NAD -Supplemental oxygen as needed -Pulmonary hygiene -SPO2 monitoring GI: Moderate protein calorie malnutrition -24 hours -256 mL -PPI -ST evaluation cleared for pureed diet with thins -Passed bedside swallow eval -BR: colace : Metabolic acidosis, acute kidney injury likely secondary to vasomotor nephropathy given hypotension -Given decreased UOP overnight given 500 ml bolus -Monitor intake and output -Renally dose medications -Avoid nephrotoxic medications -FeNa 0.12% -Trend BMP ID: Lactic acidosis -f/u blood culture -06/25 BC NGTD -Monitor WBC and temperature curve -s/p Rocephin x 2 Endo: NAD -Avoid hypoglycemia -Hemaglobin A1C 6.2 -Accuchecks ACHS Heme: NAD -Trend CBC -Transfuse hemoglobin less than 7 -SCDs to BLE while in bed Oncology: Stage IV Prostate -Recently started on bicalutamide as outpatient -Hem/Onc consulted, appreciate recommendations -Uric acid 4.2 -Continue supportive care #Advance care planning Disease education conducted, care plan discussed, diagnoses discussed, prognosis discussed, patient is full code, patient acknowledges understanding and agree with care plan, +30 minutes. Disposition Plan: Pending SNF/rehab authorization Total Time Spent with Patient (Minutes): 30 minutes History Interval history: No acute events overnight. Hospitalist Physical - Constitutional Vitals: Temp Pulse Resp BP Pulse Ox 98.3 F 73 18 118/73 100 06/30/22 08:31 06/30/22 08:31 06/30/22 03:06 06/30/22 08:31 06/30/22 08:31 General appearance: Present: no acute distress, well-nourished - EENT Eyes: Present: PERRL, EOM intact ENT: hearing intact, clear oral mucosa, dentition normal - Neck Neck: Present: supple, normal ROM - Respiratory Respiratory effort: normal Respiratory: bilateral: CTA - Cardiovascular Rhythm: regular Heart Sounds: Present: S1 & S2 - Extremities Extremities: no ischemia, pulses intact, pulses symmetrical, No edema, normal temperature, normal color Peripheral Pulses: within normal limits - Abdominal General gastrointestinal: soft, non-tender, non-distended, normal bowel sounds - Integumentary Integumentary: Present: clear, warm, dry - Psychiatric Psychiatric: appropriate mood/affect, cooperative - Neurologic Neurologic: CNII-XII intact, other (Generalized weakness) - Allied Health Allied health notes reviewed: nursing Results - Labs CBC & Chem 7: 06/29/22 04:30 06/30/22 04:31 Labs: Laboratory Last Values WBC 5.9 K/mm3 (4.5-11.0) 06/29/22 04:30 RBC 4.16 M/mm3 (3.65-5.03) 06/29/22 04:30 Hgb 11.0 gm/dl (11.8-15.2) L 06/29/22 04:30 Hct 34.2 % (35.5-45.6) L 06/29/22 04:30 MCV 82 fl (84-94) L 06/29/22 04:30 MCH 26 pg (28-32) L 06/29/22 04:30 MCHC 32 % (32-34) 06/29/22 04:30 RDW 16.9 % (13.2-15.2) H 06/29/22 04:30 Plt Count 184 K/mm3 (140-440) 06/29/22 04:30 Lymph % (Auto) 11.8 % (13.4-35.0) L 06/26/22 04:24 [place]mullen % (Auto) 10.7 % (0.0-7.3) H 06/26/22 04:24 Eos % (Auto) 0.0 % (0.0-4.3) 06/26/22 04:24 Baso % (Auto) 0.2 % (0.0-1.8) 06/26/22 04:24 Lymph # (Auto) 1.4 K/mm3 (1.2-5.4) 06/26/22 04:24 [place]ullen # (Auto) 1.3 K/mm3 (0.0-0.8) H 06/26/22 04:24 Eos # (Auto) 0.0 K/mm3 (0.0-0.4) 06/26/22 04:24 Baso # (Auto) 0.0 K/mm3 (0.0-0.1) 06/26/22 04:24 Seg Neutrophils % 77.3 % (40.0-70.0) H 06/26/22 04:24 Seg Neutrophils # 9.0 K/mm3 (1.8-7.7) H 06/26/22 04:24 PT 18.2 Sec. (12.2-14.9) H 06/27/22 12:50 INR 1.34 (0.87-1.13) H 06/27/22 12:50 APTT 39.6 Sec. (24.2-36.6) H 06/27/22 12:50 Sodium 137 mmol/L (137-145) 06/28/22 07:05 Potassium 4.5 mmol/L (3.6-5.0) 06/28/22 07:05 Chloride 109.8 mmol/L (98-107) H 06/28/22 07:05 Carbon Dioxide 16 mmol/L (22-30) L 06/28/22 07:05 Anion Gap 16 mmol/L 06/28/22 07:05 BUN 21 mg/dL (9-20) H 06/28/22 07:05 Creatinine 1.2 mg/dL (0.8-1.3) 06/30/22 04:31 Estimated GFR > 60 ml/min 06/30/22 04:31 BUN/Creatinine Ratio 16 % 06/28/22 07:05 Glucose 99 mg/dL (75-100) 06/28/22 07:05 POC Glucose 100 mg/dL (70-105) 06/27/22 11:37 Hemoglobin A1c 6.2 % (4-6) H 06/26/22 04:24 Lactic Acid 1.10 mmol/L (0.7-2.0) 06/28/22 07:05 Uric Acid 4.2 mg/dL (3.5-7.6) 06/26/22 14:58 Calcium 8.0 mg/dL (8.4-10.2) L 06/28/22 07:05 Magnesium 1.70 mg/dL (1.7-2.3) 06/25/22 08:23 Iron 29 ug/dL (49-181) L 06/28/22 07:05 TIBC 146 mcg/dL (250-450) L 06/28/22 07:05 Ferritin 1425.0 ng/mL (30.0-300.0) H 06/28/22 07:05 Total Bilirubin 1.20 mg/dL (0.1-1.2) 06/26/22 04:24 AST 141 units/L (5-40) H 06/26/22 04:24 ALT 31 units/L (7-56) 06/26/22 04:24 Alkaline Phosphatase 374 units/L (35-129) H 06/26/22 04:24 Ammonia 28.0 umol/L (25-60) 06/25/22 17:10 Total Protein 5.8 g/dL (6.3-8.2) L 06/26/22 04:24 Albumin 2.8 g/dL (3.9-5) L 06/26/22 04:24 Albumin/Globulin Ratio 0.9 % 06/26/22 04:24 Triglycerides 52 mg/dL (2-149) 06/26/22 04:24 Cholesterol 107 mg/dL (50-199) 06/26/22 04:24 LDL Cholesterol Direct 64 mg/dL (50-130) 06/26/22 04:24 HDL Cholesterol 42 mg/dL (40-59) 06/26/22 04:24 Cholesterol/HDL Ratio 2.54 % 06/26/22 04:24 Vitamin B12 582.9 pg/mL (211-911) 06/25/22 17:10 TSH 0.805 mlU/mL (0.270-4.200) 06/25/22 17:10 Urine Color [place] (Yellow) 06/25/22 09:24 Urine Turbidity Clear (Clear) 06/25/22 09:24 Urine pH 6.0 (5.0-7.0) 06/25/22 09:24 Ur Specific [place] 1.020 (1.003-1.030) 06/25/22 09:24 Urine Protein <30 mg dl mg/dL (Negative) 06/25/22 09:24 Urine Glucose (UA) Negative mg/dL (Negative) 06/25/22 09:24 Urine Ketones Negative mg/dL (Negative) 06/25/22 09:24 Urine Blood Negative (Negative) 06/25/22 09:24 Urine Nitrite Negative (Negative) 06/25/22 09:24 Ur Reducing Substances Not Reportable 06/25/22 09:24 Urine Bilirubin Negative (Negative) 06/25/22 09:24 Urine Ictotest Not Reportable 06/25/22 09:24 Urine Urobilinogen < 2.0 mg/dL (<2.0) 06/25/22 09:24 Ur Leukocyte Esterase Trace (Negative) 06/25/22 09:24 Urine WBC (Auto) 5.0 /HPF (0.0-6.0) 06/25/22 09:24 Urine RBC (Auto) 11.0 /HPF (0.0-6.0) 06/25/22 09:24 U Epithel Cells (Auto) 2.0 /HPF (0-13.0) 06/25/22 09:24 Urine Mucus Few /HPF 06/25/22 09:24 Urine Creatinine 286.7 mg/dL (0.1-20.0) H 06/26/22 21:30 Urine Sodium 30 mmol/L 06/26/22 21:30 Urine Opiates Screen Presumptive negative 06/25/22 14:05 Urine Methadone Screen Presumptive negative 06/25/22 14:05 Ur Barbiturates Screen Presumptive negative 06/25/22 14:05 Ur Phencyclidine Scrn Presumptive negative 06/25/22 14:05 Ur Amphetamines Screen Presumptive negative 06/25/22 14:05 U Benzodiazepines Scrn Presumptive negative 06/25/22 14:05 Urine Cocaine Screen Presumptive negative 06/25/22 14:05 U Marijuana (THC) Screen Presumptive negative 06/25/22 14:05 Drugs of Abuse Note Disclamer 06/25/22 14:05 Microbiology: Microbiology 06/25/22 08:48 Peripheral/Venous Blood Culture - Preliminary NO GROWTH AFTER 4 DAYS 06/25/22 08:48 Peripheral/Venous Blood Culture - Preliminary NO GROWTH AFTER 4 DAYS Javier/IV: Voiding Method Indwelling Catheter Active Medications - Current Medications Current Medications: Generic Name Dose Route Start Last Admin Trade Name Freq PRN Reason Stop Dose Admin Acetaminophen 650 mg 06/25/22 11:23 Acetaminophen 325 Mg Tab PO Q4H PRN Pain, Mild (1-3) Albuterol 2.5 mg 06/25/22 11:23 Albuterol 2.5 Mg/3 Ml Nebu IH Q3HRT PRN Shortness Of Breath Apixaban 2.5 mg 07/11/22 10:00 Apixaban 2.5 Mg Tab PO Q12HR RAMEZ Protocol Artificial Tears 2 drops 06/25/22 22:00 06/30/22 06:03 Hypromellose 0.5% Ophth Soln 15 Ml OU 2 drops Q8HR RAMEZ Administration Aspirin 81 mg 06/28/22 10:00 06/29/22 09:10 Aspirin 81 Mg Tab Chew PO 81 mg QDAY RAMEZ Administration Atorvastatin Calcium 40 mg 06/25/22 22:00 06/29/22 21:45 Atorvastatin 40 Mg Tab PO 40 mg QHS RAMEZ Administration Bisacodyl 10 mg 06/25/22 11:23 Bisacodyl 10 Mg Rect Supp MS QDAY PRN Constipation Docusate Sodium 100 mg 06/26/22 22:00 06/29/22 21:44 Docusate Sodium 100 Mg Cap PO 100 mg BID RAMEZ Administration Ferric Sodium Gluconate 110 mls @ 100 mls/hr 06/30/22 09:06 Complex 125 mg/ Sodium IV 06/30/22 10:11 Chloride ONCE ONE Latanoprost 1 drops 06/27/22 22:00 06/29/22 21:43 Latanoprost 0.005% Ophth Soln 2.5 Ml OU 1 drops QHS RAMEZ Administration Magnesium Hydroxide 30 ml 06/25/22 11:23 Magnesium Hydroxide (Mom) Oral Liqd Udc PO Q4H PRN Constipation Metoclopramide HCl 10 mg 06/25/22 11:23 Metoclopramide 10 Mg Tab PO Q6H PRN Nausea And Vomiting Midodrine 10 mg 06/25/22 16:16 06/29/22 16:37 Midodrine 5 Mg Tab PO 10 mg TID@0800,1200,1600 RAMEZ Administration Naloxone HCl 0.1 mg 06/25/22 11:23 Naloxone 0.4 Mg/1 Ml Inj IV Q2MIN PRN Res Rate </= 8 or 02 SAT < 92% Ondansetron HCl 4 mg 06/25/22 11:23 Ondansetron 4 Mg/2 Ml Inj IV Q8H PRN Nausea And Vomiting Oxycodone/Acetaminophen 1 tab 06/25/22 11:23 Oxycodone /Acetaminophen 5-325mg Tab PO Q6H PRN Pain, Moderate (4-6) Promethazine HCl 25 mg 06/25/22 11:23 Promethazine 25 Mg Rect Supp MS Q6H PRN Nausea And Vomiting Senna 8.6 mg 06/25/22 22:00 06/29/22 21:44 Sennosides 8.6 Mg Tab PO 8.6 mg BID RAMEZ Administration Sodium Chloride 10 ml 06/25/22 22:00 06/29/22 22:42 Sodium Chloride 0.9% 10 Ml Flush Syringe IV 10 ml BID RAMEZ Administration Sodium Chloride 10 ml 06/25/22 11:23 Sodium Chloride 0.9% 10 Ml Flush Syringe IV PRN PRN LINE FLUSH Tamsulosin HCl 0.4 mg 06/26/22 10:00 06/29/22 09:10 Tamsulosin 0.4 Mg Cap PO 0.4 mg QDAY RAMEZ Administration Nutrition/Malnutrition Assess - Dietary Evaluation Nutrition/Malnutrition Findings: Nutrition Notes Start: 06/25/22 18:00 Freq: Status: Active Protocol: Document 06/26/22 14:43 HEATHER (Rec: 06/26/22 15:10 HEATHER [email or web address]) Nutrition Notes Initial or Follow up Brief Note Current Diagnosis Hypertension,Malnutrition, Stroke Other Pertinent Diagnosis Metabolic Encephalopathy & Acidosis, Atrial Fibrilation, SIRS, Prostate Can Current Diet Cardiac Diet (since D 06/26). 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 2.476 Kg body weight loss in 1 day reported. Weight Status Appropriate Subjective/Other Information RD consult for skin risk assessment. Still no reports available on Pt's PO intake of meals at the time, will assess at F/U. Pt is on Room Air, O2 saturation @ 98%, according to Physical Assessment History notes. Pt presents an unspecified area of concern in the sacral area -apparently healing-, according to Physical Assessment History notes. Percent of energy/protein needs met: Prescribed Cardiac Diet provides for energy/protein needs (2,230 Kcal/85 g) during LOS. Is patient on ventilator? No Is Patient Ambulatory and/or Out of Bed Yes REE-(Sanders-St. Jeor-ambulatory/OOB) [ 1899.469 [id number]] Kcal/Kg value to use for calculation 29 Approximate Energy Requirements Using 2143 kcal/Kg Calculation Used for Recommendations Kcal/kg Additional Notes Protein: 1-1.2 g/Kg ABW; 76-91 g/day. Fluids: 1 ml/Kcal, or as per MD. Nutrition Intervention Change Diet Order: Change to Cardiac Diet. Follow-Up By: 07/03/22 Additional Comments Continue monitoring food tolerance, %PO intake of meals , and BM.
[2022-06-30] MEDS ORDERED: SODIUM FERRIC GLUCON/SUCRO 125 MG in SODIUM CHLORIDE 0.9% 100 ML IV ONE (10:00)
--- NOTE | 2022-06-30 10:01 | Progress Note ---
Assessment and Plan 1. Acute CVA probably cardioembolic 2. Chronic combined systolic and diastolic heart failure. 3. Dilated cardiomyopathy with biventricular failure 4. Permanent atrial fibrillation with controlled ventricular response 5. Prostate neoplasm stage IV. Plan. Patient is currently stable there is a hold on pre and after load reducing agen ts secondary to patient's borderline low blood pressure this will be instituted gradually and titrated up as hemodynamically tolerated. Continue anticoagulation with neurology approval using Eliquis Subjective Date of service: 06/30/22 Principal diagnosis: CVA, atrial fibrillation Interval history: No new cardiac complains. Objective Vital Signs Temp Pulse Resp BP Pulse Ox 06/30/22 08:31 98.3 F 73 118/73 100 06/30/22 03:07 65 99 06/30/22 03:06 98.2 F 66 18 103/63 99 06/30/22 01:53 95 06/29/22 21:38 100 06/29/22 20:06 99.0 F 88 28 H 104/63 95 06/29/22 20:00 83 06/29/22 17:46 74 18 99 06/29/22 17:33 98.3 F 85 102/60 100 06/29/22 16:00 88 06/29/22 15:28 99 06/29/22 12:00 81 06/29/22 11:27 98.3 F 81 18 96/61 97 06/29/22 10:00 20 96 - Physical Examination General: No Apparent Distress HEENT: Positive: PERRL Neck: Positive: neck supple Cardiac: Positive: irregularly irregular, S1/S2, S3, PMI, Dilated, Laterally Displaced Lungs: Positive: clear to auscultation, No Wheeze, Rales, Rhonchi Neuro: Positive: Weakness (Generalized lethargy, nonfocal) Abdomen: Positive: Soft Skin: Positive: Clear Extremities: Absent: edema - Labs and Meds Comprehensive Metabolic Panel 06/30/22 Range/Units 04:31 Creatinine 1.2 (0.8-1.3) mg/dL
[2022-06-30] MEDS: ASPIRIN 81 MG TAB CHEW PO SCH (10:54)
[2022-06-30] MEDS: SENNOSIDES 8.6 MG TAB PO SCH ×2 (10:54→21:45)
[2022-06-30] MEDS: TAMSULOSIN 0.4 MG CAP PO SCH (10:54)
[2022-06-30] MEDS: DOCUSATE SODIUM 100 MG CAP PO SCH ×2 (10:54→21:45)
[2022-06-30] MEDS: LATANOPROST 0.005% OPHTH SOLN 2.5 ML OU SCH (21:44)
[2022-07-01] MEDS: HYPROMELLOSE 0.5% OPHTH SOLN 15 ML OU SCH ×3 (05:02→21:47)
[2022-07-01 06:09] LABS: Hematocrit 35.9 % (35.5-45.6); Hemoglobin 11.5 gm/dl (11.8-15.2); Mean Corpuscular HGB Conc 32 % (32-34); Mean Corpuscular Volume 82 fl (84-94); Platelet Count 169 K/mm3 (140-440); Red Blood Count 4.37 M/mm3 (3.65-5.03); Red Cell Distribution Width 16.6 % (13.2-15.2)
--- NOTE | 2022-07-01 09:25 | Progress Note ---
Assessment and Plan Assessment and plan: This is 82-year-old male with CVA (13 years ago), glaucoma, arthritis, stage IV prostate cancer currently started on bicalutamide 3 days ago presented to emergency department on 06/25 after having right-sided weakness with spasms, per family expressive aphasia, and confusion. Code stroke was called and ECG showed A. fib with bundle branch block and was noted to have hypotension. Initial CT showed previous stroke with no acute pathology. Patient was admitted to the hospitalist service with consults to telemetry neurology, CCM and cardiology for A. fib with RVR and to rule out CVA. Hospital course to date: 06/26: Patient had a MRI brain which showed subacute ischemia and MRA head/neck was obtained due to increasing renal function. Echocardiogram with bubble study pending. For hypertension patient was started on midodrine yesterday evening and given a total of 1500 mL normal saline bolus overnight. Today we administered 2 L normal saline bolus and his remains on Levophed at 2. PICC line ordered. Extensive conversation at bedside with daughter. 06/27: Off levophed, increase noted to Cr and decreased UOP therefore will give 500ml bolus. Will dc abx and transfer to tele 06/28: No overnight events. PT recommended subacute rehab. Discussed with case management for placement. Reached out to neurology regarding anticoagulation recommendation in light of subacute stroke. Patient would likely benefit from a DOAC. 06/29: Neurology ordered Carotid US to rule out atheroembolic plaque from carotid. If not occlusions noted, recommends OP holter monitor. No recommendation for DOAC at this time. Currently dispo for patient is subacute rehab. Will d/w Cm regarding placement. 06/30: Unremarkable carotid Dopplers for occlusion. Patient will continue with o utpatient Holter monitor. Pending subacute rehab authorization. Continue to monitor. 07/01: Patient is clinically stable. Continue pending subacute rehab authorization. Assessment and plan: This is a 82-year-old male with CVA (2008), stage IV prostate cancer admitted with hypotension, A. fib RVR and CVA Neuro: Subacute CVA -Neurology consulted, appreciate recommendations -Initial CT head radiology read: Age-related atrophy and microvascular ischemic changes, large areas of encephalomalacia in multiple vascular distributions secondary to multifocal remote cortical infarctions, no acute intracranial normality -MRI brain radiology read: Subacute border zone ischemic changes in the left frontal lobe and left centrum semiovale, focal areas of subacute ischemia in the left precentral gyrus and left superior frontoparietal -MRA head/neck pending read -Lipitor, aspirin -PT/OT/ST consulted, recommendations -Echocardiogram shows no PFO -Reorientation as needed -Maintain sleep-wake cycle -Aspiration/seizure precautions -As needed analgesia -Neurochecks per protocol Cardiac: Atrial fibrillation, hypotension, h/o HFrEF -Cardiology and CCM consulted, appreciate recommendations -Per cardiology: no indication for AV hector blockers -Blood pressure monitoring per protocol -Midodrine 3 times daily -s/p Vasopressor support with levophed -Echocardiogram shows four-chamber cardiomyopathy, LVEF 35 to 40%, negative c ontrast bubble study Respiratory: NAD -Supplemental oxygen as needed -Pulmonary hygiene -SPO2 monitoring GI: Moderate protein calorie malnutrition -24 hours -256 mL -PPI -ST evaluation cleared for pureed diet with thins -Passed bedside swallow eval -BR: colace : Metabolic acidosis, acute kidney injury likely secondary to vasomotor nephropathy given hypotension -Given decreased UOP overnight given 500 ml bolus -Monitor intake and output -Renally dose medications -Avoid nephrotoxic medications -FeNa 0.12% -Trend BMP ID: Lactic acidosis -f/u blood culture -06/25 BC NGTD -Monitor WBC and temperature curve -s/p Rocephin x 2 Endo: NAD -Avoid hypoglycemia -Hemaglobin A1C 6.2 -Accuchecks ACHS Heme: NAD -Trend CBC -Transfuse hemoglobin less than 7 -SCDs to BLE while in bed Oncology: Stage IV Prostate -Recently started on bicalutamide as outpatient -Hem/Onc consulted, appreciate recommendations -Uric acid 4.2 -Continue supportive care #Advance care planning Disease education conducted, care plan discussed, diagnoses discussed, prognosis discussed, patient is full code, patient acknowledges understanding and agree with care plan, +30 minutes. Disposition Plan: Pending placement Total Time Spent with Patient (Minutes): 30 minutes History Interval history: No acute events overnight. Hospitalist Physical - Constitutional Vitals: Temp Pulse Resp BP Pulse Ox 98.3 F 74 18 117/63 99 07/01/22 08:10 07/01/22 08:10 07/01/22 05:32 07/01/22 08:10 07/01/22 08:10 General appearance: Present: no acute distress, well-nourished, other (Dysarthria ) - EENT Eyes: Present: PERRL, EOM intact ENT: hearing intact, clear oral mucosa, dentition normal - Neck Neck: Present: supple, normal ROM - Respiratory Respiratory effort: normal Respiratory: bilateral: CTA - Cardiovascular Rhythm: regular Heart Sounds: Present: S1 & S2 - Extremities Extremities: no ischemia, pulses intact, pulses symmetrical, No edema, normal temperature, normal color Peripheral Pulses: within normal limits - Abdominal General gastrointestinal: soft, non-tender, non-distended, normal bowel sounds - Integumentary Integumentary: Present: clear, warm, dry - Psychiatric Psychiatric: appropriate mood/affect, cooperative - Neurologic Neurologic: CNII-XII intact - Allied Health Allied health notes reviewed: nursing Results - Labs CBC & Chem 7: 07/01/22 05:28 06/30/22 04:31 Labs: Laboratory Last Values WBC 7.6 K/mm3 (4.5-11.0) 07/01/22 05:28 RBC 4.37 M/mm3 (3.65-5.03) 07/01/22 05:28 Hgb 11.5 gm/dl (11.8-15.2) L 07/01/22 05:28 Hct 35.9 % (35.5-45.6) 07/01/22 05:28 MCV 82 fl (84-94) L 07/01/22 05:28 MCH 26 pg (28-32) L 07/01/22 05:28 MCHC 32 % (32-34) 07/01/22 05:28 RDW 16.6 % (13.2-15.2) H 07/01/22 05:28 Plt Count 169 K/mm3 (140-440) 07/01/22 05:28 Lymph % (Auto) 11.8 % (13.4-35.0) L 06/26/22 04:24 [place] % (Auto) 10.7 % (0.0-7.3) H 06/26/22 04:24 Eos % (Auto) 0.0 % (0.0-4.3) 06/26/22 04:24 Baso % (Auto) 0.2 % (0.0-1.8) 06/26/22 04:24 Lymph # (Auto) 1.4 K/mm3 (1.2-5.4) 06/26/22 04:24 [place] # (Auto) 1.3 K/mm3 (0.0-0.8) H 06/26/22 04:24 Eos # (Auto) 0.0 K/mm3 (0.0-0.4) 06/26/22 04:24 Baso # (Auto) 0.0 K/mm3 (0.0-0.1) 06/26/22 04:24 Seg Neutrophils % 77.3 % (40.0-70.0) H 06/26/22 04:24 Seg Neutrophils # 9.0 K/mm3 (1.8-7.7) H 06/26/22 04:24 PT 18.2 Sec. (12.2-14.9) H 06/27/22 12:50 INR 1.34 (0.87-1.13) H 06/27/22 12:50 APTT 39.6 Sec. (24.2-36.6) H 06/27/22 12:50 Sodium 137 mmol/L (137-145) 06/28/22 07:05 Potassium 4.5 mmol/L (3.6-5.0) 06/28/22 07:05 Chloride 109.8 mmol/L (98-107) H 06/28/22 07:05 Carbon Dioxide 16 mmol/L (22-30) L 06/28/22 07:05 Anion Gap 16 mmol/L 06/28/22 07:05 BUN 21 mg/dL (9-20) H 06/28/22 07:05 Creatinine 1.2 mg/dL (0.8-1.3) 06/30/22 04:31 Estimated GFR > 60 ml/min 06/30/22 04:31 BUN/Creatinine Ratio 16 % 06/28/22 07:05 Glucose 99 mg/dL (75-100) 06/28/22 07:05 POC Glucose 100 mg/dL (70-105) 06/27/22 11:37 Hemoglobin A1c 6.2 % (4-6) H 06/26/22 04:24 Lactic Acid 1.10 mmol/L (0.7-2.0) 06/28/22 07:05 Uric Acid 4.2 mg/dL (3.5-7.6) 06/26/22 14:58 Calcium 8.0 mg/dL (8.4-10.2) L 06/28/22 07:05 Magnesium 1.70 mg/dL (1.7-2.3) 06/25/22 08:23 Iron 29 ug/dL (49-181) L 06/28/22 07:05 TIBC 146 mcg/dL (250-450) L 06/28/22 07:05 Ferritin 1425.0 ng/mL (30.0-300.0) H 06/28/22 07:05 Total Bilirubin 1.20 mg/dL (0.1-1.2) 06/26/22 04:24 AST 141 units/L (5-40) H 06/26/22 04:24 ALT 31 units/L (7-56) 06/26/22 04:24 Alkaline Phosphatase 374 units/L (35-129) H 06/26/22 04:24 Ammonia 28.0 umol/L (25-60) 06/25/22 17:10 Total Protein 5.8 g/dL (6.3-8.2) L 06/26/22 04:24 Albumin 2.8 g/dL (3.9-5) L 06/26/22 04:24 Albumin/Globulin Ratio 0.9 % 06/26/22 04:24 Triglycerides 52 mg/dL (2-149) 06/26/22 04:24 Cholesterol 107 mg/dL (50-199) 06/26/22 04:24 LDL Cholesterol Direct 64 mg/dL (50-130) 06/26/22 04:24 HDL Cholesterol 42 mg/dL (40-59) 06/26/22 04:24 Cholesterol/HDL Ratio 2.54 % 06/26/22 04:24 Vitamin B12 582.9 pg/mL (211-911) 06/25/22 17:10 TSH 0.805 mlU/mL (0.270-4.200) 06/25/22 17:10 Urine Color [place] (Yellow) 06/25/22 09:24 Urine Turbidity Clear (Clear) 06/25/22 09:24 Urine pH 6.0 (5.0-7.0) 06/25/22 09:24 Ur Specific [place] 1.020 (1.003-1.030) 06/25/22 09:24 Urine Protein <30 mg dl mg/dL (Negative) 06/25/22 09:24 Urine Glucose (UA) Negative mg/dL (Negative) 06/25/22 09:24 Urine Ketones Negative mg/dL (Negative) 06/25/22 09:24 Urine Blood Negative (Negative) 06/25/22 09:24 Urine Nitrite Negative (Negative) 06/25/22 09:24 Ur Reducing Substances Not Reportable 06/25/22 09:24 Urine Bilirubin Negative (Negative) 06/25/22 09:24 Urine Ictotest Not Reportable 06/25/22 09:24 Urine Urobilinogen < 2.0 mg/dL (<2.0) 06/25/22 09:24 Ur Leukocyte Esterase Trace (Negative) 06/25/22 09:24 Urine WBC (Auto) 5.0 /HPF (0.0-6.0) 06/25/22 09:24 Urine RBC (Auto) 11.0 /HPF (0.0-6.0) 06/25/22 09:24 U Epithel Cells (Auto) 2.0 /HPF (0-13.0) 06/25/22 09:24 Urine Mucus Few /HPF 06/25/22 09:24 Urine Creatinine 286.7 mg/dL (0.1-20.0) H 06/26/22 21:30 Urine Sodium 30 mmol/L 06/26/22 21:30 Urine Opiates Screen Presumptive negative 06/25/22 14:05 Urine Methadone Screen Presumptive negative 06/25/22 14:05 Ur Barbiturates Screen Presumptive negative 06/25/22 14:05 Ur Phencyclidine Scrn Presumptive negative 06/25/22 14:05 Ur Amphetamines Screen Presumptive negative 06/25/22 14:05 U Benzodiazepines Scrn Presumptive negative 06/25/22 14:05 Urine Cocaine Screen Presumptive negative 06/25/22 14:05 U Marijuana (THC) Screen Presumptive negative 06/25/22 14:05 Drugs of Abuse Note Disclamer 06/25/22 14:05 Microbiology: Microbiology 06/25/22 08:48 Peripheral/Venous Blood Culture - Final NO GROWTH AFTER 5 DAYS 06/25/22 08:48 Peripheral/Venous Blood Culture - Final NO GROWTH AFTER 5 DAYS Javier/IV: Voiding Method Indwelling Catheter Active Medications - Current Medications Current Medications: Generic Name Dose Route Start Last Admin Trade Name Freq PRN Reason Stop Dose Admin Acetaminophen 650 mg 06/25/22 11:23 Acetaminophen 325 Mg Tab PO Q4H PRN Pain, Mild (1-3) Albuterol 2.5 mg 06/25/22 11:23 Albuterol 2.5 Mg/3 Ml Nebu IH Q3HRT PRN Shortness Of Breath Apixaban 2.5 mg 07/11/22 10:00 Apixaban 2.5 Mg Tab PO Q12HR [facility] Protocol Artificial Tears 2 drops 06/25/22 22:00 07/01/22 05:02 Hypromellose 0.5% Ophth Soln 15 Ml OU 2 drops Q8HR RAMEZ Administration Aspirin 81 mg 06/28/22 10:00 06/30/22 10:54 Aspirin 81 Mg Tab Chew PO 81 mg QDAY RAMEZ Administration Atorvastatin Calcium 40 mg 06/25/22 22:00 06/30/22 21:45 Atorvastatin 40 Mg Tab PO 40 mg QHS RAMEZ Administration Bisacodyl 10 mg 06/25/22 11:23 Bisacodyl 10 Mg Rect Supp [place] QDAY PRN Constipation Docusate Sodium 100 mg 06/26/22 22:00 06/30/22 21:45 Docusate Sodium 100 Mg Cap PO 100 mg BID RAMEZ Administration Latanoprost 1 drops 06/27/22 22:00 06/30/22 21:44 Latanoprost 0.005% Ophth Soln 2.5 Ml OU 1 drops QHS RAMEZ Administration Magnesium Hydroxide 30 ml 06/25/22 11:23 Magnesium Hydroxide (Mom) Oral Liqd Udc PO Q4H PRN Constipation Metoclopramide HCl 10 mg 06/25/22 11:23 Metoclopramide 10 Mg Tab PO Q6H PRN Nausea And Vomiting Midodrine 10 mg 06/25/22 16:16 06/30/22 17:04 Midodrine 5 Mg Tab PO 10 mg TID@0800,1200,1600 RAMEZ Administration Naloxone HCl 0.1 mg 06/25/22 11:23 Naloxone 0.4 Mg/1 Ml Inj IV Q2MIN PRN Res Rate </= 8 or 02 SAT < 92% Ondansetron HCl 4 mg 06/25/22 11:23 Ondansetron 4 Mg/2 Ml Inj IV Q8H PRN Nausea And Vomiting Oxycodone/Acetaminophen 1 tab 06/25/22 11:23 Oxycodone /Acetaminophen 5-325mg Tab PO Q6H PRN Pain, Moderate (4-6) Promethazine HCl 25 mg 06/25/22 11:23 Promethazine 25 Mg Rect Supp [place] Q6H PRN Nausea And Vomiting Senna 8.6 mg 06/25/22 22:00 06/30/22 21:45 Sennosides 8.6 Mg Tab PO 8.6 mg BID RAMEZ Administration Sodium Chloride 10 ml 06/25/22 22:00 06/30/22 21:45 Sodium Chloride 0.9% 10 Ml Flush Syringe IV 10 ml BID RAMEZ Administration Sodium Chloride 10 ml 06/25/22 11:23 Sodium Chloride 0.9% 10 Ml Flush Syringe IV PRN PRN LINE FLUSH Tamsulosin HCl 0.4 mg 06/26/22 10:00 06/30/22 10:54 Tamsulosin 0.4 Mg Cap PO 0.4 mg QDAY RAMEZ Administration Nutrition/Malnutrition Assess - Dietary Evaluation Nutrition/Malnutrition Findings: Nutrition Notes Start: 06/25/22 18:00 Freq: Status: Active Protocol: Document 06/26/22 14:43 HEATHER (Rec: 06/26/22 15:10 HEATHER [id number]) Nutrition Notes Initial or Follow up Brief Note Current Diagnosis Hypertension,Malnutrition, Stroke Other Pertinent Diagnosis Metabolic Encephalopathy & Acidosis, Atrial Fibrilation, SIRS, Prostate Can Current Diet Cardiac Diet (since D 06/26). Height 5 ft 11 in Weight 73.9 kg [place] Body Weight (kg) 78.18 BMI 22.7 Intake Prior to Admission Poor Weight change and time frame Pt denies having loss body weight [employer]. 2.476 Kg body weight loss in 1 day reported. Weight Status Appropriate Subjective/Other Information RD consult for skin risk assessment. Still no reports available on Pt's PO intake of meals at the time, will assess at F/U. Pt is on Room Air, O2 saturation @ 98%, according to Physical Assessment History notes. Pt presents an unspecified area of concern in the sacral area -apparently healing-, according to Physical Assessment History notes. Percent of energy/protein needs met: Prescribed Cardiac Diet provides for energy/protein needs (2,230 Kcal/85 g) during LOS. Is patient on ventilator? No Is Patient Ambulatory and/or Out of Bed Yes REE-([place]-St. Jeor-ambulatory/OOB) [ 1899.469 [id number]] Kcal/Kg value to use for calculation 29 Approximate Energy Requirements Using 2143 kcal/Kg Calculation Used for Recommendations Kcal/kg Additional Notes Protein: 1-1.2 g/Kg ABW; 76-91 g/day. Fluids: 1 ml/Kcal, or as per MD. Nutrition Intervention Change Diet Order: Change to Cardiac Diet. Follow-Up By: 07/03/22 Additional Comments Continue monitoring food tolerance, %PO intake of meals , and BM.
[2022-07-01] MEDS: ASPIRIN 81 MG TAB CHEW PO SCH (10:41)
[2022-07-01] MEDS: DOCUSATE SODIUM 100 MG CAP PO SCH ×2 (10:42→21:47)
[2022-07-01] MEDS: SENNOSIDES 8.6 MG TAB PO SCH ×2 (10:42→21:47)
[2022-07-01] MEDS: TAMSULOSIN 0.4 MG CAP PO SCH (10:42)
[2022-07-01] MEDS: MIDODRINE 5 MG TAB PO SCH ×3 (10:42→17:25)
--- NOTE | 2022-07-01 11:06 | Progress Note ---
Assessment and Plan 1. Acute CVA probably cardioembolic 2. Chronic combined systolic and diastolic heart failure. 3. Dilated cardiomyopathy with biventricular failure 4. Permanent atrial fibrillation with controlled ventricular response 5. Prostate neoplasm stage IV. Plan. Patient is currently stable, will start Entresto and Coreg for pre and after l oad reduction as hemodynamically tolerated. Continue anticoagulation with Neurology approval using Eliquis Subjective Date of service: 07/01/22 Principal diagnosis: CVA, atrial fibrillation Interval history: No new cardiac complains. Objective Vital Signs Temp Pulse Resp BP Pulse Ox 07/01/22 08:10 98.3 F 74 117/63 99 07/01/22 05:32 98.4 F 18 115/67 07/01/22 00:22 97.5 F L 19 101/63 07/01/22 00:00 77 100 06/30/22 22:00 71 06/30/22 20:37 100 06/30/22 19:54 97 06/30/22 19:39 98.8 F 68 18 93/62 97 06/30/22 15:55 98.2 F 72 107/64 99 06/30/22 12:39 75 97 06/30/22 11:30 98.0 F 71 98/62 98 - Physical Examination General: No Apparent Distress HEENT: Positive: PERRL Neck: Positive: neck supple Cardiac: Positive: irregularly irregular, S1/S2, PMI, Dilated, Laterally Displaced. Negative: S3 Lungs: Positive: clear to auscultation, No Wheeze, Rales, Rhonchi Neuro: Positive: Weakness (Generalized lethargy, nonfocal) Abdomen: Positive: Soft Skin: Positive: Clear Extremities: Absent: edema - Labs and Meds CBC 07/01/22 Range/Units 05:28 WBC 7.6 (4.5-11.0) K/mm3 RBC 4.37 (3.65-5.03) M/mm3 Hgb 11.5 L (11.8-15.2) gm/dl Hct 35.9 (35.5-45.6) % Plt Count 169 (140-440) K/mm3
[2022-07-01] MEDS: carvediloL 3.125 MG TAB PO SCH (21:47)
[2022-07-01] MEDS: SACUBITRIL/VALSARTAN 24-26 MG TAB PO SCH (21:47)
[2022-07-01] MEDS: LATANOPROST 0.005% OPHTH SOLN 2.5 ML OU SCH (21:47)
[2022-07-02] MEDS: HYPROMELLOSE 0.5% OPHTH SOLN 15 ML OU SCH (05:12)
[2022-07-02] MEDS: MIDODRINE 5 MG TAB PO SCH ×2 (09:00→11:52)
[2022-07-02] MEDS: ASPIRIN 81 MG TAB CHEW PO SCH (09:47)
[2022-07-02] MEDS: TAMSULOSIN 0.4 MG CAP PO SCH (09:48)
[2022-07-02] MEDS: DOCUSATE SODIUM 100 MG CAP PO SCH (09:49)
[2022-07-02] MEDS: SENNOSIDES 8.6 MG TAB PO SCH (09:49)
[2022-07-02] MEDS: carvediloL 3.125 MG TAB PO SCH (09:49)
[2022-07-02] MEDS: SACUBITRIL/VALSARTAN 24-26 MG TAB PO SCH (09:49)
--- NOTE | 2022-07-02 13:08 | Progress Note ---
Assessment and Plan Assessment and plan: This is 82-year-old male with CVA (13 years ago), glaucoma, arthritis, stage IV prostate cancer currently started on bicalutamide 3 days ago presented to emergency department on 06/25 after having right-sided weakness with spasms, per family expressive aphasia, and confusion. Code stroke was called and ECG showed A. fib with bundle branch block and was noted to have hypotension. Initial CT showed previous stroke with no acute pathology. Patient was admitted to the hospitalist service with consults to telemetry neurology, CCM and cardiology for A. fib with RVR and to rule out CVA. Hospital course to date: 06/26: Patient had a MRI brain which showed subacute ischemia and MRA head/neck was obtained due to increasing renal function. Echocardiogram with bubble study pending. For hypertension patient was started on midodrine yesterday evening and given a total of 1500 mL normal saline bolus overnight. Today we administered 2 L normal saline bolus and his remains on Levophed at 2. PICC line ordered. Extensive conversation at bedside with daughter. 06/27: Off levophed, increase noted to Cr and decreased UOP therefore will give 500ml bolus. Will dc abx and transfer to tele 06/28: No overnight events. PT recommended subacute rehab. Discussed with case management for placement. Reached out to neurology regarding anticoagulation recommendation in light of subacute stroke. Patient would likely benefit from a DOAC. 06/29: Neurology ordered Carotid US to rule out atheroembolic plaque from carotid. If not occlusions noted, recommends OP holter monitor. No recommendation for DOAC at this time. Currently dispo for patient is subacute rehab. Will d/w Cm regarding placement. 06/30: Unremarkable carotid Dopplers for occlusion. Patient will continue with o utpatient Holter monitor. Pending subacute rehab authorization. Continue to monitor. 07/01: Patient is clinically stable. Continue pending subacute rehab authorization. 07/02: Patient is clinically stable. Continue pending subacute rehab authorization. Assessment and plan: This is a 82-year-old male with CVA (2008), stage IV prostate cancer admitted with hypotension, A. fib RVR and CVA Neuro: Subacute CVA -Neurology consulted, appreciate recommendations -Initial CT head radiology read: Age-related atrophy and microvascular ischemic changes, large areas of encephalomalacia in multiple vascular distributions secondary to multifocal remote cortical infarctions, no acute intracranial normality -MRI brain radiology read: Subacute border zone ischemic changes in the left frontal lobe and left centrum semiovale, focal areas of subacute ischemia in the left precentral gyrus and left superior frontoparietal -MRA head/neck pending read -Lipitor, aspirin -PT/OT/ST consulted, recommendations -Echocardiogram shows no PFO -Reorientation as needed -Maintain sleep-wake cycle -Aspiration/seizure precautions -As needed analgesia -Neurochecks per protocol Cardiac: Atrial fibrillation, hypotension, h/o HFrEF -Cardiology and CCM consulted, appreciate recommendations -Per cardiology: no indication for AV hector blockers -Blood pressure monitoring per protocol -Midodrine 3 times daily -s/p Vasopressor support with levophed -Echocardiogram shows four-chamber cardiomyopathy, LVEF 35 to 40%, negative contrast bubble study Respiratory: NAD -Supplemental oxygen as needed -Pulmonary hygiene -SPO2 monitoring GI: Moderate protein calorie malnutrition -24 hours -256 mL -PPI -ST evaluation cleared for pureed diet with thins -Passed bedside swallow eval -BR: colace : Metabolic acidosis, acute kidney injury likely secondary to vasomotor nephropathy given hypotension -Given decreased UOP overnight given 500 ml bolus -Monitor intake and output -Renally dose medications -Avoid nephrotoxic medications -FeNa 0.12% -Trend BMP ID: Lactic acidosis -f/u blood culture -06/25 BC NGTD -Monitor WBC and temperature curve -s/p Rocephin x 2 Endo: NAD -Avoid hypoglycemia -Hemaglobin A1C 6.2 -Accuchecks ACHS Heme: NAD -Trend CBC -Transfuse hemoglobin less than 7 -SCDs to BLE while in bed Oncology: Stage IV Prostate -Recently started on bicalutamide as outpatient -Hem/Onc consulted, appreciate recommendations -Uric acid 4.2 -Continue supportive care #Advance care planning Disease education conducted, care plan discussed, diagnoses discussed, prognosis discussed, patient is full code, patient acknowledges understanding and agree with care plan, +30 minutes. Disposition Plan: pending placement Total Time Spent with Patient (Minutes): 30 minutes History Interval history: No acute events overnight. Hospitalist Physical - Constitutional Vitals: Temp Pulse Resp BP Pulse Ox 98.0 F 69 20 119/60 97 07/02/22 00:19 07/02/22 07:58 07/02/22 00:19 07/02/22 07:58 07/02/22 08:29 General appearance: Present: no acute distress, well-nourished, other (Dysarthria ) - EENT Eyes: Present: PERRL, EOM intact ENT: hearing intact, clear oral mucosa - Neck Neck: Present: supple, normal ROM - Respiratory Respiratory effort: normal Respiratory: bilateral: CTA - Cardiovascular Rhythm: regular Heart Sounds: Present: S1 & S2 - Extremities Extremities: no ischemia, pulses intact, pulses symmetrical, No edema, normal temperature, normal color Peripheral Pulses: within normal limits - Abdominal General gastrointestinal: soft, non-tender, non-distended, normal bowel sounds - Integumentary Integumentary: Present: clear, warm, dry - Psychiatric Psychiatric: appropriate mood/affect, cooperative - Neurologic Neurologic: CNII-XII intact - Allied Health Allied health notes reviewed: nursing, case management Results - Labs CBC & Chem 7: 07/01/22 05:28 06/30/22 04:31 Labs: Laboratory Last Values WBC 7.6 K/mm3 (4.5-11.0) 07/01/22 05:28 RBC 4.37 M/mm3 (3.65-5.03) 07/01/22 05:28 Hgb 11.5 gm/dl (11.8-15.2) L 07/01/22 05:28 Hct 35.9 % (35.5-45.6) 07/01/22 05:28 MCV 82 fl (84-94) L 07/01/22 05:28 MCH 26 pg (28-32) L 07/01/22 05:28 MCHC 32 % (32-34) 07/01/22 05:28 RDW 16.6 % (13.2-15.2) H 07/01/22 05:28 Plt Count 169 K/mm3 (140-440) 07/01/22 05:28 Lymph % (Auto) 11.8 % (13.4-35.0) L 06/26/22 04:24 [place] % (Auto) 10.7 % (0.0-7.3) H 06/26/22 04:24 Eos % (Auto) 0.0 % (0.0-4.3) 06/26/22 04:24 Baso % (Auto) 0.2 % (0.0-1.8) 06/26/22 04:24 Lymph # (Auto) 1.4 K/mm3 (1.2-5.4) 06/26/22 04:24 [place] # (Auto) 1.3 K/mm3 (0.0-0.8) H 06/26/22 04:24 Eos # (Auto) 0.0 K/mm3 (0.0-0.4) 06/26/22 04:24 Baso # (Auto) 0.0 K/mm3 (0.0-0.1) 06/26/22 04:24 Seg Neutrophils % 77.3 % (40.0-70.0) H 06/26/22 04:24 Seg Neutrophils # 9.0 K/mm3 (1.8-7.7) H 06/26/22 04:24 PT 18.2 Sec. (12.2-14.9) H 06/27/22 12:50 INR 1.34 (0.87-1.13) H 06/27/22 12:50 APTT 39.6 Sec. (24.2-36.6) H 06/27/22 12:50 Sodium 137 mmol/L (137-145) 06/28/22 07:05 Potassium 4.5 mmol/L (3.6-5.0) 06/28/22 07:05 Chloride 109.8 mmol/L (98-107) H 06/28/22 07:05 Carbon Dioxide 16 mmol/L (22-30) L 06/28/22 07:05 Anion Gap 16 mmol/L 06/28/22 07:05 BUN 21 mg/dL (9-20) H 06/28/22 07:05 Creatinine 1.2 mg/dL (0.8-1.3) 06/30/22 04:31 Estimated GFR > 60 ml/min 06/30/22 04:31 BUN/Creatinine Ratio 16 % 06/28/22 07:05 Glucose 99 mg/dL (75-100) 06/28/22 07:05 POC Glucose 100 mg/dL (70-105) 06/27/22 11:37 Hemoglobin A1c 6.2 % (4-6) H 06/26/22 04:24 Lactic Acid 1.10 mmol/L (0.7-2.0) 06/28/22 07:05 Uric Acid 4.2 mg/dL (3.5-7.6) 06/26/22 14:58 Calcium 8.0 mg/dL (8.4-10.2) L 06/28/22 07:05 Magnesium 1.70 mg/dL (1.7-2.3) 06/25/22 08:23 Iron 29 ug/dL (49-181) L 06/28/22 07:05 TIBC 146 mcg/dL (250-450) L 06/28/22 07:05 Ferritin 1425.0 ng/mL (30.0-300.0) H 06/28/22 07:05 Total Bilirubin 1.20 mg/dL (0.1-1.2) 06/26/22 04:24 AST 141 units/L (5-40) H 06/26/22 04:24 ALT 31 units/L (7-56) 06/26/22 04:24 Alkaline Phosphatase 374 units/L (35-129) H 06/26/22 04:24 Ammonia 28.0 umol/L (25-60) 06/25/22 17:10 Total Protein 5.8 g/dL (6.3-8.2) L 06/26/22 04:24 Albumin 2.8 g/dL (3.9-5) L 06/26/22 04:24 Albumin/Globulin Ratio 0.9 % 06/26/22 04:24 Triglycerides 52 mg/dL (2-149) 06/26/22 04:24 Cholesterol 107 mg/dL (50-199) 06/26/22 04:24 LDL Cholesterol Direct 64 mg/dL (50-130) 06/26/22 04:24 HDL Cholesterol 42 mg/dL (40-59) 06/26/22 04:24 Cholesterol/HDL Ratio 2.54 % 06/26/22 04:24 Vitamin B12 582.9 pg/mL (211-911) 06/25/22 17:10 TSH 0.805 mlU/mL (0.270-4.200) 06/25/22 17:10 Urine Color [place] (Yellow) 06/25/22 09:24 Urine Turbidity Clear (Clear) 06/25/22 09:24 Urine pH 6.0 (5.0-7.0) 06/25/22 09:24 Ur Specific [place] 1.020 (1.003-1.030) 06/25/22 09:24 Urine Protein <30 mg dl mg/dL (Negative) 06/25/22 09:24 Urine Glucose (UA) Negative mg/dL (Negative) 06/25/22 09:24 Urine Ketones Negative mg/dL (Negative) 06/25/22 09:24 Urine Blood Negative (Negative) 06/25/22 09:24 Urine Nitrite Negative (Negative) 06/25/22 09:24 Ur Reducing Substances Not Reportable 06/25/22 09:24 Urine Bilirubin Negative (Negative) 06/25/22 09:24 Urine Ictotest Not Reportable 06/25/22 09:24 Urine Urobilinogen < 2.0 mg/dL (<2.0) 06/25/22 09:24 Ur Leukocyte Esterase Trace (Negative) 06/25/22 09:24 Urine WBC (Auto) 5.0 /HPF (0.0-6.0) 06/25/22 09:24 Urine RBC (Auto) 11.0 /HPF (0.0-6.0) 06/25/22 09:24 U Epithel Cells (Auto) 2.0 /HPF (0-13.0) 06/25/22 09:24 Urine Mucus Few /HPF 06/25/22 09:24 Urine Creatinine 286.7 mg/dL (0.1-20.0) H 06/26/22 21:30 Urine Sodium 30 mmol/L 06/26/22 21:30 Urine Opiates Screen Presumptive negative 06/25/22 14:05 Urine Methadone Screen Presumptive negative 06/25/22 14:05 Ur Barbiturates Screen Presumptive negative 06/25/22 14:05 Ur Phencyclidine Scrn Presumptive negative 06/25/22 14:05 Ur Amphetamines Screen Presumptive negative 06/25/22 14:05 U Benzodiazepines Scrn Presumptive negative 06/25/22 14:05 Urine Cocaine Screen Presumptive negative 06/25/22 14:05 U Marijuana (THC) Screen Presumptive negative 06/25/22 14:05 Drugs of Abuse Note Disclamer 06/25/22 14:05 SARS-CoV-2 (PCR) Positive (Negative) A 07/02/22 12:00 Javier/IV: Voiding Method Indwelling Catheter Active Medications - Current Medications Current Medications: Generic Name Dose Route Start Last Admin Trade Name Freq PRN Reason Stop Dose Admin Acetaminophen 650 mg 06/25/22 11:23 Acetaminophen 325 Mg Tab PO Q4H PRN Pain, Mild (1-3) Albuterol 2.5 mg 06/25/22 11:23 Albuterol 2.5 Mg/3 Ml Nebu IH Q3HRT PRN Shortness Of Breath Apixaban 2.5 mg 07/11/22 10:00 Apixaban 2.5 Mg Tab PO Q12HR RAMEZ Protocol Artificial Tears 2 drops 06/25/22 22:00 07/02/22 05:12 Hypromellose 0.5% Ophth Soln 15 Ml OU 2 drops Q8HR RAMEZ Administration Aspirin 81 mg 06/28/22 10:00 07/02/22 09:47 Aspirin 81 Mg Tab Chew PO 81 mg QDAY RAMEZ Administration Atorvastatin Calcium 40 mg 06/25/22 22:00 07/01/22 21:47 Atorvastatin 40 Mg Tab PO 40 mg QHS RAMEZ Administration Bisacodyl 10 mg 06/25/22 11:23 Bisacodyl 10 Mg Rect Supp UT QDAY PRN Constipation Carvedilol 3.125 mg 07/01/22 22:00 07/02/22 09:49 Carvedilol 3.125 Mg Tab PO 3.125 mg BID RAMEZ Administration Docusate Sodium 100 mg 06/26/22 22:00 07/02/22 09:49 Docusate Sodium 100 Mg Cap PO 100 mg BID RAMEZ Administration Latanoprost 1 drops 06/27/22 22:00 07/01/22 21:47 Latanoprost 0.005% Ophth Soln 2.5 Ml OU 1 drops QHS RAMEZ Administration Magnesium Hydroxide 30 ml 06/25/22 11:23 Magnesium Hydroxide (Mom) Oral Liqd Udc PO Q4H PRN Constipation Metoclopramide HCl 10 mg 06/25/22 11:23 Metoclopramide 10 Mg Tab PO Q6H PRN Nausea And Vomiting Midodrine 10 mg 06/25/22 16:16 07/02/22 11:52 Midodrine 5 Mg Tab PO 10 mg TID@0800,1200,1600 RAMEZ Administration Naloxone HCl 0.1 mg 06/25/22 11:23 Naloxone 0.4 Mg/1 Ml Inj IV Q2MIN PRN Res Rate </= 8 or 02 SAT < 92% Ondansetron HCl 4 mg 06/25/22 11:23 Ondansetron 4 Mg/2 Ml Inj IV Q8H PRN Nausea And Vomiting Oxycodone/Acetaminophen 1 tab 06/25/22 11:23 Oxycodone /Acetaminophen 5-325mg Tab PO Q6H PRN Pain, Moderate (4-6) Promethazine HCl 25 mg 06/25/22 11:23 Promethazine 25 Mg Rect Supp UT Q6H PRN Nausea And Vomiting Sacubitril/Valsartan 1 each 07/01/22 22:00 07/02/22 09:49 Sacubitril/Valsartan 24-26 Mg Tab PO 1 each BID RAMEZ Administration Senna 8.6 mg 06/25/22 22:00 07/02/22 09:49 Sennosides 8.6 Mg Tab PO 8.6 mg BID RAMEZ Administration Sodium Chloride 10 ml 06/25/22 22:00 07/02/22 09:49 Sodium Chloride 0.9% 10 Ml Flush Syringe IV 10 ml BID RAMEZ Administration Sodium Chloride 10 ml 06/25/22 11:23 Sodium Chloride 0.9% 10 Ml Flush Syringe IV PRN PRN LINE FLUSH Tamsulosin HCl 0.4 mg 06/26/22 10:00 07/02/22 09:48 Tamsulosin 0.4 Mg Cap PO 0.4 mg QDAY RAMEZ Administration Nutrition/Malnutrition Assess - Dietary Evaluation Nutrition/Malnutrition Findings: Nutrition Notes Start: 06/25/22 18:00 Freq: Status: Active Protocol: Document 06/26/22 14:43 HEATHER (Rec: 06/26/22 15:10 HEATHER [id number]) Nutrition Notes Initial or Follow up Brief Note Current Diagnosis Hypertension,Malnutrition, Stroke Other Pertinent Diagnosis Metabolic Encephalopathy & Acidosis, Atrial Fibrilation, SIRS, Prostate Can Current Diet Cardiac Diet (since D 06/26). 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 2.476 Kg body weight loss in 1 day reported. Weight Status Appropriate Subjective/Other Information RD consult for skin risk assessment. Still no reports available on Pt's PO intake of meals at the time, will assess at F/U. Pt is on Room Air, O2 saturation @ 98%, according to Physical Assessment History notes. Pt presents an unspecified area of concern in the sacral area -apparently healing-, according to Physical Assessment History notes. Percent of energy/protein needs met: Prescribed Cardiac Diet provides for energy/protein needs (2,230 Kcal/85 g) during LOS. Is patient on ventilator? No Is Patient Ambulatory and/or Out of Bed Yes REE-([facility]-ambulatory/OOB) [ [id number] [id number]] Kcal/Kg value to use for calculation 29 Approximate Energy Requirements Using 2143 kcal/Kg Calculation Used for Recommendations Kcal/kg Additional Notes Protein: 1-1.2 g/Kg ABW; 76-91 g/day. Fluids: 1 ml/Kcal, or as per MD. Nutrition Intervention Change Diet Order: Change to Cardiac Diet. Follow-Up By: 07/03/22 Additional Comments Continue monitoring food tolerance, %PO intake of meals , and BM.
--- NOTE | 2022-07-02 13:25 | Discharge Summary ---
Providers - Providers Date of Admission: 06/25/22 11:27 Date of discharge: 07/02/22 Attending physician: TERESA ARMSTRONG MD 06/25/22 11:27 Consult to Case Management [CONS] Routine Services Needed at Discharge: Sap Bi Developer Notified:: no Consult to Dietitian/Nutrition [CONS] Routine Physician Instructions: Reason For Exam: Reason for Consult: Nutrition Recommendations Reason for Consult: Malnutrition Consult to Physician [CONS] Routine Comment: Consulting Provider: MILIND CRUZ Physician Instructions: Reason For Exam: encephalopthy Occupational Therapy Evaluate and Treat [CONS] Routine Comment: Reason For Exam: Neuro deficits Physical Therapy Evaluation and Treat [CONS] Routine Comment: Reason For Exam: Neuro deficits 06/25/22 11:39 Speech Therapy Evaluation and Treat [CONS] Routine Reason For Exam: CVA 06/25/22 12:07 Consult to Physician [CONS] Routine Comment: Consulting Provider: ALMAS BREWER Physician Instructions: Reason For Exam: AFIB 06/26/22 14:18 PICC Line Insertion [Consult to PICC Line RN] [CONS] Routine Reason For Exam: vasopressor use Type Line:: PICC 06/26/22 14:39 Consult to Physician [CONS] Routine Comment: called cell/sarahy Consulting Provider: ÁLVARO ENRIQUEZ Physician Instructions: Reason For Exam: stage IV prostate CA Primary care physician: COMMISSIONS ANALYST Hospitalization Reason for admission: Subacute ischemic CVA Condition: Stable Pertinent studies: Reviewed. Procedures: None. Hospital course: Patient is an 82-year-old male with past medical history of CVA about 13 years ago, stage IV prostate cancer currently started on bicalutamide 3 days ago. He presents to the ED today with complaints of strokelike symptoms worsening confusion and right-sided weakness with spasms. Per the the patient has some expressive aphasia that appeared to have worsened today and since the initiation of thebicalutamide the patient has been experiencing right-sided upper extremity weakness but today had increased spasm on the right upper extremity and worsening confusion today. They brought him to the ER where code stroke was called there was also concern of abnormality on the EKG which showed A. fib with bundle branch block instead. There was also noted hypotension and patient recommended for inpatient admission. Initial CT scan of the head shows the previous stroke but no acute pathology at this time. Patient does not present any fever patient is accompanied by the who denies any nausea vomiting or diarrhea. Patient was seen by teleneurology who states that he is not a candidate for tPA but recommended further stroke work-up if no other finding for the altered mental status. Patient underwent MRI brain with and without contrast that revealed subacute ischemia. TTE was unremarkable for bubble study. Patient was evaluated by physical therapy and Occupational Therapy who recommended subacute rehab. Cardiology and neurology were consulted regarding anticoagulation in the light of a subacute stroke. The patient was started on Eliquis 2.5 mg twice daily. Patient underwent carotid Doppler ultrasound that was unremarkable for occlusion. The patient was found to be incidentally positive for COVID-19 infection. During the patient's hospital course, he was found to have an OPAL secondary to vasomotor nephropathy and urinary obstruction. The patient had a Javier catheter placed that he will keep upon discharge. Patient will follow up with urology in outpatient setting. Patient is medically clear for discharge. Disposition: 01 HOME / SELF CARE / HOMELESS Final Discharge Diagnosis (Prints w/discharge instructions): Subacute ischemic CVA, atrial fibrillation, moderate protein caloric malnutrition, history of chronic systolic heart failure, lactic acidosis, stage IV prostate cancer, COVID-19 infection Time spent for discharge: 45 min Core Measure Documentation - Palliative Care Palliative Care/ Comfort Measures: Not Applicable - Core Measures Any of the following diagnoses?: stroke - Stroke Discharge Requirements Statin for LDL = or >70 mg/dl on DC: Yes Anticoag for atrial fib/atrial flutter: Yes Antithrombotic for ischemic stroke: No Reason for no antithrombotic on DC: Not Indicated Exam - Constitutional Vitals: Temp Pulse Resp BP Pulse Ox 98.0 F 69 20 119/60 97 07/02/22 00:19 07/02/22 07:58 07/02/22 00:19 07/02/22 07:58 07/02/22 08:29 General appearance: Present: no acute distress, other (Dysarthria) - EENT Eyes: Present: PERRL, EOM intact ENT: hearing intact, clear oral mucosa - Neck Neck: Present: supple, normal ROM - Respiratory Respiratory effort: normal Respiratory: bilateral: CTA - Cardiovascular Rhythm: regular Heart Sounds: Present: S1 & S2 - Extremities Extremities: no ischemia, pulses intact, pulses symmetrical, No edema, normal temperature, normal color Peripheral Pulses: within normal limits - Abdominal General gastrointestinal: Present: soft, non-tender, non-distended, normal bowel sounds Male genitourinary: Present: deferred - Rectal Rectal Exam: deferred - Integumentary Integumentary: Present: clear, warm, dry - Musculoskeletal Musculoskeletal: right sided weakness - Psychiatric Psychiatric: appropriate mood/affect, cooperative - Neurologic Neurologic: CNII-XII intact - Allied Health Allied health notes reviewed: nursing, case management Plan Activity: no restrictions Diet: low salt Additional Instructions: Patient is an 82-year-old male with past medical history of CVA about 13 years ago, stage IV prostate cancer currently started on bicalutamide 3 days ago. He presents to the ED today with complaints of strokelike symptoms worsening confusion and right-sided weakness with spasms. Per the the patient has some expressive aphasia that appeared to have worsened today and since the initiation of thebicalutamide the patient has been experiencing right-sided upper extremity weakness but today had increased spasm on the right upper extremity and worsening confusion today. They brought him to the ER where code stroke was called there was also concern of abnormality on the EKG which showed A. fib with bundle branch block instead. There was also noted hypotension and patient recommended for inpatient admission. Initial CT scan of the head shows the previous stroke but no acute pathology at this time. Patient does not present any fever patient is accompanied by the who denies any nausea vomiting or diarrhea. Patient was seen by teleneurology who states that he is not a candidate for tPA but recommended further stroke work-up if no other finding for the altered mental status. Patient underwent MRI brain with and without contrast that revealed subacute ischemia. TTE was unremarkable for bubble study. Patient was evaluated by physical therapy and Occupational Therapy who recommended subacute rehab. Cardiology and neurology were consulted regarding anticoagulation in the light of a subacute stroke. The patient was started on Eliquis 2.5 mg twice daily. Patient underwent carotid Doppler ultrasound that was unremarkable for occlusion. The patient was found to be incidentally positive for COVID-19 infection. During the patient's hospital course, he was found to have an OPAL secondary to vasomotor nephropathy and urinary obstruction. The patient had a Javier catheter placed that he will keep upon discharge. Patient will follow up with urology in outpatient setting. Patient is medically clear for discharge. Care Plan Goals: Patient is medically clear for discharge. Assessment: Patient is an 82-year-old male with past medical history of CVA about 13 years ago, stage IV prostate cancer currently started on bicalutamide 3 days ago. He presents to the ED today with complaints of strokelike symptoms worsening confusion and right-sided weakness with spasms. Per the the patient has some expressive aphasia that appeared to have worsened today and since the initiation of thebicalutamide the patient has been experiencing right-sided upper extremity weakness but today had increased spasm on the right upper extremity and worsening confusion today. They brought him to the ER where code stroke was called there was also concern of abnormality on the EKG which showed A. fib with bundle branch block instead. There was also noted hypotension and patient recommended for inpatient admission. Initial CT scan of the head shows the previous stroke but no acute pathology at this time. Patient does not present any fever patient is accompanied by the who denies any nausea vomiting or diarrhea. Patient was seen by teleneurology who states that he is not a candidate for tPA but recommended further stroke work-up if no other finding for the altered mental status. Patient underwent MRI brain with and without contrast that revealed subacute ischemia. TTE was unremarkable for bubble study. Patient was evaluated by physical therapy and Occupational Therapy who recommended subacute rehab. Cardiology and neurology were consulted regarding anticoagulation in the light of a subacute stroke. The patient was started on Eliquis 2.5 mg twice daily. Patient underwent carotid Doppler ultrasound that was unremarkable for occlusion. The patient was found to be incidentally positive for COVID-19 infection. During the patient's hospital course, he was found to have an OPAL secondary to vasomotor nephropathy and urinary obstruction. The patient had a Javier catheter placed that he will keep upon discharge. Patient will follow up with urology in outpatient setting. Patient is medically clear for discharge. Follow up with: PRIMARY CAREMD [Primary Care Provider] - 3-5 Days URSULA MARCOS MD [Staff Physician] - 14 Days Prescriptions: AtorvaSTATin [Lipitor] 40 mg PO QHS #30 tablet Aspirin [Aspirin BABY CHEW TAB] 81 mg PO QDAY #30 tab.chew carvediloL [Coreg] 3.125 mg PO BID #60 tablet Apixaban [Eliquis] 2.5 mg PO Q12HR #60 tablet Sacubitril/Valsartan [Entresto 24 - 26 mg] 1 each PO BID #60 tablet Tamsulosin [Flomax] 0.4 mg PO QDAY #30 cap Midodrine [Proamatine] 10 mg PO TID@0800,1200,1600 #90 tablet Sennosides Tab [Senokot] 8.6 mg PO BID #60 tablet
[2022-07-02 14:17] VITALS: BP 103/67
--- NOTE | 2022-07-02 15:01 | Progress Note ---
Assessment and Plan - Patient Problems (1) Atrial fibrillation Status: Acute Plan to address problem: 82-year-old man who presents with altered mental status and is undergoing neurological work-up for possible CVA, presented with abnormal ECG that shows atrial fibrillation, well-controlled ventricular rate, unknown chronicity. 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 With regards to management of atrial fibrillation, recommend oral anticoagulation as previously outlined, when neurology gives okay. There is no indication for AV hector blocking agents, patient is rate controlled at baseline. Subjective Date of service: 07/02/22 Principal diagnosis: CVA, atrial fibrillation Interval history: Patient is comfortable, no acute distress, no new cardiac complaints. Objective Vital Signs Temp Pulse Resp BP Pulse Ox 07/02/22 12:03 64 103/67 97 07/02/22 08:29 97 07/02/22 07:58 69 119/60 99 07/02/22 00:19 98.0 F 72 20 102/62 100 07/01/22 22:00 76 07/01/22 20:07 97 07/01/22 19:54 97.9 F 71 32 H 109/69 99 07/01/22 15:31 98.7 F 69 100/56 100 - Physical Examination General: No Apparent Distress HEENT: Positive: PERRL Neck: Positive: neck supple Cardiac: Positive: Irregularly Regular Lungs: Positive: Decreased Breath Sounds Neuro: Positive: Weakness (Generalized lethargy, nonfocal) Abdomen: Positive: Soft Skin: Positive: Clear Extremities: Absent: edema
[2022-07-11] MEDS ORDERED: APIXABAN 2.5 MG TAB PO SCH (10:00)
== END 2022-07-02 15:30 | DRG 64 ==
LOC: ED 07:56 → CC1 11:27 → 4A 06-27 21:47
PROVIDERS: ADMIT Internal Medicine; ATTEND Student in an Organized Health Care Education/Training Program
PROC: 02HV33Z Insertion of Infusion Device into Superior Vena Cava, Percutaneous Approach (ICD-10-PCS; principal; 2022-06-26)
PROC: B548ZZA Ultrasonography of Superior Vena Cava, Guidance (ICD-10-PCS; 2022-06-26)
DX: I63.89 Other cerebral infarction (principal); U07.1 COVID-19; N17.0 Acute kidney failure with tubular necrosis; G93.41 Metabolic encephalopathy; R65.10 Systemic inflammatory response syndrome (SIRS) of non-infectious origin without acute organ dysfunction; E44.0 Moderate protein-calorie malnutrition; E87.1 Hypo-osmolality and hyponatremia; I50.42 Chronic combined systolic (congestive) and diastolic (congestive) heart failure; I42.0 Dilated cardiomyopathy; I48.21 Permanent atrial fibrillation; I11.0 Hypertensive heart disease with heart failure; C61 Malignant neoplasm of prostate; E83.51 Hypocalcemia; Z68.24 Body mass index [BMI] 24.0-24.9, adult; I95.9 Hypotension, unspecified; R13.10 Dysphagia, unspecified; R47.1 Dysarthria and anarthria; G83.21 Monoplegia of upper limb affecting right dominant side; I48.0 Paroxysmal atrial fibrillation; R26.81 Unsteadiness on feet; H40.9 Unspecified glaucoma; E86.9 Volume depletion, unspecified; N13.9 Obstructive and reflux uropathy, unspecified; Z79.899 Other long term (current) drug therapy
CPT/HCPCS: 36415; 70450; 70544; 70551; 71045; 80048; 80053; 80061; 80307; 81001; 82140; 82565; 82570; 82607; 82728; 82962; 83036; 83550; 83735; 84300; 84443; 84550; 85025; 85027; 85610; 85730; 86147; 87040; 93005; 93306; 93880; G0378; J2354; C8929; J0696; J1644; J2916; J7030; J7040; U0003